=== PATIENT | female | born 1950 | race African-American/Black ===

== ENCOUNTER 2017-10-23 19:30 | Inpatient (IN) | payer OTHER ==
[~2017-10-23 19:30] MED LIST: Lidocaine 1% PF 5 ML VIAL ONE; PHENYLEPHRINE-NS 100 MCG/ML 10 ML SYRINGE ONE; PROPOFOL 200 MG/20 ML VIAL ONE; Succinylcholine Chloride 20 MG/ML 10 ml SYRINGE FS ONE; ePHEDrine/0.9% NaCl/PF SYRINGE 50 mg/10 ml ONE
[2017-10-23 19:59] LABS: Hemoglobin 12.1 g/dL (12.0-16.0); Mean Corpuscular HGB CONC 34.2 g/dL (32.0-36.0); Mean Corpuscular Hemoglobin 32.1 pg (27.0-31.0); Mean Platelet Volume 6.4 fL (7.4-10.4); Platelet Count 318 thou/uL (130-400); RBC Distribution Width 11.1 % (11.5-14.5); Red Blood Cell (RBC) Count 3.75 mill/uL (4.20-5.40); White Blood Cell (WBC) Count 15.7 thou/uL (4.8-10.8)
[2017-10-23 20:06] LABS: INR-International Normal Ratio 1.2; PTT 27.6 SEC (22.9-36.1); Prothrombin Time 14.9 SEC (12.0-14.7)
[2017-10-23 20:10] LABS: ALT (SGPT) 73 U/L (8-55); AST (SGOT) 219 U/L (5-34); Albumin 3.2 g/dL (3.4-4.8); Alkaline Phosphatase 113 U/L (40-150); Anion Gap 17 mmol/L (10-20); BUN (Urea Nitrogen) 21 mg/dL (9.8-20.1); Bilirubin, Total 0.4 mg/dL (0.2-1.2); Calc. Creatinine Clearance 0 mL/min (70-130); Calcium 7.9 mg/dL (7.8-10.44); Carbon Dioxide 14 mmol/L (23-31); Chloride 106 mmol/L (98-107); Estimated GFR-MDRD 25; Globulin 3.4 g/dL (2.4-3.5); Glucose 225 mg/dL (80-115); Potassium 3.8 mmol/L (3.5-5.1); Protein, Total 6.6 g/dL (6.0-8.3); Sodium 133 mmol/L (136-145)
--- NOTE | 2017-10-23 20:10 | RAD ---
AP PELVIS: 10/23/17 HISTORY: Injury, pain in the pelvis. FINDINGS/IMPRESSION: No definite acute fracture or dislocation is seen. POS: [facility]
--- NOTE | 2017-10-23 20:12 | RAD ---
PORTABLE CHEST ONE VIEW: 10/23/17 at 7:44 p.m. HISTORY: Injury, chest pain. FINDINGS/IMPRESSION: The heart size is borderline. The lungs are expanded without focal areas of consolidation, pneumothor ax, or pleural effusions. There are fractures involving the left proximal humerus. POS: [facility]
--- NOTE | 2017-10-23 20:13 | RAD ---
RIGHT FEMUR TWO VIEWS: 10/23/17 HISTORY: Injury. FINDINGS/IMPRESSION: There is a comminuted fracture involving the distal shaft of the right femur. POS: [facility]
[2017-10-23 20:15] LABS: Band 4 % (5-11); Eosinophils 1 % (0-10); Lymphocytes 7 % (21-51); MDiff Complete? YES; Monocytes 5 % (0-10); Neutrophil 83 % (42-75); PLT Morphology Comment Appears Adequate
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
--- NOTE | 2017-10-23 20:25 | CT ---
CT CERVICAL SPINE 10/23/17 PROVIDED CLINICAL HISTORY: Level I trauma. FINDINGS: There is no evidence for fracture or traumatic subluxation. Surgical spine degenerative changes are s een. No prevertebral soft tissue swelling evident. The visualized lung apices appear clear. IMPRESSION: No evidence for fracture or traumatic subluxation. POS: [facility]
[2017-10-23] MEDS ORDERED: Adacel (T-DAP) 0.5 ML VIAL ONE (20:29)
[2017-10-23] MEDS ORDERED: CEFAZOLIN/Water 2 GM/20 ML SYRINGE ONE (20:29)
[2017-10-23] MEDS ORDERED: Dextrose 50% Abboject 50 ML SYRINGE SLOW IVP PRN ×2 (20:43→21:03)
[2017-10-23] MEDS ORDERED: Dextrose 5% in Water 1,000 ML IV PRN ×2 (20:43→21:03)
--- NOTE | 2017-10-23 20:44 | RAD ---
LEFT HUMERUS RADIOGRAPHS 10/23/17 PROVIDED CLINICAL HISTORY: Left arm pain status post injury. FINDINGS: There is a comminuted displaced fracture of the left proximal humerus involving the proximal humeral metadiaphyseal region and likely also the greater tuberosity. The glenohumeral relationship is not we ll assessed on the basis of this study. Foci of increased density projects in the soft tissues anteri or to the distal humerus along with soft tissue gas, presumably reflecting foreign bodies. IMPRESSION: Proximal humeral fracture and distal humeral soft tissue foreign bodies. POS: [facility]
--- NOTE | 2017-10-23 20:47 | RAD ---
TWO VIEWS OF THE LEFT ELBOW: 10/23/17 PROVIDED CLINICAL HISTORY: Left elbow pain status post injury. FINDINGS: Evaluation is limited as the patient is unable to tolerate routine positioning. If there is evidence for a fracture fragment projecting at the ulnar aspect of the distal humerus on the frontal view, the donor site for which is not definitely evident on the basis of this study. There are radiopaque fore ign bodies seen within the soft tissues at the anterior aspect of the elbow. Soft tissue gas is also seen. IMPRESSION: 1. Fracture fragment adjacent to the distal humerus, the donor site for which is not definitely certain. 2. Soft tissue gas and soft tissue foreign bodies. POS: [facility]
--- NOTE | 2017-10-23 21:00 | CT ---
CT CHEST WITH IV CONTRAST CT ABDOMEN WITH IV CONTRAST CT PELVIS WITH IV CONTRAST CORONAL AND SAGITTAL REFORMATIONS OF THE THORACOLUMBAR SPINE: 10/23/17 HISTORY: Level I trauma. FINDINGS: No mediastinal hematoma or intimal flap in the aorta is seen to suggest aortic transection. No perica rdial or left pleural effusion seen. A tiny right pleural effusion is present. A small right pneumoth orax is present. A 15 mm nodule is seen in the right breast. The liver, spleen, pancreas, adrenal glands and kidneys are intact. Gallbladder and urinary bladder a lso appear intact. The uterus is present. There is emphysema in the soft tissue and subcutaneous fat in the right lower lateral chest extending posteriorly in the abdomen and pelvis. The air dissects into the right lower anterolateral wall musc ulature and in the right lower retroperitoneum. There are multiple right sided rib fractures from the fourth through the twelfth ribs. A comminuted f racture of the left proximal humerus is present. There is a buckle fracture of the anterior aspect of the left sacral ala. There are fractures involving the left superior and inferior pubic rami and the medial aspect of the right superior pubic ramus. Adjacent soft tissue swelling is seen in the anteri or aspect of the right lower abdomen/pelvis. Soft tissue swelling is also noted in the left posterola teral pelvis. Absence of oral contrast reduces the sensitivity of the exam particularly for evaluation of bowel. Emerson wel injury cannot be excluded on this study. IMPRESSION: 1. No definite evidence of solid organ injury. 2. Small right pneumothorax with multiple right sided rib fractures (4-12). 3. Comminuted left proximal humerus fracture. 4. Fractures of the pelvis as discussed above. 5. Soft tissue emphysema and retroperitoneal air as above. Discussed over the telephone with ER physician, Dr. Dagoberto Palencia at 8:36 p.m. POS: [facility]
[2017-10-23] MEDS ORDERED: Morphine 4 MG/ML VIAL SLOW IVP PRN (21:01)
[2017-10-23] MEDS ORDERED: Ondansetron ODT 4 MG TAB PO PRN (21:03)
[2017-10-23] MEDS ORDERED: Ondansetron HCl/PF 4 MG/2 ML Vial IVP PRN (21:03)
[2017-10-23 21:13] LABS: Bilirubin Negative (Negative); Blood, Urine Moderate (Negative); Clarity TURBID (Clear); Glucose, Urine (Dipstick) Negative (Negative); Leukocyte Large (Negative); Nitrite Positive (Negative); Protein, Urine (Dipstick) 100 mg/dL (Neg-Trace); Specific Gravity, Urine 1.024 (1.002-1.036); Urobilinogen 0.2 mg/dL (0.2-1.0); pH, Urine 5.5 (5.0-9.0)
[2017-10-23 21:15] LABS: Bacteria/HPF 4+ HPF (None Seen); Yeast-AUWi Flag 9.7 (0-25.0)
[2017-10-23] MEDS ORDERED: traMADol HCl 50 MG TAB PO SCH (21:15)
[2017-10-23 21:18] LABS: Pathc Cast-AUWi Flag 12.63 (0-2.49)
[2017-10-23 21:19] LABS: Hyaline Casts/LPF 4-6 HYALINE CAST LPF (0-3 Hyaline)
[2017-10-23] MEDS ORDERED: Sodium Bicarbonate 100 MEQ in Dextrose 5% in Water 1,000 ML IV SCH (21:30)
--- NOTE | 2017-10-23 22:22 | RAD ---
RIGHT KNEE TWO VIEWS: 10/23/17 HISTORY: Injury, right knee pain. FINDINGS/IMPRESSION: There are comminuted fractures involving the distal shaft of the right femur. POS: [facility]
[2017-10-23] MEDS ORDERED: Fentanyl 250 MCG/5 ML VIAL ONE (22:23)
[2017-10-23] MEDS ORDERED: Midazolam HCl 2 mg/2 ml Vial ONE (22:23)
[2017-10-23] MEDS ORDERED: metroNIDAZOLE 500 MG/100 ML BAG ONE (22:41)
[2017-10-23] MEDS ORDERED: cefTRIAXone\\ROCEPHIN 1 GM VIAL ONE (22:48)
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
[2017-10-24] MEDS ORDERED: Promethazine HCl 25 MG/ML VIAL SLOW IVP PRN (02:46)
[2017-10-24] MEDS ORDERED: Ondansetron HCl/PF 4 MG/2 ML Vial IVP PRN (02:46)
[2017-10-24] MEDS ORDERED: Promethazine HCl 25 MG/ML VIAL IM PRN (02:46)
[2017-10-24] MEDS: Senokot S 8.6-50 MG TAB PO SCH ×3 (04:05→20:45)
[2017-10-24] MEDS: Acetaminophen 1,000 MG in Premix Bag 1 BAG IVPB SCH ×3 (04:05→09:41)
[2017-10-24 05:13] LABS: #Monocytes 0.2 thou/uL (0.11-0.59); #Neutrophils 8.2 thou/uL (1.40-6.50); %Eosinophils 0.2 % (0.0-10.0); %Lymphocytes 10.2 % (21.0-51.0); %Monocytes 2.5 % (0.0-10.0); %Neutrophils 87.1 % (42.0-75.0); Hemoglobin 10.4 g/dL (12.0-16.0); Mean Corpuscular HGB CONC 33.2 g/dL (32.0-36.0); Mean Corpuscular Hemoglobin 32.5 pg (27.0-31.0); Mean Platelet Volume 6.9 fL (7.4-10.4); Platelet Count 315 thou/uL (130-400); RBC Distribution Width 11.3 % (11.5-14.5); White Blood Cell (WBC) Count 9.5 thou/uL (4.8-10.8)
[2017-10-24 05:24] LABS: Anion Gap 20 mmol/L (10-20); BUN (Urea Nitrogen) 25 mg/dL (9.8-20.1); Calc. Creatinine Clearance 25 mL/min (70-130); Calcium 7.6 mg/dL (7.8-10.44); Carbon Dioxide 13 mmol/L (23-31); Chloride 107 mmol/L (98-107); Estimated GFR-MDRD 16; Glucose 203 mg/dL (80-115); Magnesium 1.7 mg/dL (1.6-2.6); Phosphorus 7.9 mg/dL (2.3-4.7); Potassium 5.5 mmol/L (3.5-5.1); Sodium 134 mmol/L (136-145)
[2017-10-24 05:33] LABS: Lactic Acid 7.6 mmol/L (0.5-2.2)
[2017-10-24] MEDS: metroNIDAZOLE 500 MG in Premix Bag 1 BAG IVPB SCH ×2 (06:04→13:51)
--- NOTE | 2017-10-24 08:07 | RAD ---
PORTABLE CHEST: DATE: 10/24/17. PROVIDED CLINICAL HISTORY: Pneumothorax. FINDINGS: Cardiac and mediastinal silhouette is within normal limits. Lungs appear clear. No radiographically apparent pneumothorax. Right-sided rib fractures are seen. IMPRESSION: No radiographically apparent pneumothorax. POS: [facility]
--- NOTE | 2017-10-24 08:44 | RAD ---
TWO VIEWS OF THE LEFT ELBOW: DATE: 10/24/17. Provided CLINICAL HISTORY: Fracture. FINDINGS: Two spot fluoroscopic intraoperative images demonstrate screw fixation of medial humeral epicondylar fracture fragment with subsequent improved alignment. POS: [facility]
--- NOTE | 2017-10-24 08:57 | RAD ---
TWO VIEWS OF THE RIGHT FEMUR: DATE: 10/24/17. PROVIDED CLINICAL HISTORY: ORIF. FINDINGS: Spot fluoroscopic frontal and lateral views of the right femur demonstrate lateral side plate and scr ew fixation of previously described right distal femoral fracture. There is resultant improved align ment. POS: [facility]
[2017-10-24] MEDS ORDERED: Sulfameth/Trimethoprim DS 800-160mg TAB PO SCH (09:00)
[2017-10-24] MEDS ORDERED: Heparin 1,000 UNITS/ML VIAL ONE (09:00)
[2017-10-24] MEDS ORDERED: Prevnar 13-Val Conj/PF 0.5 ML SYRINGE IM ONE (09:00)
--- NOTE | 2017-10-24 09:13 | RAD ---
LEFT ELBOW RADIOGRAPHS 2 VIEWS: DATE: 10/23/17. PROVIDED CLINICAL HISTORY: Injury. FINDINGS: Comparison is made with the examination performed earlier same date. There is a fracture involving t he medial humeral epicondyle which appears displaced distally and anteriorly. No additional fracture is evident. Soft tissue gas is seen. Intraarticular gas is likely present. Increased radiodensity within the soft tissues of the anterior distal humeral region may reflect foreign body. IMPRESSION: Displaced medial humeral epicondylar fracture with associated intraarticular gas. POS: [facility]
[2017-10-24] MEDS: Famotidine 20 MG TAB PO SCH (09:31)
[2017-10-24] MEDS: traMADol HCl 50 MG TAB PO SCH ×2 (09:32→20:46)
[2017-10-24] MEDS: HumaLOG 300 UNITS/3 ML VIAL SC PRN ×2 (11:04→15:41)
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
[2017-10-24] MEDS: Acetaminophen 500 MG TAB PO SCH ×2 (11:43→17:29)
--- NOTE | 2017-10-24 13:22 | CT ---
CT OF THE LEFT SHOULDER: DATE: 10/24/17. PROVIDED CLINICAL HISTORY: Left proximal humerus fracture. FINDINGS: There is a markedly comminuted and displaced fracture of the left proximal humerus. There is a segme ntal fracture of the proximal humeral metadiaphyseal region with medial displacement of the distal h umeral diaphyseal component with respect to the segmental fragment. There is a displaced fracture of the greater tuberosity of the humerus with displacement of the greater tuberosity cephalad and poste riorly. Lesser tuberosity and humeral head remain as a separate fragment. The glenohumeral relation ship is maintained, though the fragment is prominently internally rotated. Joint effusion and adjace nt soft tissue edema are seen. There is poor definition to the short head biceps/coracobrachialis mu sculature which may reflect edema, hematoma, or muscular and tendinous disruption. The glenoid and r emainder of the scapula appear normal. The visualized left lung field appears clear. IMPRESSION: 1. Markedly comminuted and displaced left proximal humeral fracture as described above. 2. Abnormal appearance to the short head biceps and coracobrachialis musculature suggesting injury. POS: [facility]
[2017-10-24] MEDS: Sodium Bicarbonate 150 MEQ in Dextrose 5% in Water 1,000 ML IV SCH (14:25)
[2017-10-24] MEDS: Heparin 5,000 UNITS/ML VIAL SC SCH ×2 (14:25→20:46)
[2017-10-24 15:59] LABS: Lactic Acid 5.9 mmol/L (0.5-2.2)
[2017-10-24 16:04] LABS: Anion Gap 19 mmol/L (10-20); BUN (Urea Nitrogen) 27 mg/dL (9.8-20.1); Calc. Creatinine Clearance 22 mL/min (70-130); Calcium 6.5 mg/dL (7.8-10.44); Carbon Dioxide 13 mmol/L (23-31); Chloride 98 mmol/L (98-107); Estimated GFR-MDRD 14; Glucose 139 mg/dL (80-115); Potassium 4.3 mmol/L (3.5-5.1); Sodium 126 mmol/L (136-145)
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
[2017-10-24] MEDS: Cipro 250 MG TAB PO SCH (20:45)
[2017-10-24] MEDS ORDERED: cefTRIAXone\\ROCEPHIN 2 GM in Sodium Chloride 0.9% 100 ML IVPB SCH (22:00)
[2017-10-25] MEDS: metroNIDAZOLE 500 MG in Premix Bag 1 BAG IVPB SCH ×2 (00:24→06:09)
[2017-10-25] MEDS: Acetaminophen 500 MG TAB PO SCH ×4 (00:30→17:55)
[2017-10-25] MEDS: Sodium Bicarbonate 150 MEQ in Dextrose 5% in Water 1,000 ML IV SCH (03:17)
[2017-10-25 04:31] LABS: #Eosinphils 0.1 thou/uL (0.0-0.7); #Lymphocytes 1.4 thou/uL (1.20-3.40); #Monocytes 0.3 thou/uL (0.11-0.59); #Neutrophils 6.5 thou/uL (1.40-6.50); %Basophils 0.3 % (0.0-1.0); %Eosinophils 0.8 % (0.0-10.0); %Lymphocytes 16.5 % (21.0-51.0); %Monocytes 4.1 % (0.0-10.0); %Neutrophils 78.3 % (42.0-75.0); Hemoglobin 8.3 g/dL (12.0-16.0); Mean Corpuscular HGB CONC 34.6 g/dL (32.0-36.0); Mean Corpuscular Hemoglobin 32.6 pg (27.0-31.0); Mean Corpuscular Volume 94.3 fl (81.0-99.0); Mean Platelet Volume 7.2 fL (7.4-10.4); Platelet Count 210 thou/uL (130-400); RBC Distribution Width 11.1 % (11.5-14.5); Red Blood Cell (RBC) Count 2.55 mill/uL (4.20-5.40); White Blood Cell (WBC) Count 8.3 thou/uL (4.8-10.8)
[2017-10-25 04:50] LABS: Anion Gap 21 mmol/L (10-20); BUN (Urea Nitrogen) 31 mg/dL (9.8-20.1); CK (CPK) 3175 U/L (29-168); Calc. Creatinine Clearance 17 mL/min (70-130); Calcium 6.2 mg/dL (7.8-10.44); Carbon Dioxide 16 mmol/L (23-31); Chloride 93 mmol/L (98-107); Estimated GFR-MDRD 11; Glucose 146 mg/dL (80-115); Magnesium 1.2 mg/dL (1.6-2.6); Phosphorus 7.3 mg/dL (2.3-4.7); Potassium 4.4 mmol/L (3.5-5.1); Sodium 126 mmol/L (136-145)
[2017-10-25] MEDS ORDERED: Sodium Chloride 0.9% 500 ML IV SCH (05:15)
[2017-10-25] MEDS: Cipro 250 MG TAB PO SCH ×2 (06:09→21:07)
[2017-10-25] MEDS ORDERED: Magnesium Sulfate 2 GM in Sodium Chloride 0.9% 250 ML 250 ML IVPB SCH (07:30)
[2017-10-25] MEDS ORDERED: CEFAZOLIN/Water 2 GM/20 ML SYRINGE SLOW IVP SCH (07:30)
[2017-10-25] MEDS ORDERED: Magnesium 2 GM/NS 0.9% 100 ML 2 GM in Premix Bag 1 BAG IVPB SCH (07:45)
[2017-10-25] MEDS: traMADol HCl 50 MG TAB PO SCH ×2 (09:33→21:06)
[2017-10-25] MEDS: Famotidine 20 MG TAB PO SCH (09:43)
[2017-10-25] MEDS: Senokot S 8.6-50 MG TAB PO SCH ×2 (09:43→21:06)
[2017-10-25] MEDS ORDERED: CEFAZOLIN/Water 2 GM/20 ML SYRINGE ONE (11:55)
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
[2017-10-25] MEDS ORDERED: Morphine 10 MG/ML VIAL ONE (13:35)
[2017-10-25] MEDS ORDERED: Glycopyrrolate 0.2 MG/ML 5 ML SYRINGE ONE (15:48)
[2017-10-25] MEDS ORDERED: PROPOFOL 200 MG/20 ML VIAL ONE (15:48)
[2017-10-25] MEDS ORDERED: Lidocaine 1% PF 5 ML VIAL ONE (15:48)
[2017-10-25] MEDS ORDERED: ePHEDrine/0.9% NaCl/PF SYRINGE 50 mg/10 ml ONE (15:48)
[2017-10-25] MEDS ORDERED: PHENYLEPHRINE-NS 100 MCG/ML 10 ML SYRINGE ONE (15:48)
[2017-10-25] MEDS ORDERED: Furosemide 20 MG/2 ML VIAL ONE (15:49)
[2017-10-25] MEDS ORDERED: Ondansetron HCl/PF 4 MG/2 ML Vial IVP PRN (15:55)
[2017-10-25] MEDS ORDERED: Promethazine HCl 25 MG/ML VIAL SLOW IVP PRN (15:55)
[2017-10-25] MEDS ORDERED: Promethazine HCl 25 MG/ML VIAL IM PRN (15:55)
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
[2017-10-25] MEDS: Heparin 5,000 UNITS/ML VIAL SC SCH (21:08)
[2017-10-26] MEDS: Acetaminophen 500 MG TAB PO SCH ×4 (00:12→18:10)
[2017-10-26] MEDS: Sodium Bicarbonate 150 MEQ in Dextrose 5% in Water 1,000 ML IV SCH (00:12)
[2017-10-26] MEDS ORDERED: Magnesium 2 GM/NS 0.9% 100 ML 2 GM in Premix Bag 1 BAG IVPB SCH (04:15)
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
[2017-10-26] MEDS: Cipro 250 MG TAB PO SCH (05:31)
[2017-10-26 06:01] LABS: Albumin 2.2 g/dL (3.4-4.8); Anion Gap 20 mmol/L (10-20); BUN (Urea Nitrogen) 44 mg/dL (9.8-20.1); BUN/Creatinine Ratio 6.53; Calc. Creatinine Clearance 14 mL/min (70-130); Carbon Dioxide 19 mmol/L (23-31); Chloride 91 mmol/L (98-107); Estimated GFR-MDRD 7; Glucose 104 mg/dL (80-115); Phosphorus 7.7 mg/dL (2.3-4.7); Potassium 4.3 mmol/L (3.5-5.1); Sodium 126 mmol/L (136-145)
[2017-10-26 06:11] LABS: Calcium 5.9 mg/dL (7.8-10.44)
[2017-10-26] MEDS ORDERED: cefTRIAXone\\ROCEPHIN 1 GM in Sodium Chloride 0.9% 100 ML IVPB SCH (09:15)
[2017-10-26] MEDS: traMADol HCl 50 MG TAB PO SCH ×2 (09:53→21:03)
[2017-10-26] MEDS: Senokot S 8.6-50 MG TAB PO SCH ×2 (09:53→21:03)
[2017-10-26] MEDS: Famotidine 20 MG TAB PO SCH (09:53)
[2017-10-26] MEDS: cefTRIAXone\\ROCEPHIN 1 GM, Syringe 0.4 ML in Sterile Water 9.6 ML SLOW IVP SCH (09:56)
[2017-10-26] MEDS: Heparin 5,000 UNITS/ML VIAL SC SCH ×2 (09:57→20:57)
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
--- NOTE | 2017-10-26 11:01 | ULT ---
BILATERAL RENAL ULTRASOND: Date: 10/26/17 INDICATION: Acute renal injury and chronic kidney disease. FINDINGS: Right kidney measures 7.5 x 3.5 x 4.3 cm. Right renal cortical thickness measured 1.1 cm. No hydronep hrosis or focal renal lesion is evident. Left kidney measures 9.8 x 5.3 x 5.3 cm. Left renal cortical thickness measured 2.0 cm. No focal yuniel l lesion or hydronephrosis is evident. Head catheter is seen within the bladder. IMPRESSION: 1. No focal renal lesion or hydronephrosis. 2. Mild right renal cortical thinning. POS: [facility]
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
--- NOTE | 2017-10-26 14:06 | OP ---
DATE OF PROCEDURE: 10/26/2017 SURGEON: Dr. Sharon Wise PROCEDURE: Left femoral dialysis catheter placement. MEDICATION: 2% lidocaine. COMPLICATIONS: None. DETAILS OF PROCEDURE: After informed consent was obtained, the patient was prepped and draped in a s terile fashion. The left femoral vein was approached in layers under real time ultrasound guidance. After serial dilatation, a Trialysis catheter was secured over wire. The patient tolerated the proc edure very well. No immediate postop complications. The plan is line is good for dialysis initiatio n.
[2017-10-26 14:31] LABS: Ionized Calcium 3.2 mg/dL (4.5-5.6)
[2017-10-26 15:14] LABS: HBSAB Concentration 0.64 mIU/mL; HBSAg Index 0.23 S/CO (0-0.99); Hep B Core Total Ab Non-Reactive (NonReactive); Hep B Core Total Index 0.12 S/CO (0-0.79); Hep B Surf AB Non-Reactive (NonReactive); Hep B Surf Ag Non-Reactive S/CO (NonReactive); Hep C IgG Ab Non-Reactive (NonReactive); Hep C Index 0.14 S/CO (0-0.79)
[2017-10-27] MEDS: Acetaminophen 500 MG TAB PO SCH ×4 (01:40→16:55)
[2017-10-27] MEDS: Sodium Bicarbonate 150 MEQ in Dextrose 5% in Water 1,000 ML IV SCH (01:59)
[2017-10-27 06:11] LABS: Band 16 % (5-11); Eosinophils 2 % (0-10); Hemoglobin 6.3 g/dL (12.0-16.0); Lymphocytes 6 % (21-51); MDiff Complete? YES; Mean Corpuscular Hemoglobin 31.7 pg (27.0-31.0); Mean Corpuscular Volume 93.2 fl (81.0-99.0); Mean Platelet Volume 6.5 fL (7.4-10.4); Monocytes 4 % (0-10); Neutrophil 71 % (42-75); Platelet Count 205 thou/uL (130-400); RBC Distribution Width 11.7 % (11.5-14.5); Red Blood Cell (RBC) Count 1.97 mill/uL (4.20-5.40); White Blood Cell (WBC) Count 8.9 thou/uL (4.8-10.8)
[2017-10-27 06:18] LABS: Albumin 2.1 g/dL (3.4-4.8); Anion Gap 16 mmol/L (10-20); BUN (Urea Nitrogen) 35 mg/dL (9.8-20.1); BUN/Creatinine Ratio 5.58; Calc. Creatinine Clearance 15 mL/min (70-130); Calcium 6.3 mg/dL (7.8-10.44); Carbon Dioxide 28 mmol/L (23-31); Chloride 89 mmol/L (98-107); Estimated GFR-MDRD 8; Glucose 99 mg/dL (80-115); Magnesium 1.5 mg/dL (1.6-2.6); Phosphorus 6.7 mg/dL (2.3-4.7); Potassium 4.3 mmol/L (3.5-5.1); Sodium 129 mmol/L (136-145)
[2017-10-27] MEDS: Heparin 5,000 UNITS/ML VIAL SC SCH ×2 (08:06→21:25)
[2017-10-27] MEDS: Famotidine 20 MG TAB PO SCH (08:06)
[2017-10-27] MEDS: Senokot S 8.6-50 MG TAB PO SCH ×2 (08:06→21:26)
[2017-10-27] MEDS: traMADol HCl 50 MG TAB PO SCH ×2 (08:07→21:26)
[2017-10-27] MEDS: cefTRIAXone\\ROCEPHIN 1 GM, Syringe 0.4 ML in Sterile Water 9.6 ML SLOW IVP SCH (12:14)
[2017-10-27] MEDS: hydrALAZINE 20 MG/ML VIAL SLOW IVP PRN (13:38)
--- NOTE | 2017-10-27 14:09 | RAD ---
SUPINE ABDOMEN: Indications: Assess NG feeding tube placement. FINDINGS: Dobbhoff type tube has been placed. The tip is positioned just beyond the EG junction in the epigastr ic fundus. There are gas filled mildly distended loops of small bowel in the mid abdomen. No mass effect or abno rmal calcification. IMPRESSION: Tip of feeding tube is just beyond the EG junction. Recommend advancement into the region of the corinne tom antrum. POS: [facility]
--- NOTE | 2017-10-27 15:40 | RAD ---
ABDOMEN 1 VIEW: HISTORY: Dobbhoff placement. FINDINGS/IMPRESSION: Comparison is made to earlier exam of 12:43 p.m. from the same date. The Dobbhoff tube has been advanced with tip directed to the left and located in the gastric fundus. POS: [facility]
[2017-10-27] MEDS ORDERED: Amlodipine 5 MG TAB PO SCH (16:30)
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
[2017-10-28] MEDS: Acetaminophen 500 MG TAB PO SCH ×4 (00:15→18:15)
[2017-10-28 05:17] LABS: Albumin 2.3 g/dL (3.4-4.8); Anion Gap 15 mmol/L (10-20); BUN (Urea Nitrogen) 31 mg/dL (9.8-20.1); BUN/Creatinine Ratio 5.47; Calc. Creatinine Clearance 16 mL/min (70-130); Calcium 7.8 mg/dL (7.8-10.44); Carbon Dioxide 26 mmol/L (23-31); Chloride 97 mmol/L (98-107); Estimated GFR-MDRD 9; Glucose 107 mg/dL (80-115); Magnesium 1.8 mg/dL (1.6-2.6); Phosphorus 6.2 mg/dL (2.3-4.7); Potassium 4.4 mmol/L (3.5-5.1); Sodium 134 mmol/L (136-145)
[2017-10-28 05:18] LABS: Band 13 % (5-11); Lymphocytes 9 % (21-51); MDiff Complete? YES; Mean Corpuscular Hemoglobin 31.3 pg (27.0-31.0); Mean Corpuscular Volume 91.9 fl (81.0-99.0); Mean Platelet Volume 6.6 fL (7.4-10.4); Metamyelocyte 1 % (0-0); Monocytes 11 % (0-10); Neutrophil 66 % (42-75); Nucleated RBC 1 % (0); PLT Morphology Comment Appears Adequate; Platelet Count 213 thou/uL (130-400); RBC Distribution Width 12.9 % (11.5-14.5); Red Blood Cell (RBC) Count 2.86 mill/uL (4.20-5.40); White Blood Cell (WBC) Count 10.3 thou/uL (4.8-10.8)
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
--- NOTE | 2017-10-28 08:48 | RAD ---
ABDOMEN 1 VIEW: HISTORY: A 66-year-old female for Dobbhoff tube placement verification. COMPARISON: 10/27/17. FINDINGS: The single view of the upper abdomen does not completely include the right side of the abdomen but do es include the central and left side of the abdomen. A Dobbhoff tube is noted in place with the tip probably in the region of the antrum of the stomach. IMPRESSION: Dobbhoff tube in place with the tip probably in the region of the antrum of the stomach. POS: [facility]
[2017-10-28] MEDS ORDERED: Amlodipine 5 MG TAB PO SCH (09:00)
[2017-10-28] MEDS: hydrALAZINE 20 MG/ML VIAL SLOW IVP PRN ×2 (09:29→18:16)
[2017-10-28] MEDS ORDERED: Activase 2 MG VIAL CATH SCH (10:15)
[2017-10-28] MEDS: traMADol HCl 50 MG TAB PO SCH ×2 (10:27→20:24)
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
[2017-10-28] MEDS: Heparin 5,000 UNITS/ML VIAL SC SCH ×2 (14:45→20:26)
[2017-10-28] MEDS: Amlodipine 5 MG TAB PO SCH (14:46)
[2017-10-28] MEDS: Famotidine 20 MG TAB PO SCH (14:46)
[2017-10-28] MEDS: Senokot S 8.6-50 MG TAB PO SCH ×2 (14:46→20:24)
[2017-10-28] MEDS: Polyethylene Glycol 3350 17 GM Packet PO SCH (14:47)
--- NOTE | 2017-10-28 16:11 | RAD ---
RADIOGRAPH ABDOMEN 1 VIEW: DATE: 10/28/17 TIME: 3:45 p.m. HISTORY: Manipulation of Dobhoff feeding tube in 66-year-old female. COMPARISON: 10/28/17, 2:05 a.m. FINDINGS: Whereas the Dobhoff feeding tube was previously curled along the path of the greater curvature of the stomach, with distal tip in the region of the gastric antrum, to the right of midline, it has now be en retracted and has a straight oblique orientation, with distal tip overlying the L3 vertebral body near midline, perhaps in the distal body of the stomach. There is a vertically ascending double lumen catheter from the left side of the pelvis, with distal tip just to the left of the L4 vertebral bod y. The exact location is uncertain. IMPRESSION: 1. Dobhoff feeding tube tip is at the distal body of the stomach, apparently. 2. A vertically ascending double lumen catheter from the pelvis, with distal tip to the left of the L4 vertebral body. The exact location is unknown. POS: [facility]
[2017-10-28] MEDS ORDERED: Polyethylene Glycol 3350 17 GM Packet PER TUBE SCH (16:29)
[2017-10-28] MEDS: cefTRIAXone\\ROCEPHIN 1 GM, Syringe 0.4 ML in Sterile Water 9.6 ML SLOW IVP SCH (16:33)
--- NOTE | 2017-10-28 18:53 | RAD ---
FRONTAL RADIOGRAPH CHEST SUPINE 10/28/17 COMPARISON: 09/27/17 HISTORY: Central line placement. There is a right sided subclavian vascular catheter, distal tip overlying the region of the cavoatria l junction. Dobhoff feeding tube extends into upper abdomen. Patchy opacity noted in right base media lly suggesting volume loss or infiltrate. Heart and mediastinal contours are unremarkable. Supine damon ging limits assessment for pneumothorax and pleural fluid. IMPRESSION: Lines and tubes as above. POS: [facility]
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
[2017-10-29] MEDS: Acetaminophen 500 MG TAB PO SCH ×4 (00:22→19:11)
[2017-10-29] MEDS: Labetalol HCl 100 MG/20 ML VIAL SLOW IVP PRN ×4 (00:23→20:53)
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
[2017-10-29] MEDS: hydrALAZINE 20 MG/ML VIAL SLOW IVP PRN (08:12)
[2017-10-29] MEDS: Heparin 5,000 UNITS/ML VIAL SC SCH ×2 (08:13→20:52)
[2017-10-29] MEDS: Polyethylene Glycol 3350 17 GM Packet PO SCH (08:13)
[2017-10-29] MEDS: traMADol HCl 50 MG TAB PO SCH ×2 (08:14→20:52)
[2017-10-29] MEDS: Famotidine 20 MG TAB PO SCH (08:14)
[2017-10-29] MEDS: Amlodipine 5 MG TAB PO SCH (08:15)
[2017-10-29] MEDS: cefTRIAXone\\ROCEPHIN 1 GM, Syringe 0.4 ML in Sterile Water 9.6 ML SLOW IVP SCH (08:16)
[2017-10-29] MEDS: Senokot S 8.6-50 MG TAB PO SCH ×2 (08:16→20:52)
[2017-10-29 08:59] LABS: Anion Gap 14 mmol/L (10-20); BUN (Urea Nitrogen) 49 mg/dL (9.8-20.1); Calc. Creatinine Clearance 13 mL/min (70-130); Calcium 8.1 mg/dL (7.8-10.44); Carbon Dioxide 29 mmol/L (23-31); Chloride 97 mmol/L (98-107); Estimated GFR-MDRD 7; Glucose 128 mg/dL (80-115); Magnesium 1.9 mg/dL (1.6-2.6); Phosphorus 5.9 mg/dL (2.3-4.7); Sodium 136 mmol/L (136-145)
[2017-10-29] MEDS ORDERED: CEFAZOLIN/Water 2 GM/20 ML SYRINGE SLOW IVP SCH (09:30)
--- NOTE | 2017-10-29 10:33 | OP ---
PROCEDURE PERFORMED: Replacement of the left femoral dialysis catheter. INDICATION: Need for continued dialysis. DETAILS OF PROCEDURE: The patient's left femoral catheter was replaced over the wire as the patient has already pulled the original catheter. The patient tolerated the procedure very well and catheter will be good for use, so go for continued hemodialysis.
[2017-10-29] MEDS ORDERED: Heparin 1,000 UNITS/ML VIAL ONE (11:11)
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
[2017-10-29] MEDS ORDERED: Fentanyl 100 MCG/2 ML VIAL ONE (16:33)
[2017-10-29] MEDS ORDERED: Midazolam HCl 2 mg/2 ml Vial ONE (16:33)
[2017-10-29] MEDS ORDERED: Propofol 500 MG/50 ML VIAL ONE (16:34)
[2017-10-29] MEDS ORDERED: Bupivacaine HCl 0.5%/Epinephrine 1:200,000/PF 30 ml Vial ONE (16:46)
[2017-10-29] MEDS ORDERED: Sodium Chloride 0.9% 20 ML ONE (16:46)
[2017-10-29] MEDS ORDERED: Heparin 10,000 UNITS/1 ML VIAL ONE (16:46)
[2017-10-29] MEDS ORDERED: CEFAZOLIN/Water 2 GM/20 ML SYRINGE ONE (17:11)
[2017-10-29] MEDS ORDERED: Ondansetron HCl/PF 4 MG/2 ML Vial IVP PRN (18:00)
[2017-10-29] MEDS ORDERED: Promethazine HCl 25 MG/ML VIAL IM PRN (18:00)
[2017-10-29] MEDS ORDERED: Promethazine HCl 25 MG/ML VIAL SLOW IVP PRN (18:00)
--- NOTE | 2017-10-29 19:09 | RAD ---
ABDOMEN ONE VIEW: 10/29/17 HISTORY: 66-year-old female with history of Dobhoff tube for placement evaluation. COMPARISON: 10/28/17. There is a Dobhoff tube in place which appears to be in the region of the distal antrum of the stomac h or possibly within the duodenum bulb region. There is some scattered gas in large and small bowel. IMPRESSION: Dobhoff tube in place. POS: [facility]
--- NOTE | 2017-10-29 19:16 | RAD ---
PORTABLE SUPINE CHEST ONE VIEW: 10/29/17 HISTORY: 66-year-old female with history of ESRD. Followup line placement. COMPARISON: 10/28/17. Dual lumen venous access catheter on the right. Dobhoff tube catheter overlying the chest. There is s ome bilateral vascular congestion and some linear and interstitial parenchymal changes in the perihil ar region a lower lung zones probably representing some bilateral edema which appear more marked than on the prior study. Heart size is within normal limits. No pneumothorax. Comminuted fracture left pr oximal humerus with malalignment. IMPRESSION: Patchy linear and interstitial parenchymal changes in the perihilar regions and lower lung zones, nisha ewhat worse on the right side, evidence for some asymmetric pulmonary edema, versus some bilateral at ypical pneumonitis. These parenchymal changes are somewhat more prominent than on the 10/28/17 study. C ontinued short term followup. POS: [facility]
[2017-10-29] MEDS ORDERED: PROPOFOL 200 MG/20 ML VIAL ONE (20:03)
[2017-10-29] MEDS: Metoclopramide HCl 10 MG/2 ML VIAL IVP SCH (20:53)
[2017-10-29] MEDS ORDERED: Fentanyl 100 MCG/2 ML VIAL SLOW IVP SCH (23:00)
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
[2017-10-30] MEDS ORDERED: Fentanyl 100 MCG/2 ML VIAL SLOW IVP SCH ×2 (00:15→08:00)
[2017-10-30] MEDS: Acetaminophen 500 MG TAB PO SCH ×4 (01:31→18:09)
[2017-10-30] MEDS: Labetalol HCl 100 MG/20 ML VIAL SLOW IVP PRN ×2 (02:04→12:02)
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
[2017-10-30] MEDS: Metoclopramide HCl 10 MG/2 ML VIAL IVP SCH ×3 (06:28→22:15)
[2017-10-30] MEDS: hydrALAZINE 20 MG/ML VIAL SLOW IVP PRN ×2 (06:38→15:38)
[2017-10-30 07:47] LABS: #Basophils 0.1 thou/uL (0.0-0.2); #Eosinphils 0.2 thou/uL (0.0-0.7); #Lymphocytes 1.5 thou/uL (1.20-3.40); #Monocytes 1.2 thou/uL (0.11-0.59); #Neutrophils 6.8 thou/uL (1.40-6.50); %Basophils 0.6 % (0.0-1.0); %Eosinophils 2.5 % (0.0-10.0); %Monocytes 12.7 % (0.0-10.0); %Neutrophils 69.2 % (42.0-75.0); Hemoglobin 9.3 g/dL (12.0-16.0); Mean Corpuscular HGB CONC 33.3 g/dL (32.0-36.0); Mean Corpuscular Hemoglobin 31.7 pg (27.0-31.0); Mean Corpuscular Volume 95.1 fl (81.0-99.0); Mean Platelet Volume 6.8 fL (7.4-10.4); Platelet Count 283 thou/uL (130-400); RBC Distribution Width 13.3 % (11.5-14.5); Red Blood Cell (RBC) Count 2.93 mill/uL (4.20-5.40); White Blood Cell (WBC) Count 9.8 thou/uL (4.8-10.8)
[2017-10-30 09:01] LABS: Anion Gap 16 mmol/L (10-20); BUN (Urea Nitrogen) 44 mg/dL (9.8-20.1); Calc. Creatinine Clearance 15 mL/min (70-130); Calcium 8.3 mg/dL (7.8-10.44); Carbon Dioxide 28 mmol/L (23-31); Chloride 98 mmol/L (98-107); Estimated GFR-MDRD 8; Glucose 127 mg/dL (80-115); Magnesium 1.9 mg/dL (1.6-2.6); Phosphorus 3.8 mg/dL (2.3-4.7); Potassium 4.2 mmol/L (3.5-5.1); Sodium 138 mmol/L (136-145)
[2017-10-30] MEDS: Amlodipine 5 MG TAB PO SCH (09:39)
[2017-10-30] MEDS: Heparin 5,000 UNITS/ML VIAL SC SCH ×2 (09:41→20:36)
[2017-10-30] MEDS: traMADol HCl 50 MG TAB PO SCH ×2 (09:43→20:33)
[2017-10-30] MEDS: Famotidine 20 MG TAB PO SCH (09:46)
[2017-10-30] MEDS: Polyethylene Glycol 3350 17 GM Packet PO SCH (09:47)
[2017-10-30] MEDS: Senokot S 8.6-50 MG TAB PO SCH ×2 (09:48→20:37)
[2017-10-30] MEDS: cefTRIAXone\\ROCEPHIN 1 GM, Syringe 0.4 ML in Sterile Water 9.6 ML SLOW IVP SCH (09:49)
[2017-10-30] MEDS ORDERED: Heparin 1,000 UNITS/ML VIAL ONE (11:11)
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
[2017-10-30] MEDS ORDERED: Magnesium Citrate 300 ML BOT PO SCH (19:00)
[2017-10-30] MEDS ORDERED: Labetalol 100 MG TAB PO SCH (22:15)
[2017-10-31] MEDS: Acetaminophen 500 MG TAB PO SCH ×4 (01:40→18:21)
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
[2017-10-31] MEDS: Labetalol HCl 100 MG/20 ML VIAL SLOW IVP PRN (04:34)
[2017-10-31] MEDS: Metoclopramide HCl 10 MG/2 ML VIAL IVP SCH (06:15)
--- NOTE | 2017-10-31 07:37 | ULT ---
ULTRASOUND VASCULAR MAPPING FOR DIALYSIS ACCESS: Date: 10/30/17 HISTORY: ESRD. FINDINGS: Exam is limited to the right upper extremity. The left arm is fractured and in a cast. RIGHT CEPHALIC VEIN Proximal Arm: 2.1 mm Mid Arm: 2.5 mm Distal Arm: 3.4 mm Level Of Elbow: Clotted RIGHT BASILIC VEIN Proximal Arm: 5.7 mm Mid Arm: 4.7 mm Distal Arm: 3.5 mm Antecubital Fossa: 2.3 mm Proximal Forearm: 1.8 mm Mid Forearm: 1.8 mm Distal Forearm: 1.2 mm RIGHT BRACHIAL ARTERY: 4.7 mm RIGHT RADIAL ARTERY: 2.0 mm RIGHT ULNAR ARTERY: 2.3 mm IMPRESSION: Clotted right cephalic vein at just above the level of the elbow. Basilic vein sizes as above. The le ft arm was not evaluated on this study. POS: [facility]
[2017-10-31 07:49] LABS: Anion Gap 13 mmol/L (10-20); BUN (Urea Nitrogen) 35 mg/dL (9.8-20.1); Calc. Creatinine Clearance 19 mL/min (70-130); Carbon Dioxide 27 mmol/L (23-31); Chloride 95 mmol/L (98-107); Estimated GFR-MDRD 11; Glucose 96 mg/dL (80-115); Magnesium 1.7 mg/dL (1.6-2.6); Sodium 131 mmol/L (136-145)
[2017-10-31] MEDS: traMADol HCl 50 MG TAB PO SCH (08:58)
[2017-10-31] MEDS: Amlodipine 10 MG TAB PO SCH (08:59)
[2017-10-31] MEDS: Senokot S 8.6-50 MG TAB PO SCH ×2 (08:59→21:38)
[2017-10-31] MEDS: Famotidine 20 MG TAB PO SCH (08:59)
[2017-10-31] MEDS: Labetalol 100 MG TAB PO SCH ×2 (08:59→21:37)
[2017-10-31] MEDS: Polyethylene Glycol 3350 17 GM Packet PO SCH (08:59)
[2017-10-31] MEDS: Heparin 5,000 UNITS/ML VIAL SC SCH ×2 (09:00→21:37)
[2017-10-31] MEDS: cefTRIAXone\\ROCEPHIN 1 GM, Syringe 0.4 ML in Sterile Water 9.6 ML SLOW IVP SCH (10:24)
--- NOTE | 2017-10-31 13:45 | CT ---
CT HEAD NONCONTRAST DATE: 10/31/17 HISTORY: Altered mental status. COMPARISON: 10/23/17. FINDINGS: Since the previous exam, small foci of decreased density, ill-defined, have developed at the anterior aspect of the periventricular white matter at each cerebral hemisphere. These are 0.9 cm greatest di ameter each. No acute intracranial hemorrhage is evident. Dystrophic calcification left basal ganglia . IMPRESSION: Interval development of lacunar infarcts bifrontal white matter. No acute intracranial abnormalities are otherwise demonstrated. POS: [facility]
--- NOTE | 2017-10-31 19:55 | PRG ---
DATE OF SERVICE: 10/31/2017 SUBJECTIVE: The patient was seen and examined, seems to be doing much better, hemodynamically stable . Blood pressure much improved, status post initiation of antihypertensive medications. OBJECTIVE: HEENT: Unremarkable. CARDIOVASCULAR SYSTEM: First and second heart sounds were heard. RESPIRATORY SYSTEM: Clear to auscultation. DIGESTIVE SYSTEM: Revealed a benign abdomen with positive bowel sounds. EXTREMITIES: No peripheral edema. NEUROLOGIC: Alert, oriented. No lateralizing signs. LYMPHATICS: No peripheral lymphadenopathy. IMPRESSION: 1. Acute on chronic kidney disease, on hemodialysis. 2. Hypertension, much improved status post initiation of antihypertensive medications. 3. Further management to be dependent on the clinical course.
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
[2017-11-01] MEDS: Acetaminophen 500 MG TAB PO SCH ×4 (01:00→21:06)
[2017-11-01 07:23] LABS: Albumin 2.4 g/dL (3.4-4.8); Anion Gap 14 mmol/L (10-20); BUN (Urea Nitrogen) 50 mg/dL (9.8-20.1); BUN/Creatinine Ratio 8.13; Calc. Creatinine Clearance 15 mL/min (70-130); Calcium 7.9 mg/dL (7.8-10.44); Carbon Dioxide 27 mmol/L (23-31); Chloride 96 mmol/L (98-107); Estimated GFR-MDRD 8; Glucose 100 mg/dL (80-115); Phosphorus 5.2 mg/dL (2.3-4.7); Potassium 4.2 mmol/L (3.5-5.1); Sodium 133 mmol/L (136-145)
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
[2017-11-01] MEDS: Labetalol 100 MG TAB PO SCH ×2 (10:32→21:07)
[2017-11-01] MEDS: Amlodipine 10 MG TAB PO SCH (10:32)
[2017-11-01] MEDS: Famotidine 20 MG TAB PO SCH (10:32)
[2017-11-01] MEDS: Heparin 5,000 UNITS/ML VIAL SC SCH ×2 (10:32→21:06)
[2017-11-01] MEDS: Senokot S 8.6-50 MG TAB PO SCH ×3 (10:33→21:07)
[2017-11-01] MEDS: Polyethylene Glycol 3350 17 GM Packet PO SCH (10:33)
[2017-11-01] MEDS: cefTRIAXone\\ROCEPHIN 1 GM, Syringe 0.4 ML in Sterile Water 9.6 ML SLOW IVP SCH (10:34)
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
--- NOTE | 2017-11-02 00:26 | PRG ---
DATE OF SERVICE: 11/01/2017 SUBJECTIVE: The patient was seen and examined with no new complaint. OBJECTIVE: HEENT: Unremarkable. VITAL SIGNS: Temperature 98.4, pulse 82, respiratory rate of 20, O2 sat of 100%, blood pressure 138/ 61. HEENT: Unremarkable with moist oral mucosa. NECK: Supple. No conjunctival injection or icterus. CARDIOVASCULAR: First and second heart sounds were heard. RESPIRATORY: Clear to auscultation. DIGESTIVE: Revealed a benign abdomen with positive bowel sounds. EXTREMITIES: No peripheral edema. SKIN: No new gross rash. LYMPHATICS: No peripheral lymphadenopathy. LABORATORY DATA: Lab showed hemoglobin 9.3. Chemistry showed a creatinine of 6.15, BUN of 50, phosp horus 5.2. IMPRESSION: 1. Advanced chronic kidney disease. 2. Acute tubular necrosis, culminating into end-stage renal disease for now, though not completely c onfirmed. The patient is still dependent on hemodialysis. PLAN: 1. The patient to be dialyzed today as the patient is going to be undergoing several surgeries tomor row. Therefore, we will make this patient scheduled to be Wednesday, Wednesday, Wednesday from now onwards . 2. Erythropoiesis-stimulating agent. 3. Further management to be dependent on the clinical course.
[2017-11-02] MEDS: Acetaminophen 500 MG TAB PO SCH ×4 (01:27→16:44)
[2017-11-02 05:18] LABS: Albumin 2.5 g/dL (3.4-4.8); Anion Gap 11 mmol/L (10-20); BUN (Urea Nitrogen) 30 mg/dL (9.8-20.1); BUN/Creatinine Ratio 6.55; Calc. Creatinine Clearance 20 mL/min (70-130); Calcium 8.1 mg/dL (7.8-10.44); Carbon Dioxide 30 mmol/L (23-31); Chloride 98 mmol/L (98-107); Estimated GFR-MDRD 12; Glucose 97 mg/dL (80-115); Phosphorus 4.7 mg/dL (2.3-4.7); Potassium 4.2 mmol/L (3.5-5.1); Sodium 135 mmol/L (136-145)
[2017-11-02] MEDS ORDERED: Vancomycin HCl 1 GM in Premix Bag 1 BAG IVPB SCH (07:00)
[2017-11-02] MEDS ORDERED: CEFAZOLIN/Water 2 GM/20 ML SYRINGE SLOW IVP SCH (07:30)
[2017-11-02] MEDS: Heparin 5,000 UNITS/ML VIAL SC SCH ×2 (07:33→20:16)
[2017-11-02] MEDS: Famotidine 20 MG TAB PO SCH (08:05)
[2017-11-02] MEDS: Labetalol 100 MG TAB PO SCH ×2 (08:05→20:15)
[2017-11-02] MEDS: Amlodipine 10 MG TAB PO SCH (08:05)
[2017-11-02] MEDS: Senokot S 8.6-50 MG TAB PO SCH ×2 (08:06→20:15)
[2017-11-02] MEDS: Polyethylene Glycol 3350 17 GM Packet PO SCH (08:06)
[2017-11-02] MEDS ORDERED: Fentanyl 100 MCG/2 ML VIAL ONE (08:32)
[2017-11-02] MEDS ORDERED: CEFAZOLIN/Water 2 GM/20 ML SYRINGE ONE (08:58)
[2017-11-02] MEDS ORDERED: CEFAZOLIN 2 GM in Sodium Chloride 0.9% 100 ML IVPB SCH (09:00)
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
--- NOTE | 2017-11-02 12:35 | RAD ---
CHEST 1 VIEW: COMPARISON: 10/29/17. HISTORY: Evaluate subclavian central venous catheter. FINDINGS: Portable semiupright chest radiograph demonstrates interval removal of a presumed Dobbhoff feeding tu be. Stable right-sided HemoSplit dialysis catheter. Redemonstration of a right-sided subclavian julián tral venous catheter with the distal tip projecting over the HemoSplit dialysis catheter. No pneumot horax. Parenchymal changes in the lung bases. Small right-sided pleural effusion is noted. Indeter minate, possibly acute lateral right 6th/7th rib fractures. IMPRESSION: 1. Right-sided central venous catheter with the distal tip obscured by the right-sided HemoSplit bhargav lysis catheter. Both catheters are presumed to be in the superior vena cava. There is no evidence o f pneumothorax. 2. Pleural and parenchymal changes in the right lung base. Parenchymal changes of the left lung bas e. 3. Right rib fractures are noted. 4. If there is concern for possible arterial location of the subclavian catheter, consider obtaining arterial blood gas. POS: RUPERT
[2017-11-02] MEDS ORDERED: Lorazepam 0.5 MG TAB PO PRN (14:23)
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
[2017-11-03] MEDS: Acetaminophen 500 MG TAB PO SCH ×4 (01:10→18:02)
[2017-11-03 06:01] LABS: Albumin 2.6 g/dL (3.4-4.8); Anion Gap 15 mmol/L (10-20); BUN (Urea Nitrogen) 49 mg/dL (9.8-20.1); BUN/Creatinine Ratio 7.85; Calc. Creatinine Clearance 14 mL/min (70-130); Calcium 7.9 mg/dL (7.8-10.44); Carbon Dioxide 28 mmol/L (23-31); Chloride 97 mmol/L (98-107); Estimated GFR-MDRD 8; Glucose 103 mg/dL (80-115); Phosphorus 7.4 mg/dL (2.3-4.7); Potassium 4.6 mmol/L (3.5-5.1); Sodium 135 mmol/L (136-145)
[2017-11-03] MEDS: Labetalol 100 MG TAB PO SCH ×2 (12:50→20:36)
[2017-11-03] MEDS: Amlodipine 10 MG TAB PO SCH (12:50)
[2017-11-03] MEDS: Senokot S 8.6-50 MG TAB PO SCH ×2 (12:51→20:36)
[2017-11-03] MEDS: Polyethylene Glycol 3350 17 GM Packet PO SCH (12:51)
[2017-11-03] MEDS: Famotidine 20 MG TAB PO SCH (12:51)
[2017-11-03] MEDS: Heparin 5,000 UNITS/ML VIAL SC SCH ×2 (12:52→20:36)
[2017-11-03] MEDS ORDERED: Lorazepam 2 MG/ML VIAL SLOW IVP SCH (15:15)
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
[2017-11-04] MEDS: Acetaminophen 500 MG TAB PO SCH ×4 (00:35→19:09)
[2017-11-04 06:12] LABS: Albumin 2.8 g/dL (3.4-4.8); Anion Gap 14 mmol/L (10-20); BUN (Urea Nitrogen) 43 mg/dL (9.8-20.1); BUN/Creatinine Ratio 7.73; Calc. Creatinine Clearance 14 mL/min (70-130); Calcium 8.4 mg/dL (7.8-10.44); Carbon Dioxide 26 mmol/L (23-31); Chloride 98 mmol/L (98-107); Estimated GFR-MDRD 9; Glucose 99 mg/dL (80-115); Magnesium 1.9 mg/dL (1.6-2.6); Phosphorus 7.3 mg/dL (2.3-4.7); Potassium 4.7 mmol/L (3.5-5.1); Sodium 133 mmol/L (136-145)
[2017-11-04 06:51] LABS: #Basophils 0.1 thou/uL (0.0-0.2); #Eosinphils 0.2 thou/uL (0.0-0.7); #Lymphocytes 1.7 thou/uL (1.20-3.40); #Monocytes 1.2 thou/uL (0.11-0.59); #Neutrophils 9.3 thou/uL (1.40-6.50); %Basophils 0.6 % (0.0-1.0); %Eosinophils 1.4 % (0.0-10.0); %Lymphocytes 13.5 % (21.0-51.0); %Monocytes 9.6 % (0.0-10.0); Hemoglobin 7.9 g/dL (12.0-16.0); Mean Corpuscular HGB CONC 33.7 g/dL (32.0-36.0); Mean Corpuscular Hemoglobin 32.4 pg (27.0-31.0); Mean Corpuscular Volume 96.2 fl (81.0-99.0); Mean Platelet Volume 7.1 fL (7.4-10.4); Platelet Count 403 thou/uL (130-400); RBC Distribution Width 13.7 % (11.5-14.5); Red Blood Cell (RBC) Count 2.45 mill/uL (4.20-5.40); White Blood Cell (WBC) Count 12.3 thou/uL (4.8-10.8)
[2017-11-04] MEDS: Famotidine 20 MG TAB PO SCH (09:26)
[2017-11-04] MEDS: Senokot S 8.6-50 MG TAB PO SCH ×2 (09:26→21:08)
[2017-11-04] MEDS: Amlodipine 10 MG TAB PO SCH (09:26)
[2017-11-04] MEDS: Polyethylene Glycol 3350 17 GM Packet PO SCH (09:26)
[2017-11-04] MEDS: Labetalol 100 MG TAB PO SCH ×2 (09:26→19:07)
[2017-11-04] MEDS: Heparin 5,000 UNITS/ML VIAL SC SCH ×2 (09:27→19:07)
[2017-11-04] MEDS ORDERED: CEFAZOLIN/Water 2 GM/20 ML SYRINGE SLOW IVP SCH (09:30)
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
--- NOTE | 2017-11-04 19:55 | PRG ---
DATE OF SERVICE: 11/04/2017 Shelby Dias is planning to have her left shoulder repaired next week. Her renal function is not im proving. I have discussed with Dr. Herrera. Plan is to place a right arm fistula. I have discus sed with the patient and the family, they agree. We will plan this tomorrow under regional anesthesi a sedation.
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
[2017-11-05] MEDS: Acetaminophen 500 MG TAB PO SCH ×5 (00:20→23:11)
[2017-11-05] MEDS: Labetalol 100 MG TAB PO SCH ×2 (06:26→23:02)
[2017-11-05] MEDS: Calcium Acetate 667 MG CAP PO SCH ×3 (08:00→19:00)
[2017-11-05] MEDS ORDERED: Heparin 10,000 UNITS/ 10 ML VIAL ONE ×3 (08:01→10:55)
[2017-11-05] MEDS ORDERED: CEFAZOLIN/Water 2 GM/20 ML SYRINGE ONE (08:55)
[2017-11-05] MEDS: Heparin 5,000 UNITS/ML VIAL SC SCH ×3 (09:00→23:03)
[2017-11-05] MEDS: Senokot S 8.6-50 MG TAB PO SCH ×2 (09:00→23:14)
[2017-11-05] MEDS: Polyethylene Glycol 3350 17 GM Packet PO SCH (09:00)
[2017-11-05] MEDS ORDERED: Fentanyl 100 MCG/2 ML VIAL ONE ×2 (09:01→09:14)
[2017-11-05] MEDS ORDERED: Midazolam HCl 2 mg/2 ml Vial ONE ×2 (09:01→09:14)
[2017-11-05] MEDS ORDERED: Heparin 5,000 UNITS/ML VIAL ONE (09:07)
[2017-11-05] MEDS ORDERED: Protamine Sulfate 50 MG/5 ML VIAL ONE (09:07)
[2017-11-05] MEDS ORDERED: Lidocaine 2% 10 ML INJ ONE (09:12)
[2017-11-05] MEDS ORDERED: Bupivacaine HCl 0.5%/Epinephrine 1:200,000/PF 30 ml Vial ONE ×2 (09:12→10:58)
[2017-11-05] MEDS ORDERED: Propofol 500 MG/50 ML VIAL ONE (09:14)
--- NOTE | 2017-11-05 10:46 | OP ---
DATE OF PROCEDURE: 11/05/2017 PREOPERATIVE DIAGNOSES: End-stage renal disease, left humeral fracture. POSTOPERATIVE DIAGNOSES: End-stage renal disease, left humeral fracture. PROCEDURE: Right arm primary fistula, perforating branch antecubital vein to proximal radial artery outflow primarily for anatomic considerations. Cephalic vein upper arm, 4 mm coronary dilator calibr ated. Secondary outflow basilic vein, retrograde antecubital vein preserved. SURGEON: Dr. Bhavik Cormier ANESTHESIA: Regional, TIVA. PROCEDURE IN DETAIL: The patient was taken to the operating room where under regional anesthesia and intravenous sedation, right upper extremity was prepped with ChloraPrep, draped in routine fashion. Incision made longitudinally in the proximal volar forearm just beneath the antecubital fossa and ca rried down the subcutaneous tissue, antecubital vein perforating branch antecubital vein dissected fr ee. There was an excellent sized cephalic vein upper arm. The perforating branch antecubital vein w as in direct communication of the cephalic vein upper arm with the communicating branch basilic vein originating more distally. Perforating branch dissected free and deep branches divided between clips , spatulated and interrogated with coronary dilators, passing coronary dilators from a 2 mm to a 4 mm coronary dilator out the cephalic vein outflow upper arm without restriction. Brachial, ulnar and r adial arteries dissected free. There was excellent quality. The patient was given 6000 units hepari n intravenously. After adequate circulation time, the brachial, ulnar, and radial arteries clamped w ith atraumatic vascular clamps. Longitudinal arteriotomy made sharply and elongated with Galicia sciss ors. Proximal radial artery which was of good caliber and condition without significant arterioscler otic disease. Perforating branch antecubital vein appropriately spatulated along its length for an e nd vein to side proximal radial anastomosis, using continuous suture of 6-0 Prolene once completion a nastomosis was performed, vascular clamps released. There was excellent flow in the fistula interrog ated by the cephalic vein outflow upper arm. Good hemostasis noted. The patient given 25 mg protami ne anesthesia by Anesthesia. Subcutaneous tissues approximated with 3-0 Monocryl, skin with subderma l 4-0 Monocryl and DermaGlue applied.
[2017-11-05] MEDS ORDERED: PROPOFOL 200 MG/20 ML VIAL ONE (10:55)
[2017-11-05] MEDS ORDERED: Heparin 1,000 UNITS/ML VIAL ONE (11:11)
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
[2017-11-05] MEDS ORDERED: NIFEdipine XL 60 MG TAB PO SCH (12:45)
[2017-11-05] MEDS: Famotidine 20 MG TAB PO SCH (13:11)
[2017-11-05] MEDS: Labetalol HCl 100 MG/20 ML VIAL SLOW IVP PRN (13:16)
[2017-11-05] MEDS: Amlodipine 10 MG TAB PO SCH (13:42)
[2017-11-05] MEDS: Epoetin (ESRD) 20,000 UNITS/ML IVP SCH (16:08)
[2017-11-05] MEDS ORDERED: hydrALAZINE 20 MG/ML VIAL SLOW IVP PRN (16:16)
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
--- NOTE | 2017-11-05 21:24 | CT ---
CT OF THE BRAIN WITHOUT CONTRAST: 11/05/17 INDICATION: Unable to move right arm. COMPARISON: Prior CT of the brain dated 10/31/17. FINDINGS: The lacunar infarction involving the bifrontal white matter are slightly less prominent than seen on the most recent comparison. No new acute infarct, hemorrhage, or hydrocephalus is grossly present. Se ptum pellucidum and third ventricle are midline. Mastoid air cells are clear. Skull is intact. IMPRESSION: Bifrontal subcortical white matter infarcts are less evident than on the comparison examination of 10/31/17. Followup MR of the brain may be helpful for improved characterization. No interval acute change is evident. POS: [facility]
[2017-11-06 06:25] LABS: Anion Gap 17 mmol/L (10-20); BUN (Urea Nitrogen) 40 mg/dL (9.8-20.1); Calc. Creatinine Clearance 0 mL/min (70-130); Calcium 8.4 mg/dL (7.8-10.44); Carbon Dioxide 23 mmol/L (23-31); Chloride 96 mmol/L (98-107); Estimated GFR-MDRD 10; Glucose 183 mg/dL (80-115); Magnesium 1.8 mg/dL (1.6-2.6); Phosphorus 6.1 mg/dL (2.3-4.7); Potassium 4.7 mmol/L (3.5-5.1); Sodium 131 mmol/L (136-145)
[2017-11-06 08:18] LABS: #Basophils 0.1 thou/uL (0.0-0.2); #Eosinphils 0.2 thou/uL (0.0-0.7); #Lymphocytes 1.1 thou/uL (1.20-3.40); #Monocytes 1.1 thou/uL (0.11-0.59); #Neutrophils 10.5 thou/uL (1.40-6.50); %Basophils 0.5 % (0.0-1.0); %Eosinophils 1.5 % (0.0-10.0); %Lymphocytes 8.2 % (21.0-51.0); %Monocytes 8.8 % (0.0-10.0); Hemoglobin 7.6 g/dL (12.0-16.0); Mean Corpuscular Hemoglobin 31.4 pg (27.0-31.0); Mean Corpuscular Volume 95.3 fl (81.0-99.0); Mean Platelet Volume 7.8 fL (7.4-10.4); Platelet Count 345 thou/uL (130-400); RBC Distribution Width 13.5 % (11.5-14.5); Red Blood Cell (RBC) Count 2.41 mill/uL (4.20-5.40); White Blood Cell (WBC) Count 12.9 thou/uL (4.8-10.8)
[2017-11-06] MEDS ORDERED: NIFEdipine XL 60 MG TAB PO SCH (09:00)
[2017-11-06] MEDS: Calcium Acetate 667 MG CAP PO SCH ×3 (09:02→17:30)
[2017-11-06] MEDS: Famotidine 20 MG TAB PO SCH (09:03)
[2017-11-06] MEDS: Labetalol 100 MG TAB PO SCH ×2 (09:03→20:30)
[2017-11-06] MEDS: Acetaminophen 500 MG TAB PO SCH ×4 (09:04→23:02)
[2017-11-06] MEDS: Heparin 5,000 UNITS/ML VIAL SC SCH ×3 (09:04→20:30)
[2017-11-06] MEDS: Polyethylene Glycol 3350 17 GM Packet PO SCH (10:52)
[2017-11-06] MEDS: Senokot S 8.6-50 MG TAB PO SCH ×2 (10:52→20:30)
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
[2017-11-06] MEDS: cloNIDine 0.2mg/24 Hour PATCH TD SCH (17:30)
[2017-11-06] MEDS: NIFEdipine 10 MG CAP PO SCH (20:31)
[2017-11-07] MEDS: Acetaminophen 500 MG TAB PO SCH ×4 (00:13→17:52)
[2017-11-07] MEDS: Labetalol 100 MG TAB PO SCH ×2 (08:34→21:04)
[2017-11-07] MEDS: Polyethylene Glycol 3350 17 GM Packet PO SCH (08:34)
[2017-11-07] MEDS: Calcium Acetate 667 MG CAP PO SCH ×3 (08:34→16:01)
[2017-11-07] MEDS: Heparin 5,000 UNITS/ML VIAL SC SCH ×3 (08:35→21:04)
[2017-11-07] MEDS: Senokot S 8.6-50 MG TAB PO SCH ×2 (08:35→21:04)
[2017-11-07] MEDS: Famotidine 20 MG TAB PO SCH (08:35)
[2017-11-07] MEDS: NIFEdipine 10 MG CAP PO SCH ×2 (09:58→21:05)
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
[2017-11-08] MEDS: Acetaminophen 500 MG TAB PO SCH ×6 (00:23→23:56)
[2017-11-08 06:46] LABS: #Eosinphils 0.2 thou/uL (0.0-0.7); #Lymphocytes 1.8 thou/uL (1.20-3.40); #Neutrophils 4.8 thou/uL (1.40-6.50); %Basophils 0.5 % (0.0-1.0); %Eosinophils 2.9 % (0.0-10.0); %Lymphocytes 22.7 % (21.0-51.0); %Monocytes 12.8 % (0.0-10.0); %Neutrophils 61.1 % (42.0-75.0); Hemoglobin 7.2 g/dL (12.0-16.0); Mean Corpuscular HGB CONC 33.5 g/dL (32.0-36.0); Mean Corpuscular Hemoglobin 32.2 pg (27.0-31.0); Mean Corpuscular Volume 96.1 fl (81.0-99.0); Mean Platelet Volume 7.1 fL (7.4-10.4); Platelet Count 511 thou/uL (130-400); RBC Distribution Width 13.2 % (11.5-14.5); Red Blood Cell (RBC) Count 2.25 mill/uL (4.20-5.40); White Blood Cell (WBC) Count 7.9 thou/uL (4.8-10.8)
[2017-11-08 07:08] LABS: Albumin 2.9 g/dL (3.4-4.8); Anion Gap 19 mmol/L (10-20); BUN (Urea Nitrogen) 66 mg/dL (9.8-20.1); BUN/Creatinine Ratio 8.45; Calc. Creatinine Clearance 11 mL/min (70-130); Calcium 8.5 mg/dL (7.8-10.44); Carbon Dioxide 18 mmol/L (23-31); Chloride 94 mmol/L (98-107); Estimated GFR-MDRD 6; Glucose 83 mg/dL (80-115); Potassium 5.3 mmol/L (3.5-5.1); Sodium 126 mmol/L (136-145)
[2017-11-08 07:13] LABS: Phosphorus 9.2 mg/dL (2.3-4.7)
[2017-11-08] MEDS ORDERED: Furosemide 100 MG/10 ML VIAL SLOW IVP SCH (08:15)
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
[2017-11-08] MEDS: Epoetin (ESRD) 20,000 UNITS/ML IVP SCH (11:32)
[2017-11-08] MEDS: Calcium Acetate 667 MG CAP PO SCH ×3 (11:32→17:36)
[2017-11-08] MEDS: Calcitriol 0.25 MCG CAP PO SCH (11:32)
[2017-11-08] MEDS: Heparin 5,000 UNITS/ML VIAL SC SCH ×2 (11:33→23:43)
[2017-11-08] MEDS: Famotidine 20 MG TAB PO SCH (11:33)
[2017-11-08] MEDS: Senokot S 8.6-50 MG TAB PO SCH ×2 (11:34→23:42)
[2017-11-08] MEDS: Polyethylene Glycol 3350 17 GM Packet PO SCH (11:34)
[2017-11-08] MEDS: NIFEdipine 10 MG CAP PO SCH ×2 (11:34→23:55)
[2017-11-08] MEDS: Labetalol 100 MG TAB PO SCH ×2 (11:37→23:54)
[2017-11-08 13:14] LABS: Anion Gap 22 mmol/L (10-20); BUN (Urea Nitrogen) 69 mg/dL (9.8-20.1); Calc. Creatinine Clearance 10 mL/min (70-130); Calcium 8.6 mg/dL (7.8-10.44); Carbon Dioxide 18 mmol/L (23-31); Chloride 94 mmol/L (98-107); Estimated GFR-MDRD 6; Glucose 82 mg/dL (80-115); Potassium 5.7 mmol/L (3.5-5.1); Sodium 128 mmol/L (136-145)
[2017-11-08] MEDS: Sevelamer Carbonate 800 MG TAB PO SCH ×2 (14:15→17:34)
[2017-11-08] MEDS ORDERED: Heparin 10,000 UNITS/ 10 ML VIAL ONE (16:01)
[2017-11-08] MEDS ORDERED: Lidocaine 1% (PF) 30 ML VIAL ONE (16:54)
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
[2017-11-08] MEDS ORDERED: Lidocaine 1% w/Epinephrine 1:100K 20 ML VIAL ONE (21:16)
--- NOTE | 2017-11-09 01:00 | PRG ---
DATE OF SERVICE: 11/08/2017 SUBJECTIVE: The patient pulled out her dialysis catheter in the need of hemodialysis, in need of ree stablishment of access. The patient was noted with following vital signs. PHYSICAL EXAMINATION: VITAL SIGNS: Afebrile with temperature 98.4, pulse 85, blood pressure 153/66, respiratory rate of 20 , O2 sat 100%. HEENT: Unremarkable with moist oral mucosa. NECK: Supple. No conjunctival injection or icterus. CARDIOVASCULAR: First and second heart sounds were heard. RESPIRATORY: Clear to auscultation. DIGESTIVE: Revealed benign abdomen with positive bowel sounds. EXTREMITIES: No peripheral edema. SKIN: No new gross rash. LYMPHATICS: No peripheral lymphadenopathy. LABORATORY INVESTIGATION: Showed hemoglobin of 7.2, platelet 511,000 and chemistry showed a potassiu m of 5.7, BUN of 69, creatinine 8.26 with sodium 128. PTH 450. Phosphorus 9.2. IMPRESSION: 1. Acute on chronic kidney disease, more or less hemodialysis dependent. 2. Severe hyperphosphatemia. 3. Hyperkalemia. 4. Metabolic acidosis. 5. Hyponatremia. PLAN: 1. The patient will need reestablishment of a dialysis access in order to be able to dialyze this pa tient. 2. Patient will need to be restrained. 3. This patient likely to require blood transfusion, but for now, we will continue with erythropoies is-stimulating agent. 4. Further management to be dependent on the clinical course. Hopefully, in the next couple of days , patient will have a tunneled-dialysis catheter replaced, so dispo planning will continue. 5. change management manager consults for outpatient dialysis placement.
--- NOTE | 2017-11-09 05:05 | OP ---
PROCEDURE: Dialysis catheter placement. INDICATION: Renal failure. MEDICATION: 1% lidocaine. COMPLICATIONS: None. DETAILS OF PROCEDURE: After informed consent was obtained, the patient was prepped and draped in a s terile fashion. The left femoral vein was approached in layers under real time ultrasound guidance. After serial dilatation, a serial Trialysis catheter was placed and the patient tolerated the proced ure very well with no immediate postop complications.
[2017-11-09 06:05] LABS: #Eosinphils 0.2 thou/uL (0.0-0.7); #Lymphocytes 1.1 thou/uL (1.20-3.40); #Monocytes 0.9 thou/uL (0.11-0.59); #Neutrophils 4.2 thou/uL (1.40-6.50); %Basophils 0.4 % (0.0-1.0); %Eosinophils 2.5 % (0.0-10.0); %Lymphocytes 17.2 % (21.0-51.0); Albumin 2.8 g/dL (3.4-4.8); Anion Gap 20 mmol/L (10-20); BUN (Urea Nitrogen) 76 mg/dL (9.8-20.1); BUN/Creatinine Ratio 8.88; Calc. Creatinine Clearance 9 mL/min (70-130); Calcium 8.4 mg/dL (7.8-10.44); Carbon Dioxide 18 mmol/L (23-31); Chloride 96 mmol/L (98-107); Estimated GFR-MDRD 6; Glucose 88 mg/dL (80-115); Hemoglobin 6.6 g/dL (12.0-16.0); Mean Corpuscular HGB CONC 33.2 g/dL (32.0-36.0); Mean Corpuscular Hemoglobin 31.3 pg (27.0-31.0); Mean Corpuscular Volume 94.3 fl (81.0-99.0); Mean Platelet Volume 6.8 fL (7.4-10.4); Platelet Count 517 thou/uL (130-400); Potassium 5.8 mmol/L (3.5-5.1); RBC Distribution Width 13.5 % (11.5-14.5); Sodium 128 mmol/L (136-145); White Blood Cell (WBC) Count 6.4 thou/uL (4.8-10.8)
[2017-11-09 06:20] LABS: Phosphorus 10.1 mg/dL (2.3-4.7)
[2017-11-09] MEDS: Acetaminophen 500 MG TAB PO SCH ×3 (07:54→18:26)
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
[2017-11-09] MEDS: Calcium Acetate 667 MG CAP PO SCH ×3 (14:23→18:26)
[2017-11-09] MEDS: Senokot S 8.6-50 MG TAB PO SCH ×2 (14:24→20:06)
[2017-11-09] MEDS: Sevelamer Carbonate 800 MG TAB PO SCH ×5 (14:24→18:26)
[2017-11-09] MEDS: Labetalol 100 MG TAB PO SCH ×2 (18:13→20:07)
[2017-11-09] MEDS: Famotidine 20 MG TAB PO SCH (18:13)
[2017-11-09] MEDS: Heparin 5,000 UNITS/ML VIAL SC SCH ×2 (18:13→20:16)
[2017-11-09] MEDS: Polyethylene Glycol 3350 17 GM Packet PO SCH (18:14)
[2017-11-09] MEDS: NIFEdipine 10 MG CAP PO SCH ×2 (18:14→20:09)
[2017-11-09] MEDS: Calcitriol 0.25 MCG CAP PO SCH (18:26)
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
[2017-11-10] MEDS: Acetaminophen 500 MG TAB PO SCH ×3 (01:01→11:10)
[2017-11-10 06:07] LABS: Albumin 2.8 g/dL (3.4-4.8); Anion Gap 18 mmol/L (10-20); BUN (Urea Nitrogen) 55 mg/dL (9.8-20.1); BUN/Creatinine Ratio 8.16; Calc. Creatinine Clearance 12 mL/min (70-130); Calcium 8.2 mg/dL (7.8-10.44); Carbon Dioxide 19 mmol/L (23-31); Chloride 96 mmol/L (98-107); Estimated GFR-MDRD 7; Glucose 101 mg/dL (80-115); Phosphorus 6.8 mg/dL (2.3-4.7); Potassium 5.2 mmol/L (3.5-5.1); Sodium 128 mmol/L (136-145)
[2017-11-10 08:15] LABS: Band 4 % (5-11); Eosinophils 2 % (0-10); Hemoglobin 7.8 g/dL (12.0-16.0); Lymphocytes 11 % (21-51); MDiff Complete? YES; Mean Corpuscular HGB CONC 32.1 g/dL (32.0-36.0); Mean Corpuscular Hemoglobin 30.4 pg (27.0-31.0); Mean Corpuscular Volume 94.5 fl (81.0-99.0); Mean Platelet Volume 7.5 fL (7.4-10.4); Monocytes 15 % (0-10); Neutrophil 68 % (42-75); PLT Morphology Comment Appears Adequate; Platelet Count 330 thou/uL (130-400); Polychromasia SLIGHT = 2-3 cells (100X) (0-2/hpf); RBC Distribution Width 13.4 % (11.5-14.5); Red Blood Cell (RBC) Count 2.56 mill/uL (4.20-5.40); White Blood Cell (WBC) Count 7.9 thou/uL (4.8-10.8)
--- NOTE | 2017-11-10 08:28 | PRG ---
DATE OF SERVICE: 11/09/2017 SUBJECTIVE: The patient was seen and examined with no new complaints, seems to be much improved. OBJECTIVE: HEENT: Unremarkable. Moist oral mucosa. No conjunctival injection or icterus. CARDIOVASCULAR SYSTEM: First and second heart sounds were heard. RESPIRATORY SYSTEM: Clear to auscultation
[2017-11-10] MEDS: Calcium Acetate 667 MG CAP PO SCH ×3 (08:29→18:33)
[2017-11-10] MEDS: Famotidine 20 MG TAB PO SCH (08:30)
[2017-11-10] MEDS: Sevelamer Carbonate 800 MG TAB PO SCH ×3 (08:30→18:33)
[2017-11-10] MEDS: Calcitriol 0.25 MCG CAP PO SCH (08:30)
[2017-11-10] MEDS: Labetalol 100 MG TAB PO SCH ×2 (08:30→21:26)
[2017-11-10] MEDS: Heparin 5,000 UNITS/ML VIAL SC SCH ×2 (08:31→21:26)
[2017-11-10] MEDS: Polyethylene Glycol 3350 17 GM Packet PO SCH (08:32)
[2017-11-10] MEDS: Senokot S 8.6-50 MG TAB PO SCH ×2 (08:32→21:26)
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
[2017-11-10] MEDS ORDERED: CEFAZOLIN/Water 2 GM/20 ML SYRINGE SLOW IVP SCH (10:45)
[2017-11-10] MEDS: NIFEdipine 10 MG CAP PO SCH ×2 (11:05→21:25)
[2017-11-10] MEDS: Epoetin (ESRD) 10,000 UNITS/ML VIAL SC SCH (11:11)
[2017-11-10] MEDS ORDERED: Fentanyl 100 MCG/2 ML VIAL ONE (13:46)
[2017-11-10] MEDS ORDERED: Propofol 500 MG/50 ML VIAL ONE (13:46)
[2017-11-10] MEDS ORDERED: Bupivacaine HCl 0.5%/Epinephrine 1:200,000/PF 30 ml Vial ONE (13:50)
[2017-11-10] MEDS ORDERED: Sodium Chloride 0.9% 0 ML ONE (13:50)
[2017-11-10] MEDS ORDERED: Lidocaine 2% 10 ML INJ ONE (13:50)
[2017-11-10] MEDS ORDERED: Heparin 10,000 UNITS/1 ML VIAL ONE (13:50)
[2017-11-10] MEDS ORDERED: CEFAZOLIN/Water 2 GM/20 ML SYRINGE ONE (14:19)
[2017-11-10] MEDS ORDERED: Promethazine HCl 25 MG/ML VIAL SLOW IVP PRN (14:54)
[2017-11-10] MEDS ORDERED: Ondansetron HCl/PF 4 MG/2 ML Vial IVP PRN (14:54)
[2017-11-10] MEDS ORDERED: Promethazine HCl 25 MG/ML VIAL IM PRN (14:54)
[2017-11-10] MEDS ORDERED: PHENYLEPHRINE-NS 100 MCG/ML 10 ML SYRINGE ONE (15:24)
[2017-11-10] MEDS ORDERED: PROPOFOL 200 MG/20 ML VIAL ONE (15:24)
--- NOTE | 2017-11-10 16:15 | RAD ---
AP VIEW OF THE CHEST: INDICATION: Central line placement. COMPARISON: Prior exam dated 11/02/17. FINDINGS: Right IJ dialysis catheter is unchanged. There is a new left IJ central venous catheter projecting i n the region of the right atrium. Lungs are clear. No pleural effusion or pneumothorax is evident. There is fragmentation involving the proximal left humerus that is stable to a comparison dated . IMPRESSION: 1. New left internal jugular central venous catheter projecting over the region of the right atrium. Stable right internal jugular dialysis catheter projecting over the region of the superior vena cav a. 2. Stable fragmentation of the left proximal humerus. POS: [facility]
--- NOTE | 2017-11-10 18:03 | OP ---
PREOPERATIVE DIAGNOSES: End-stage renal disease, confusion, poor intravenous access to large right i nternal jugular dialysis catheter. POSTOPERATIVE DIAGNOSES: End-stage renal disease, confusion, poor intravenous access to large right internal jugular dialysis catheter. PROCEDURES PERFORMED: Ultrasound fluoroscopy used to place a left IJ triple lumen catheter and a rig ht IJ hemodialysis catheter. SURGEON: Dr. Bhavik Cormier ANESTHESIA: TIVA. Local 0.5% Marcaine with epinephrine, 30 mL, mixed with 2% Xylocaine, 10 mL. PROCEDURE IN DETAIL: The patient was taken to the operating room under intravenous sedation supine p osition, neck and chest prepared with ChloraPrep, draped in routine fashion. Local anesthetic mixtur e infiltrated in the skin and subcutaneous tissue about the operative site. Using ultrasound guidanc e, the right and left internal jugular veins were cannulated with trocar catheter. J-wire threaded. Trocar catheter removed. Skin incised and enlarged sharply. On the left side, a triple lumen anabella ter placed using Seldinger technique removing the wire, securing the catheter with 3-0 nylon suture. Biopatch sterile dressing applied. Each port aspirated blood and flushed with saline solution. On the right side, stab incision made over the right chest. Using the tunneling device, precurved an giodynamics cuffed tunnel hemodialysis catheter tunneled between the two incisions, placing the fabri c cuff and the skin exit site. Catheter secured with 2 interrupted sutures of 3-0 nylon. Biopatch D ermabond applied. Smaller medium size dilators placed over the J-wire into the internal jugular vein removed. Dilator and pull-away sheath placed over the J-wire into the superior vena cava, removing the dilator and J-wire passing the catheter through a pull-away sheath, removing the pull-away sheath and fluoroscopically, both catheter noted to be in good position. Each port of the hemodialysis cat heter aspirated blood, flushed with saline solution, heparinized saline solution 1000 units heparin p er mL indicated volume of the port. Platysma approximated with 4-0 Monocryl, skin with subdermal 4-0 Monocryl. Dermal glue and sterile dressings applied.
[2017-11-10] MEDS: traMADol HCl 50 MG TAB PO PRN (18:32)
[2017-11-10] MEDS: Acetaminophen 1,000 MG in Premix Bag 1 BAG IVPB SCH (21:24)
--- NOTE | 2017-11-11 01:31 | PRG ---
DATE OF SERVICE: 11/10/2017 SUBJECTIVE: The patient was seen and examined with no new complaint. The patient has pulled out of dialysis access and was able to be dialyzed with temporary femoral dialysis catheter to address the h yperkalemia this patient was developing. OBJECTIVE: VITAL SIGNS: The patient was noted with the following vital signs: Afebrile with temperature 97.8, pulse 83, respiratory rate of 16, O2 saturation of 100% with blood pressure 119/54. HEENT: Unremarkable. Moist oral mucosa. No conjunctival icterus. NECK: Supple. CARDIOVASCULAR: First and second heart sounds were heard. RESPIRATORY: Clear to auscultation. DIGESTIVE: Revealed a benign abdomen with positive bowel sounds. EXTREMITIES: No peripheral edema. SKIN: No new gross rash. LYMPHATICS: No peripheral lymphadenopathy. IMPRESSION: 1. End-stage renal disease. Due for dialysis today; however, there is no access to initiate dialysi s in this patient. 2. We will continue to monitor with the welfare case worker, as he relates to outpatient dialysis facility. 3. Further management will be dependent on the clinical course.
[2017-11-11] MEDS: Acetaminophen 1,000 MG in Premix Bag 1 BAG IVPB SCH ×3 (02:09→14:54)
[2017-11-11 05:56] LABS: #Eosinphils 0.2 thou/uL (0.0-0.7); #Lymphocytes 1.6 thou/uL (1.20-3.40); #Monocytes 0.6 thou/uL (0.11-0.59); #Neutrophils 3.6 thou/uL (1.40-6.50); %Basophils 0.2 % (0.0-1.0); %Eosinophils 4.1 % (0.0-10.0); %Lymphocytes 26.5 % (21.0-51.0); %Monocytes 9.8 % (0.0-10.0); %Neutrophils 59.4 % (42.0-75.0); Mean Corpuscular HGB CONC 33.5 g/dL (32.0-36.0); Mean Corpuscular Hemoglobin 31.6 pg (27.0-31.0); Mean Corpuscular Volume 94.5 fl (81.0-99.0); Mean Platelet Volume 6.1 fL (7.4-10.4); Platelet Count 402 thou/uL (130-400); RBC Distribution Width 12.9 % (11.5-14.5)
[2017-11-11 06:10] LABS: Albumin 2.7 g/dL (3.4-4.8); Anion Gap 20 mmol/L (10-20); BUN (Urea Nitrogen) 62 mg/dL (9.8-20.1); BUN/Creatinine Ratio 8.28; Calc. Creatinine Clearance 0 mL/min (70-130); Calcium 8.5 mg/dL (7.8-10.44); Carbon Dioxide 19 mmol/L (23-31); Chloride 97 mmol/L (98-107); Estimated GFR-MDRD 7; Glucose 85 mg/dL (80-115); Phosphorus 7.8 mg/dL (2.3-4.7); Potassium 5.5 mmol/L (3.5-5.1); Sodium 130 mmol/L (136-145)
[2017-11-11] MEDS ORDERED: NIFEdipine 10 MG CAP PO SCH (08:00)
[2017-11-11] MEDS ORDERED: Heparin 1,000 UNITS/ML VIAL ONE (11:11)
[2017-11-11] MEDS: Labetalol 100 MG TAB PO SCH ×3 (11:40→20:28)
[2017-11-11] MEDS: Calcium Acetate 667 MG CAP PO SCH ×3 (11:50→17:38)
[2017-11-11] MEDS: Sevelamer Carbonate 800 MG TAB PO SCH ×3 (11:50→17:39)
[2017-11-11] MEDS: Senokot S 8.6-50 MG TAB PO SCH ×2 (11:51→20:31)
[2017-11-11] MEDS: Polyethylene Glycol 3350 17 GM Packet PO SCH (11:51)
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
[2017-11-11] MEDS: Heparin 5,000 UNITS/ML VIAL SC SCH ×2 (13:43→20:31)
[2017-11-11] MEDS: Famotidine 20 MG TAB PO SCH (13:43)
[2017-11-11] MEDS: Calcitriol 0.25 MCG CAP PO SCH (13:44)
[2017-11-11] MEDS: NIFEdipine 10 MG CAP PO SCH ×2 (14:40→21:44)
[2017-11-11] MEDS: Ferrous Sulfate 325 MG TAB PO SCH (17:39)
[2017-11-11] MEDS: traMADol HCl 50 MG TAB PO PRN (20:29)
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
[2017-11-12 06:37] LABS: Anion Gap 14 mmol/L (10-20); BUN (Urea Nitrogen) 33 mg/dL (9.8-20.1); Calc. Creatinine Clearance 16 mL/min (70-130); Calcium 8.8 mg/dL (7.8-10.44); Carbon Dioxide 25 mmol/L (23-31); Chloride 98 mmol/L (98-107); Estimated GFR-MDRD 11; Glucose 85 mg/dL (80-115); Potassium 4.4 mmol/L (3.5-5.1); Sodium 133 mmol/L (136-145)
[2017-11-12] MEDS: Sevelamer Carbonate 800 MG TAB PO SCH ×3 (07:43→17:49)
[2017-11-12] MEDS: Famotidine 20 MG TAB PO SCH (07:43)
[2017-11-12] MEDS: Heparin 5,000 UNITS/ML VIAL SC SCH ×2 (07:43→21:33)
[2017-11-12] MEDS: Calcitriol 0.25 MCG CAP PO SCH (07:43)
[2017-11-12] MEDS: NIFEdipine 10 MG CAP PO SCH (07:44)
[2017-11-12] MEDS: Ferrous Sulfate 325 MG TAB PO SCH ×2 (07:44→17:49)
[2017-11-12] MEDS: Labetalol 100 MG TAB PO SCH ×2 (07:44→21:34)
[2017-11-12] MEDS: Calcium Acetate 667 MG CAP PO SCH ×3 (07:45→17:49)
[2017-11-12] MEDS: Senokot S 8.6-50 MG TAB PO SCH ×2 (10:06→21:34)
[2017-11-12] MEDS: Polyethylene Glycol 3350 17 GM Packet PO SCH (10:07)
--- NOTE | 2017-11-12 10:43 | PDOC.PN ---
- Subjective Encounter Start Date: 11/12/17 Encounter Start Time: 10:42 Patient seen and examined, no new issues or complaints. No family at bedside. - Objective Vital Signs & Weight: Vital Signs (12 hours) Temp Pulse Resp BP BP Pulse Ox 11/12/17 08:00 98.1 F 82 18 159/66 H 97 11/12/17 07:45 98.1 F 82 18 97 11/12/17 07:44 81 159/66 H 11/12/17 03:52 100.0 F H 81 16 144/62 H 98 11/11/17 23:42 98.5 F 82 16 150/70 H 100 Weight Admit Weight 213 lb 8 oz Weight 192 lb 10.944 oz Most Recent Monitor Data Heart Rate from ECG 87 NIBP 164/65 Respiration from ECG 16 I&O: 11/11/17 11/12/17 11/13/17 06:59 06:59 06:59 Intake Total 440 1500 Output Total 250 Balance 190 1500 Result Diagrams: 11/11/17 05:45 11/12/17 06:08 Additional Labs: Accuchecks 11/12/17 11/11/17 11/11/17 06:10 23:43 20:47 POC Glucose 86 91 61 L 11/11/17 11/11/17 19:19 17:14 POC Glucose 83 69 L Phys Exam - Physical Examination Constitutional: NAD HEENT: PERRLA, moist MMs, sclera anicteric Neck: no nodes, no JVD, supple, full ROM Respiratory: no wheezing, no rales, no rhonchi Cardiovascular: RRR, no significant murmur, no rub Gastrointestinal: soft, non-tender, no distention, positive bowel sounds Musculoskeletal: no edema, pulses present RLE in brace Neurological: non-focal, normal sensation Skin: no rash, normal turgor Dx/Plan (1) Hypertension Code(s): I10 - ESSENTIAL (PRIMARY) HYPERTENSION Status: Acute (2) Renal failure Status: Acute (3) Trauma Code(s): T14.90XA - INJURY, UNSPECIFIED, INITIAL ENCOUNTER Status: Acute (4) Leukocytosis Code(s): D72.829 - ELEVATED WHITE BLOOD CELL COUNT, UNSPECIFIED Status: Acute (5) Hyperphosphatemia Code(s): E83.39 - OTHER DISORDERS OF PHOSPHORUS METABOLISM Status: Acute (6) Secondary hyperparathyroidism (of renal origin) Code(s): N25.81 - SECONDARY HYPERPARATHYROIDISM OF RENAL ORIGIN Status: Acute - Plan * BP in acceptable range for now, target SBP 130-150mmHg, pain will also be a contributing factor as well as general agitation * UF via HD will also allow to help with reduction in BP, will adjust medications to target pre-HD SBP 140-160mmHg for now * no other changes in plan * will follow and make adjustments as appropriat for BP from a medical perspective.
[2017-11-12] MEDS: traMADol HCl 50 MG TAB PO PRN (15:50)
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
[2017-11-13] MEDS: NIFEdipine 10 MG CAP PO SCH ×3 (03:37→21:23)
[2017-11-13] MEDS: traMADol HCl 50 MG TAB PO PRN (03:58)
[2017-11-13 05:23] LABS: #Eosinphils 0.2 thou/uL (0.0-0.7); #Lymphocytes 1.8 thou/uL (1.20-3.40); #Monocytes 0.7 thou/uL (0.11-0.59); #Neutrophils 3.5 thou/uL (1.40-6.50); %Basophils 0.3 % (0.0-1.0); %Eosinophils 3.6 % (0.0-10.0); %Lymphocytes 28.1 % (21.0-51.0); %Monocytes 11.8 % (0.0-10.0); %Neutrophils 56.3 % (42.0-75.0); Hemoglobin 8.7 g/dL (12.0-16.0); Mean Corpuscular HGB CONC 33.4 g/dL (32.0-36.0); Mean Corpuscular Hemoglobin 30.9 pg (27.0-31.0); Mean Corpuscular Volume 92.4 fl (81.0-99.0); Mean Platelet Volume 6.1 fL (7.4-10.4); Platelet Count 362 thou/uL (130-400); RBC Distribution Width 13.4 % (11.5-14.5); Red Blood Cell (RBC) Count 2.82 mill/uL (4.20-5.40); White Blood Cell (WBC) Count 6.2 thou/uL (4.8-10.8)
[2017-11-13 05:44] LABS: Anion Gap 13 mmol/L (10-20); BUN (Urea Nitrogen) 40 mg/dL (9.8-20.1); Calc. Creatinine Clearance 13 mL/min (70-130); Calcium 9.1 mg/dL (7.8-10.44); Carbon Dioxide 25 mmol/L (23-31); Chloride 97 mmol/L (98-107); Estimated GFR-MDRD 8; Glucose 87 mg/dL (80-115); Magnesium 1.8 mg/dL (1.6-2.6); Potassium 4.4 mmol/L (3.5-5.1); Sodium 131 mmol/L (136-145)
[2017-11-13] MEDS ORDERED: Heparin 10,000 UNITS/ 10 ML VIAL ONE (09:00)
[2017-11-13] MEDS: Calcium Acetate 667 MG CAP PO SCH ×3 (12:32→17:24)
[2017-11-13] MEDS: Famotidine 20 MG TAB PO SCH (12:32)
[2017-11-13] MEDS: Sevelamer Carbonate 800 MG TAB PO SCH ×3 (12:32→17:24)
[2017-11-13] MEDS: Ferrous Sulfate 325 MG TAB PO SCH ×2 (12:33→17:24)
[2017-11-13] MEDS: Calcitriol 0.25 MCG CAP PO SCH (12:33)
[2017-11-13] MEDS: Heparin 5,000 UNITS/ML VIAL SC SCH ×2 (12:33→21:23)
[2017-11-13] MEDS: Labetalol 100 MG TAB PO SCH ×2 (12:34→21:21)
[2017-11-13] MEDS: Senokot S 8.6-50 MG TAB PO SCH ×2 (12:37→21:22)
[2017-11-13] MEDS: Polyethylene Glycol 3350 17 GM Packet PO SCH (12:37)
--- NOTE | 2017-11-13 13:57 | PDOC.PN ---
- Subjective Encounter Start Date: 11/13/17 Encounter Start Time: 13:56 Patinet seen and examined, no new issues, all questions answered. - Objective Vital Signs & Weight: Vital Signs (12 hours) Temp Pulse Resp BP BP BP Pulse Ox 11/13/17 12:44 98.3 F 77 14 127/42 L 100 11/13/17 12:34 98.2 F 67 18 127/44 L 100 11/13/17 02:58 98.2 F 67 18 146/60 H 100 Weight Admit Weight 213 lb 8 oz Weight 193 lb 14.4 oz Most Recent Monitor Data Heart Rate from ECG 87 NIBP 164/65 Respiration from ECG 16 I&O: 11/12/17 11/13/17 11/14/17 06:59 06:59 06:59 Intake Total 1500 300 Balance 1500 300 Result Diagrams: 11/13/17 05:08 11/13/17 05:08 Additional Labs: Accuchecks 11/13/17 11/13/17 11/12/17 12:42 05:09 21:08 POC Glucose 83 91 94 11/12/17 16:36 POC Glucose 105 Phys Exam - Physical Examination Constitutional: NAD HEENT: PERRLA, moist MMs, sclera anicteric Neck: no nodes, no JVD, supple, full ROM Respiratory: no wheezing, no rales, no rhonchi Cardiovascular: RRR, no significant murmur, no rub Gastrointestinal: soft, non-tender, no distention, positive bowel sounds Musculoskeletal: no edema, pulses present Neurological: non-focal, normal sensation Psychiatric: normal affect, A&O x 3 Skin: no rash, normal turgor Dx/Plan (1) Hypertension Code(s): I10 - ESSENTIAL (PRIMARY) HYPERTENSION Status: Acute (2) Renal failure Status: Acute (3) Trauma Code(s): T14.90XA - INJURY, UNSPECIFIED, INITIAL ENCOUNTER Status: Acute (4) Leukocytosis Code(s): D72.829 - ELEVATED WHITE BLOOD CELL COUNT, UNSPECIFIED Status: Acute (5) Hyperphosphatemia Code(s): E83.39 - OTHER DISORDERS OF PHOSPHORUS METABOLISM Status: Acute (6) Secondary hyperparathyroidism (of renal origin) Code(s): N25.81 - SECONDARY HYPERPARATHYROIDISM OF RENAL ORIGIN Status: Acute - Plan * BP stable * HD per renal * cont current medical regimen * d/w patient, she understands and agrees with above plan
[2017-11-13] MEDS ORDERED: Nicotine 7 MG PATCH TD SCH (15:30)
[2017-11-13] MEDS: cloNIDine 0.2mg/24 Hour PATCH TD SCH (17:23)
[2017-11-13] MEDS ORDERED: NIFEdipine XL 60 MG TAB PO SCH (22:00)
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
[2017-11-14] MEDS: traMADol HCl 50 MG TAB PO PRN ×2 (01:38→12:29)
--- NOTE | 2017-11-14 08:10 | PDOC.PN ---
- Subjective Encounter Start Date: 11/14/17 Encounter Start Time: 08:09 - Objective Vital Signs & Weight: Vital Signs (12 hours) Temp Pulse Resp BP Pulse Ox 11/14/17 04:00 98.1 F 76 16 130/61 97 11/14/17 00:00 97.6 F 82 16 141/64 H 97 11/13/17 21:21 84 Weight Admit Weight 213 lb 8 oz Weight 188 lb 11.2 oz Most Recent Monitor Data Heart Rate from ECG 87 NIBP 164/65 Respiration from ECG 16 I&O: 11/13/17 11/14/17 11/15/17 06:59 06:59 06:59 Intake Total 300 490 Balance 300 490 Result Diagrams: 11/13/17 05:08 11/13/17 05:08 Additional Labs: Accuchecks 11/14/17 11/13/17 11/13/17 05:20 20:52 16:04 POC Glucose 95 102 141 H 11/13/17 12:42 POC Glucose 83 Phys Exam - Physical Examination Constitutional: NAD HEENT: PERRLA, moist MMs, sclera anicteric Neck: no nodes, no JVD, supple, full ROM Respiratory: no wheezing, no rales, no rhonchi Cardiovascular: RRR, no significant murmur, no rub Gastrointestinal: soft, non-tender, no distention, positive bowel sounds Musculoskeletal: no edema, pulses present RLE in brace Neurological: non-focal, normal sensation Psychiatric: normal affect, A&O x 3 Skin: no rash, normal turgor Dx/Plan (1) Hypertension Code(s): I10 - ESSENTIAL (PRIMARY) HYPERTENSION Status: Acute (2) Renal failure Status: Acute (3) Trauma Code(s): T14.90XA - INJURY, UNSPECIFIED, INITIAL ENCOUNTER Status: Acute (4) Leukocytosis Code(s): D72.829 - ELEVATED WHITE BLOOD CELL COUNT, UNSPECIFIED Status: Acute (5) Hyperphosphatemia Code(s): E83.39 - OTHER DISORDERS OF PHOSPHORUS METABOLISM Status: Acute (6) Secondary hyperparathyroidism (of renal origin) Code(s): N25.81 - SECONDARY HYPERPARATHYROIDISM OF RENAL ORIGIN Status: Acute - Plan * BP stable * continue current regimen for BP * will adjust and lower dosages as HD continues and more volume is removed * Case and plan d/w patient, family also present yesterday evening and they were updated with plan, patient and family understand and agree with this plan * will follow along for BP management from a medical perspective.
[2017-11-14] MEDS: Senokot S 8.6-50 MG TAB PO SCH ×2 (08:46→22:16)
[2017-11-14] MEDS: Ferrous Sulfate 325 MG TAB PO SCH ×2 (08:46→16:01)
[2017-11-14] MEDS: Calcium Acetate 667 MG CAP PO SCH ×3 (08:46→16:01)
[2017-11-14] MEDS: Sevelamer Carbonate 800 MG TAB PO SCH ×3 (08:47→16:01)
[2017-11-14] MEDS: Calcitriol 0.25 MCG CAP PO SCH (08:47)
[2017-11-14] MEDS: Heparin 5,000 UNITS/ML VIAL SC SCH ×2 (08:47→22:16)
[2017-11-14] MEDS: Labetalol 100 MG TAB PO SCH ×2 (08:47→22:17)
[2017-11-14] MEDS: NIFEdipine XL 60 MG TAB PO SCH ×2 (08:48→22:16)
[2017-11-14] MEDS: Polyethylene Glycol 3350 17 GM Packet PO SCH (08:48)
[2017-11-14] MEDS: Famotidine 20 MG TAB PO SCH (08:49)
[2017-11-14] MEDS: Nicotine 14 MG PATCH TOP SCH (15:59)
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
[2017-11-15] MEDS: traMADol HCl 50 MG TAB PO PRN (01:21)
[2017-11-15] MEDS ORDERED: Heparin 10,000 UNITS/ 10 ML VIAL ONE (09:00)
[2017-11-15 09:17] LABS: Albumin 2.9 g/dL (3.4-4.8); Anion Gap 14 mmol/L (10-20); BUN (Urea Nitrogen) 44 mg/dL (9.8-20.1); BUN/Creatinine Ratio 6.52; Calc. Creatinine Clearance 12 mL/min (70-130); Calcium 8.8 mg/dL (7.8-10.44); Carbon Dioxide 24 mmol/L (23-31); Chloride 93 mmol/L (98-107); Estimated GFR-MDRD 7; Glucose 102 mg/dL (80-115); Phosphorus 5.2 mg/dL (2.3-4.7); Potassium 4.4 mmol/L (3.5-5.1); Sodium 127 mmol/L (136-145)
--- NOTE | 2017-11-15 09:35 | PDOC.PN ---
- Subjective Encounter Start Date: 11/15/17 Encounter Start Time: 11:00 Subjective: No complaints. No chest pain or SOB. Seen in dialysis. - Objective MAR Reviewed: Yes Vital Signs & Weight: Vital Signs (12 hours) Temp Pulse Resp BP Pulse Ox 11/15/17 07:49 98.8 F 76 16 137/64 100 11/15/17 03:51 98.6 F 72 16 130/58 L 98 11/14/17 23:46 99.5 F 72 16 143/60 H 99 11/14/17 22:17 70 11/14/17 22:16 70 Weight Admit Weight 213 lb 8 oz Weight 195 lb 3.2 oz Most Recent Monitor Data Heart Rate from ECG 87 NIBP 164/65 Respiration from ECG 16 I&O: 11/14/17 11/15/17 11/16/17 06:59 06:59 06:59 Intake Total 490 1230 Balance 490 1230 Result Diagrams: 11/15/17 08:53 11/15/17 08:53 Additional Labs: Accuchecks 11/15/17 11/14/17 11/14/17 06:05 21:17 16:40 POC Glucose 89 92 110 11/14/17 11:35 POC Glucose 126 H Phys Exam - Physical Examination Constitutional: NAD HEENT: moist MMs Respiratory: no wheezing, no rales, no rhonchi Cardiovascular: RRR, no significant murmur Gastrointestinal: soft, positive bowel sounds Psychiatric: normal affect, A&O x 3 Dx/Plan (1) Hypertension Code(s): I10 - ESSENTIAL (PRIMARY) HYPERTENSION Status: Chronic Qualifiers: Hypertension type: essential hypertension Qualified Code(s): I10 - Essential (primary) hypertension (2) Renal failure Status: Acute Qualifiers: Chronic kidney disease stage: on chronic dialysis (3) Trauma Code(s): T14.90XA - INJURY, UNSPECIFIED, INITIAL ENCOUNTER Status: Acute Comment: Right femoral fracture, left epicondylar and left humeral fractures, pelvic ring fracture (4) Hyperphosphatemia Code(s): E83.39 - OTHER DISORDERS OF PHOSPHORUS METABOLISM Status: Acute (5) Secondary hyperparathyroidism (of renal origin) Code(s): N25.81 - SECONDARY HYPERPARATHYROIDISM OF RENAL ORIGIN Status: Acute - Plan cont current plan of care, PT/OT Arrange placement and dialysis, case management working with family, home -: vs. rehab/SNF * . - Discharge Day Encounter end time: 11:15
[2017-11-15 09:36] LABS: Hemoglobin 7.4 g/dL (12.0-16.0); Mean Corpuscular HGB CONC 33.4 g/dL (32.0-36.0); Mean Corpuscular Hemoglobin 31.2 pg (27.0-31.0); Mean Corpuscular Volume 93.6 fl (81.0-99.0); Platelet Count 374 thou/uL (130-400); RBC Distribution Width 13.1 % (11.5-14.5); Red Blood Cell (RBC) Count 2.37 mill/uL (4.20-5.40)
[2017-11-15 10:06] LABS: Lymphocytes 6 % (21-51); MDiff Complete? YES; Monocytes 4 % (0-10); Neutrophil 90 % (42-75); PLT Morphology Comment Appears Adequate
[2017-11-15] MEDS: Calcitriol 0.25 MCG CAP PO SCH (12:19)
[2017-11-15] MEDS: NIFEdipine XL 60 MG TAB PO SCH ×2 (12:19→22:11)
[2017-11-15] MEDS: Heparin 5,000 UNITS/ML VIAL SC SCH ×2 (12:19→22:12)
[2017-11-15] MEDS: Famotidine 20 MG TAB PO SCH (12:19)
[2017-11-15] MEDS: Sevelamer Carbonate 800 MG TAB PO SCH ×3 (12:19→18:37)
[2017-11-15] MEDS: Calcium Acetate 667 MG CAP PO SCH ×3 (12:19→18:37)
[2017-11-15] MEDS: Labetalol 100 MG TAB PO SCH ×2 (12:19→22:11)
[2017-11-15] MEDS: Ferrous Sulfate 325 MG TAB PO SCH ×2 (12:19→18:37)
[2017-11-15] MEDS: Senokot S 8.6-50 MG TAB PO SCH ×2 (12:20→22:11)
[2017-11-15] MEDS: Polyethylene Glycol 3350 17 GM Packet PO SCH (12:20)
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
[2017-11-15] MEDS: Nicotine 14 MG PATCH TOP SCH (15:21)
--- NOTE | 2017-11-15 18:33 | EKG ---
Test Reason : Blood Pressure : / mmHG Vent. Rate : 083 BPM Atrial Rate : 083 BPM P-R Int : 186 ms QRS Dur : 096 ms QT Int : 368 ms P-R-T Axes : 065 082 103 degrees QTc Int : 432 ms Normal sinus rhythm Normal ECG When compared with ECG of 23-OCT-2017 20:42, (Unconfirmed) ST elevation now present in Inferior leads T wave inversion now evident in Lateral leads Confirmed by OLIVIA MENDOZA (2) on 11/15/2017 6:33:25 PM Referred By: CRYSTAL Confirmed By:OLIVIA MENDOZA
--- NOTE | 2017-11-15 22:21 | PRG ---
DATE OF SERVICE: 11/15/2017 SUBJECTIVE: The patient was seen and examined with no new complaint, noted with the following vital signs. PHYSICAL EXAMINATION: VITAL SIGNS: Afebrile with temperature 99.4, pulse 97, respiratory rate of 16, O2 sat of 98% with bl ood pressure 139/60. HEENT: Unremarkable with moist oral mucosa. NECK: Supple. No conjunctival injection or icterus. CARDIOVASCULAR: First and second heart sounds were heard. RESPIRATORY: Clear to auscultation. DIGESTIVE: Revealed a benign abdomen with positive bowel sounds. EXTREMITIES: No peripheral edema. SKIN: No new gross rash. LYMPHATICS: No peripheral lymphadenopathy. IMPRESSION: End-stage renal disease, hemodialysis dependent. PLAN: We will continue with current regimen of hemodialysis. Outpatient dialysis placement is in pr ogress.
[2017-11-16] MEDS: traMADol HCl 50 MG TAB PO PRN (00:24)
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
[2017-11-16] MEDS: Sevelamer Carbonate 800 MG TAB PO SCH ×3 (09:08→16:47)
[2017-11-16] MEDS: Calcium Acetate 667 MG CAP PO SCH ×3 (09:08→16:47)
[2017-11-16] MEDS: Famotidine 20 MG TAB PO SCH (09:09)
[2017-11-16] MEDS: Ferrous Sulfate 325 MG TAB PO SCH ×2 (09:09→16:47)
[2017-11-16] MEDS: Senokot S 8.6-50 MG TAB PO SCH ×2 (09:09→20:46)
[2017-11-16] MEDS: Labetalol 100 MG TAB PO SCH ×2 (09:09→20:46)
[2017-11-16] MEDS: NIFEdipine XL 60 MG TAB PO SCH ×2 (09:09→20:46)
[2017-11-16] MEDS: Polyethylene Glycol 3350 17 GM Packet PO SCH (09:10)
[2017-11-16] MEDS: Heparin 5,000 UNITS/ML VIAL SC SCH ×2 (09:10→20:46)
[2017-11-16] MEDS: Calcitriol 0.25 MCG CAP PO SCH (09:10)
[2017-11-16] MEDS: Nicotine 14 MG PATCH TOP SCH ×3 (15:46→21:33)
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
[2017-11-17] MEDS: Nicotine 14 MG PATCH TOP SCH ×2 (02:05→20:23)
[2017-11-17 05:25] LABS: #Eosinphils 0.3 thou/uL (0.0-0.7); #Lymphocytes 1.3 thou/uL (1.20-3.40); #Monocytes 0.8 thou/uL (0.11-0.59); #Neutrophils 3.7 thou/uL (1.40-6.50); %Basophils 0.7 % (0.0-1.0); %Eosinophils 4.5 % (0.0-10.0); %Lymphocytes 21.2 % (21.0-51.0); %Monocytes 12.9 % (0.0-10.0); %Neutrophils 60.7 % (42.0-75.0); Hemoglobin 8.4 g/dL (12.0-16.0); Mean Corpuscular HGB CONC 33.9 g/dL (32.0-36.0); Mean Corpuscular Hemoglobin 31.4 pg (27.0-31.0); Mean Corpuscular Volume 92.7 fl (81.0-99.0); Mean Platelet Volume 6.2 fL (7.4-10.4); Platelet Count 370 thou/uL (130-400); RBC Distribution Width 12.6 % (11.5-14.5); Red Blood Cell (RBC) Count 2.68 mill/uL (4.20-5.40); White Blood Cell (WBC) Count 6.1 thou/uL (4.8-10.8)
[2017-11-17 06:19] LABS: Anion Gap 12 mmol/L (10-20); BUN (Urea Nitrogen) 30 mg/dL (9.8-20.1); Calc. Creatinine Clearance 13 mL/min (70-130); Calcium 9.2 mg/dL (7.8-10.44); Carbon Dioxide 27 mmol/L (23-31); Chloride 93 mmol/L (98-107); Estimated GFR-MDRD 8; Glucose 93 mg/dL (80-115); Potassium 4.1 mmol/L (3.5-5.1); Sodium 128 mmol/L (136-145)
[2017-11-17] MEDS ORDERED: Heparin 10,000 UNITS/ 10 ML VIAL ONE (09:00)
[2017-11-17] MEDS: Calcium Acetate 667 MG CAP PO SCH ×3 (11:16→18:00)
[2017-11-17] MEDS: Sevelamer Carbonate 800 MG TAB PO SCH ×3 (11:16→18:00)
[2017-11-17] MEDS: Famotidine 20 MG TAB PO SCH (11:16)
[2017-11-17] MEDS: Calcitriol 0.25 MCG CAP PO SCH (11:16)
[2017-11-17] MEDS: Labetalol 100 MG TAB PO SCH ×2 (11:17→20:23)
[2017-11-17] MEDS: Heparin 5,000 UNITS/ML VIAL SC SCH ×2 (11:19→20:23)
[2017-11-17] MEDS: NIFEdipine XL 60 MG TAB PO SCH ×2 (11:19→20:23)
[2017-11-17] MEDS: Senokot S 8.6-50 MG TAB PO SCH ×2 (11:19→20:23)
[2017-11-17] MEDS: Polyethylene Glycol 3350 17 GM Packet PO SCH (11:20)
[2017-11-17] MEDS: Ferrous Sulfate 325 MG TAB PO SCH ×2 (11:27→18:00)
[2017-11-17] MEDS: Epoetin (ESRD) 10,000 UNITS/ML VIAL SC SCH (14:29)
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
[2017-11-17] MEDS: hydrALAZINE 25 MG TAB PO SCH (20:23)
--- NOTE | 2017-11-17 20:31 | EKG ---
Test Reason : Blood Pressure : / mmHG Vent. Rate : 093 BPM Atrial Rate : 093 BPM P-R Int : 178 ms QRS Dur : 092 ms QT Int : 318 ms P-R-T Axes : 072 077 165 degrees QTc Int : 395 ms Normal sinus rhythm Abnormal ECG When compared with ECG of 11-NOV-2017 07:32, Non-specific change in ST segment in Anterior leads T wave inversion now evident in Inferior leads T wave inversion more evident in Anterolateral leads Confirmed by PAYTON MATHEW, SPatience ([id number]) on 11/17/2017 8:31:17 PM Referred By: CLARKE Confirmed By:DR. Cris CAIN MD
[2017-11-18] MEDS: traMADol HCl 50 MG TAB PO PRN (03:24)
[2017-11-18] MEDS: Heparin 5,000 UNITS/ML VIAL SC SCH (08:01)
[2017-11-18] MEDS: Calcium Acetate 667 MG CAP PO SCH ×2 (08:02→12:13)
[2017-11-18] MEDS: NIFEdipine XL 60 MG TAB PO SCH (08:02)
[2017-11-18] MEDS: Calcitriol 0.25 MCG CAP PO SCH (08:02)
[2017-11-18] MEDS: Polyethylene Glycol 3350 17 GM Packet PO SCH (08:02)
[2017-11-18] MEDS: Famotidine 20 MG TAB PO SCH (08:03)
[2017-11-18] MEDS: Ferrous Sulfate 325 MG TAB PO SCH (08:03)
[2017-11-18] MEDS: hydrALAZINE 25 MG TAB PO SCH ×2 (08:03→15:24)
[2017-11-18] MEDS: Labetalol 100 MG TAB PO SCH (08:03)
[2017-11-18] MEDS: Sevelamer Carbonate 800 MG TAB PO SCH ×2 (08:03→12:13)
[2017-11-18] MEDS: Senokot S 8.6-50 MG TAB PO SCH (08:03)
[2017-11-18] MEDS ORDERED: Vancomycin HCl 1.25 GM in Sodium Chloride 0.9% 250 ML 250 ML IVPB SCH (09:00)
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
[2017-11-18 13:24] VITALS: BMI 29.3
[2017-11-18 15:52] VITALS: BP 164/71; TEMP 97.7
[2017-11-18] MEDS ORDERED: Atorvastatin Calcium 40 MG TAB PO SCH (21:00)
== END 2017-11-18 16:23 | disposition home health service (06) | DRG 956 ==
LOC: ERS 19:30 → IMCU/EMU 22:41 → SDC 22:47 → IMCU/EMU 10-24 02:45 → 2SE 11-04 17:24
PROVIDERS: ADMIT Surgery; ATTEND Surgery
PROC: 0QS804Z Reposition Right Femoral Shaft with Internal Fixation Device, Open Approach (ICD-10-PCS; principal; 2017-10-23)
PROC: 0PSG04Z Reposition Left Humeral Shaft with Internal Fixation Device, Open Approach (ICD-10-PCS; 2017-10-23)
PROC: 3E0234Z Introduction of Serum, Toxoid and Vaccine into Muscle, Percutaneous Approach (ICD-10-PCS; 2017-10-23)
PROC: 30233N1 Transfusion of Nonautologous Red Blood Cells into Peripheral Vein, Percutaneous Approach (ICD-10-PCS; 2017-10-24)
PROC: 0PSG04Z Reposition Left Humeral Shaft with Internal Fixation Device, Open Approach (ICD-10-PCS; 2017-10-25)
PROC: 0PPG04Z Removal of Internal Fixation Device from Left Humeral Shaft, Open Approach (ICD-10-PCS; 2017-10-25)
PROC: 0PSD04Z Reposition Left Humeral Head with Internal Fixation Device, Open Approach (ICD-10-PCS; 2017-10-25)
PROC: 0PPD04Z Removal of Internal Fixation Device from Left Humeral Head, Open Approach (ICD-10-PCS; 2017-10-25)
PROC: 06HN33Z Insertion of Infusion Device into Left Femoral Vein, Percutaneous Approach (ICD-10-PCS; 2017-10-26)
PROC: 5A1D70Z Performance of Urinary Filtration, Intermittent, Less than 6 Hours Per Day (ICD-10-PCS; 2017-10-26)
PROC: 5A1D70Z Performance of Urinary Filtration, Intermittent, Less than 6 Hours Per Day (ICD-10-PCS; 2017-10-27)
PROC: 02HV33Z Insertion of Infusion Device into Superior Vena Cava, Percutaneous Approach (ICD-10-PCS; 2017-10-28)
PROC: 5A1D70Z Performance of Urinary Filtration, Intermittent, Less than 6 Hours Per Day (ICD-10-PCS; 2017-10-28)
PROC: 06HN33Z Insertion of Infusion Device into Left Femoral Vein, Percutaneous Approach (ICD-10-PCS; 2017-10-29)
PROC: 0JH63XZ Insertion of Tunneled Vascular Access Device into Chest Subcutaneous Tissue and Fascia, Percutaneous Approach (ICD-10-PCS; 2017-10-29)
PROC: 02HV33Z Insertion of Infusion Device into Superior Vena Cava, Percutaneous Approach (ICD-10-PCS; 2017-10-29)
PROC: 0DH67UZ Insertion of Feeding Device into Stomach, Via Natural or Artificial Opening (ICD-10-PCS; 2017-10-29)
PROC: 5A1D70Z Performance of Urinary Filtration, Intermittent, Less than 6 Hours Per Day (ICD-10-PCS; 2017-10-29)
PROC: 5A1D70Z Performance of Urinary Filtration, Intermittent, Less than 6 Hours Per Day (ICD-10-PCS; 2017-10-30)
PROC: 5A1D70Z Performance of Urinary Filtration, Intermittent, Less than 6 Hours Per Day (ICD-10-PCS; 2017-11-01)
PROC: 5A1D70Z Performance of Urinary Filtration, Intermittent, Less than 6 Hours Per Day (ICD-10-PCS; 2017-11-03)
PROC: 031B0ZF Bypass Right Radial Artery to Lower Arm Vein, Open Approach (ICD-10-PCS; 2017-11-05)
PROC: 5A1D70Z Performance of Urinary Filtration, Intermittent, Less than 6 Hours Per Day (ICD-10-PCS; 2017-11-05)
PROC: 02H633Z Insertion of Infusion Device into Right Atrium, Percutaneous Approach (ICD-10-PCS; 2017-11-08)
PROC: 5A1D70Z Performance of Urinary Filtration, Intermittent, Less than 6 Hours Per Day (ICD-10-PCS; 2017-11-08)
PROC: 5A1D70Z Performance of Urinary Filtration, Intermittent, Less than 6 Hours Per Day (ICD-10-PCS; 2017-11-09)
PROC: 0JH63XZ Insertion of Tunneled Vascular Access Device into Chest Subcutaneous Tissue and Fascia, Percutaneous Approach (ICD-10-PCS; 2017-11-10)
PROC: 02HV33Z Insertion of Infusion Device into Superior Vena Cava, Percutaneous Approach (ICD-10-PCS; 2017-11-10)
PROC: 5A1D70Z Performance of Urinary Filtration, Intermittent, Less than 6 Hours Per Day (ICD-10-PCS; 2017-11-11)
PROC: 5A1D70Z Performance of Urinary Filtration, Intermittent, Less than 6 Hours Per Day (ICD-10-PCS; 2017-11-12)
PROC: 5A1D70Z Performance of Urinary Filtration, Intermittent, Less than 6 Hours Per Day (ICD-10-PCS; 2017-11-13)
PROC: 5A1D70Z Performance of Urinary Filtration, Intermittent, Less than 6 Hours Per Day (ICD-10-PCS; 2017-11-15)
PROC: 5A1D70Z Performance of Urinary Filtration, Intermittent, Less than 6 Hours Per Day (ICD-10-PCS; 2017-11-17)
DX: S72.351C Displaced comminuted fracture of shaft of right femur, initial encounter for open fracture type IIIA, IIIB, or IIIC (principal); S42.442B Displaced fracture (avulsion) of medial epicondyle of left humerus, initial encounter for open fracture; G93.41 Metabolic encephalopathy; N17.0 Acute kidney failure with tubular necrosis; I63.8 Other cerebral infarction; N18.6 End stage renal disease; S42.292A Other displaced fracture of upper end of left humerus, initial encounter for closed fracture; S32.592A Other specified fracture of left pubis, initial encounter for closed fracture; S32.10XA Unspecified fracture of sacrum, initial encounter for closed fracture; S42.262A Displaced fracture of lesser tuberosity of left humerus, initial encounter for closed fracture; S32.119A Unspecified Zone I fracture of sacrum, initial encounter for closed fracture; S22.41XA Multiple fractures of ribs, right side, initial encounter for closed fracture; S42.252A Displaced fracture of greater tuberosity of left humerus, initial encounter for closed fracture; S27.0XXA Traumatic pneumothorax, initial encounter; T79.7XXA Traumatic subcutaneous emphysema, initial encounter; E87.2 Acidosis; N17.9 Acute kidney failure, unspecified; N39.0 Urinary tract infection, site not specified; D62 Acute posthemorrhagic anemia; E87.1 Hypo-osmolality and hyponatremia; N18.4 Chronic kidney disease, stage 4 (severe); T82.42XA Displacement of vascular dialysis catheter, initial encounter; N25.81 Secondary hyperparathyroidism of renal origin; I12.9 Hypertensive chronic kidney disease with stage 1 through stage 4 chronic kidney disease, or unspecified chronic kidney disease; S30.811A Abrasion of abdominal wall, initial encounter; S20.312A Abrasion of left front wall of thorax, initial encounter; S20.311A Abrasion of right front wall of thorax, initial encounter; S41.142A Puncture wound with foreign body of left upper arm, initial encounter; I95.9 Hypotension, unspecified; Y92.411 Interstate highway as the place of occurrence of the external cause; V87.2XXA Person injured in collision between car and pick-up truck or van (traffic), initial encounter; E83.39 Other disorders of phosphorus metabolism; S72.452 Displaced supracondylar fracture without intracondylar extension of lower end of left femur; E83.42 Hypomagnesemia; E87.5 Hyperkalemia; E66.9 Obesity, unspecified; F17.290 Nicotine dependence, other tobacco product, uncomplicated; T79.6XXA Traumatic ischemia of muscle, initial encounter; E83.51 Hypocalcemia; N63.0 Unspecified lump in unspecified breast; S40.212A Abrasion of left shoulder, initial encounter; S00.81XA Abrasion of other part of head, initial encounter; S40.211A Abrasion of right shoulder, initial encounter; S30.810A Abrasion of lower back and pelvis, initial encounter; N14.1 Nephropathy induced by other drugs, medicaments and biological substances; T50.8X5A Adverse effect of diagnostic agents, initial encounter; Y92.239 Unspecified place in hospital as the place of occurrence of the external cause; Y83.1 Surgical operation with implant of artificial internal device as the cause of abnormal reaction of the patient, or of later complication, without mention of misadventure at the time of the procedure; F81.9 Developmental disorder of scholastic skills, unspecified; K59.03 Drug induced constipation; T40.2X5A Adverse effect of other opioids, initial encounter; I16.0 Hypertensive urgency; D64.89 Other specified anemias; R19.7 Diarrhea, unspecified; I07.1 Rheumatic tricuspid insufficiency; R73.9 Hyperglycemia, unspecified; Z79.899 Other long term (current) drug therapy; Z78.1 Physical restraint status; Z23 Encounter for immunization
CPT/HCPCS: 36415; 36416; 36430; 51702; 70450; 71045; 71260; 72125; 72170; 74018; 74177; 76001; 76770; 80048; 80053; 80069; 81003; 81015; 82150; 82330; 82550; 83605; 83735; 83970; 84100; 85025; 85610; 85730; 86704; 86706; 86803; 86850; 86900; 86901; 87040; 87086; 87340; 90471; 90670; 90715; 90935; 93005; 93010; 93306; 93970; 99292; A4216; C1713; C1752; C1769; G0009; G0257; G0365; G0390; G8978-GP-CM; G8979-GP-CJ; G8979-GP-CK; G8979-GP-CL; G8987-GO-CM; G8988-GO-CK; G8996-GN-CJ; G8996-GN-CK; G8996-GN-CM; G8997-GN-CI; G8997-GN-CJ; J0131; J0670; J0696; J1644; J1940; J2001; J2250; J2270; J2704; J2720; J2765; J2997; J3010; J3370; J7050; J7070; P9016; Q4081

== ENCOUNTER 2017-11-23 17:21 | Emergency (ER) | payer OTHER ==
[2017-11-23] MEDS ORDERED: Morphine 4 MG/ML VIAL ONE (18:01)
[2017-11-23] MEDS ORDERED: Ondansetron ODT 8 MG TAB ONE (18:01)
[2017-11-23 18:49] LABS: #Eosinphils 0.1 thou/uL (0.0-0.7); #Lymphocytes 1.6 thou/uL (1.20-3.40); #Monocytes 0.6 thou/uL (0.11-0.59); #Neutrophils 5.6 thou/uL (1.40-6.50); %Basophils 0.4 % (0.0-1.0); %Eosinophils 1.6 % (0.0-10.0); %Lymphocytes 19.6 % (21.0-51.0); %Monocytes 7.9 % (0.0-10.0); %Neutrophils 70.5 % (42.0-75.0); Hemoglobin 7.2 g/dL (12.0-16.0); Mean Corpuscular Hemoglobin 30.4 pg (27.0-31.0); Mean Corpuscular Volume 92.1 fl (81.0-99.0); Mean Platelet Volume 5.6 fL (7.4-10.4); Platelet Count 401 thou/uL (130-400); RBC Distribution Width 12.7 % (11.5-14.5); Red Blood Cell (RBC) Count 2.37 mill/uL (4.20-5.40)
[2017-11-23 19:09] LABS: ALT (SGPT) 8 U/L (8-55); AST (SGOT) 17 U/L (5-34); Alkaline Phosphatase 345 U/L (40-150); Anion Gap 12 mmol/L (10-20); BUN (Urea Nitrogen) 31 mg/dL (9.8-20.1); Bilirubin, Total 0.5 mg/dL (0.2-1.2); Calc. Creatinine Clearance 0 mL/min (70-130); Calcium 9.1 mg/dL (7.8-10.44); Carbon Dioxide 29 mmol/L (23-31); Chloride 95 mmol/L (98-107); Estimated GFR-MDRD 9; Globulin 3.5 g/dL (2.4-3.5); Glucose 114 mg/dL (80-115); Protein, Total 6.5 g/dL (6.0-8.3); Sodium 132 mmol/L (136-145)
== END 2017-11-23 19:44 | disposition home or self-care (01) ==
LOC: ERS 17:21
DX: G89.18 Other acute postprocedural pain (principal); M25.512 Pain in left shoulder; D64.9 Anemia, unspecified; I12.0 Hypertensive chronic kidney disease with stage 5 chronic kidney disease or end stage renal disease; N18.6 End stage renal disease; F17.220 Nicotine dependence, chewing tobacco, uncomplicated; Z99.2 Dependence on renal dialysis; Z79.899 Other long term (current) drug therapy
CPT/HCPCS: 36416; 80053; 83605; 85025; 87040; 96374; J2270

== ENCOUNTER 2017-11-27 10:18 | Inpatient (IN) | payer OTHER ==
[2017-11-27 11:57] LABS: Hemoglobin 6.8 g/dL (12.0-16.0); Mean Corpuscular HGB CONC 32.6 g/dL (32.0-36.0); Mean Corpuscular Hemoglobin 30.4 pg (27.0-31.0); Mean Corpuscular Volume 93.4 fl (81.0-99.0); Mean Platelet Volume 11.5 fL (7.4-10.4); RBC Distribution Width 12.7 % (11.5-14.5); Red Blood Cell (RBC) Count 2.24 mill/uL (4.20-5.40); White Blood Cell (WBC) Count 7.1 thou/uL (4.8-10.8)
--- NOTE | 2017-11-27 11:58 | RAD ---
PORTABLE CHEST 1 VIEW: Date: 11/27/17 Time: 1126 hours HISTORY: Cognitive disability. Patient pulled out dialysis port. Bleeding controlled. FINDINGS/IMPRESSION: Comparison made with exam of 11/10/17, There has been interval removal of the right-sided dialysis catheter. The heart size is normal. The l ungs are well expanded without confluent areas of consolidation, pneumothoraces, or pleural effusions . There is stable fragmentation of the left proximal humerus. POS: [facility]
[2017-11-27 12:09] LABS: ALT (SGPT) 7 U/L (8-55); AST (SGOT) 18 U/L (5-34); Alkaline Phosphatase 402 U/L (40-150); Anion Gap 15 mmol/L (10-20); BUN (Urea Nitrogen) 15 mg/dL (9.8-20.1); Bilirubin, Total 0.5 mg/dL (0.2-1.2); Calc. Creatinine Clearance 0 mL/min (70-130); Calcium 8.5 mg/dL (7.8-10.44); Carbon Dioxide 28 mmol/L (23-31); Chloride 96 mmol/L (98-107); Estimated GFR-MDRD 13; Globulin 3.3 g/dL (2.4-3.5); Glucose 117 mg/dL (80-115); Potassium 3.9 mmol/L (3.5-5.1); Protein, Total 6.3 g/dL (6.0-8.3)
[2017-11-27 12:11] LABS: Sodium 135 mmol/L (136-145)
[2017-11-27 12:25] LABS: #Eosinphils 0.2 thou/uL (0.0-0.7); #Lymphocytes 1.5 thou/uL (1.20-3.40); #Neutrophils 7.2 thou/uL (1.40-6.50); %Basophils 0.3 % (0.0-1.0); %Eosinophils 1.6 % (0.0-10.0); %Lymphocytes 15.4 % (21.0-51.0); %Monocytes 9.8 % (0.0-10.0); %Neutrophils 72.9 % (42.0-75.0); Platelet Count 422 thou/uL (130-400)
--- NOTE | 2017-11-27 12:31 | CT ---
CT BRAIN WITHOUT CONTRAST: Date: 11/27/17 HISTORY: Altered mental status. FINDINGS: Comparison made with exam of 11/05/17. Old infarcts in the periventricular white matter and left basal ganglia are seen. No evidence of acut e infarct, hemorrhage, midline shift, or abnormal extra-axial fluid collections are noted. The ventri cular size is stable and the basilar cisterns are patent. The bony calvarium is intact. The visualize d paranasal sinuses and mastoid air cells are well aerated. IMPRESSION: No CT evidence of acute intracranial process. If there is high clinical suspicion for an acute fracture, further evaluation with MRI using diffusio n-weighted sequences should be performed. POS: [facility]
[2017-11-27] MEDS: Gemfibrozil 600 MG TAB PO SCH (16:58)
[2017-11-27] MEDS: Atorvastatin Calcium 40 MG TAB PO SCH (20:01)
[2017-11-27] MEDS: Famotidine 20 MG TAB PO SCH (20:01)
[2017-11-27] MEDS: Labetalol 100 MG TAB PO SCH (20:02)
[2017-11-27] MEDS: hydrALAZINE 25 MG TAB PO SCH (20:03)
[2017-11-27] MEDS: NIFEdipine XL 60 MG TAB PO SCH (20:03)
[2017-11-27] MEDS: traMADol HCl 50 MG TAB PO PRN (20:04)
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
[2017-11-28 04:42] LABS: #Eosinphils 0.4 thou/uL (0.0-0.7); #Monocytes 0.8 thou/uL (0.11-0.59); #Neutrophils 4.9 thou/uL (1.40-6.50); %Basophils 0.2 % (0.0-1.0); %Eosinophils 4.8 % (0.0-10.0); %Lymphocytes 24.5 % (21.0-51.0); %Monocytes 9.8 % (0.0-10.0); %Neutrophils 60.7 % (42.0-75.0); Hemoglobin 7.3 g/dL (12.0-16.0); Mean Corpuscular HGB CONC 33.2 g/dL (32.0-36.0); Mean Corpuscular Volume 93.3 fl (81.0-99.0); Mean Platelet Volume 6.2 fL (7.4-10.4); Platelet Count 402 thou/uL (130-400); RBC Distribution Width 12.8 % (11.5-14.5); Red Blood Cell (RBC) Count 2.35 mill/uL (4.20-5.40); White Blood Cell (WBC) Count 8.1 thou/uL (4.8-10.8)
[2017-11-28 04:51] LABS: Anion Gap 12 mmol/L (10-20); BUN (Urea Nitrogen) 18 mg/dL (9.8-20.1); Calc. Creatinine Clearance 17 mL/min (70-130); Calcium 8.6 mg/dL (7.8-10.44); Carbon Dioxide 29 mmol/L (23-31); Chloride 98 mmol/L (98-107); Estimated GFR-MDRD 11; Glucose 84 mg/dL (80-115); Potassium 3.8 mmol/L (3.5-5.1); Sodium 135 mmol/L (136-145)
[2017-11-28] MEDS: Levothyroxine 150 MCG TAB PO SCH (05:53)
[2017-11-28] MEDS: Gemfibrozil 600 MG TAB PO SCH ×2 (05:53→16:54)
[2017-11-28] MEDS: hydrALAZINE 25 MG TAB PO SCH ×3 (08:28→20:19)
[2017-11-28] MEDS: Labetalol 100 MG TAB PO SCH ×2 (08:28→20:18)
[2017-11-28] MEDS: Aspirin 81 mg Enteric Coated Tablet PO SCH (08:28)
[2017-11-28] MEDS: NIFEdipine XL 60 MG TAB PO SCH (08:28)
[2017-11-28] MEDS ORDERED: Lisinopril 20 MG TAB PO SCH (09:00)
[2017-11-28] MEDS: traMADol HCl 50 MG TAB PO PRN ×2 (13:27→20:19)
[2017-11-28] MEDS: Atorvastatin Calcium 40 MG TAB PO SCH (20:19)
[2017-11-28] MEDS: Famotidine 20 MG TAB PO SCH (20:19)
[2017-11-28] MEDS: Docusate 100 MG CAP PO SCH (20:20)
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
[2017-11-29] MEDS: Levothyroxine 150 MCG TAB PO SCH (05:16)
[2017-11-29] MEDS: Gemfibrozil 600 MG TAB PO SCH ×2 (05:19→17:12)
[2017-11-29 05:58] LABS: #Eosinphils 0.4 thou/uL (0.0-0.7); #Lymphocytes 1.7 thou/uL (1.20-3.40); #Monocytes 0.7 thou/uL (0.11-0.59); %Basophils 0.3 % (0.0-1.0); %Eosinophils 6.5 % (0.0-10.0); %Lymphocytes 25.2 % (21.0-51.0); %Monocytes 10.5 % (0.0-10.0); %Neutrophils 57.5 % (42.0-75.0); Hemoglobin 6.9 g/dL (12.0-16.0); Mean Corpuscular HGB CONC 32.6 g/dL (32.0-36.0); Mean Corpuscular Hemoglobin 30.4 pg (27.0-31.0); Mean Corpuscular Volume 93.2 fl (81.0-99.0); Platelet Count 364 thou/uL (130-400); Red Blood Cell (RBC) Count 2.27 mill/uL (4.20-5.40); White Blood Cell (WBC) Count 6.9 thou/uL (4.8-10.8)
[2017-11-29 06:10] LABS: Anion Gap 14 mmol/L (10-20); BUN (Urea Nitrogen) 26 mg/dL (9.8-20.1); Calc. Creatinine Clearance 14 mL/min (70-130); Calcium 8.5 mg/dL (7.8-10.44); Carbon Dioxide 28 mmol/L (23-31); Chloride 96 mmol/L (98-107); Estimated GFR-MDRD 9; Glucose 78 mg/dL (80-115); Potassium 3.8 mmol/L (3.5-5.1); Sodium 134 mmol/L (136-145)
[2017-11-29 08:37] VITALS: BMI 29.1
[2017-11-29] MEDS: Docusate 100 MG CAP PO SCH (08:57)
[2017-11-29] MEDS: Aspirin 81 mg Enteric Coated Tablet PO SCH (08:58)
[2017-11-29] MEDS: traMADol HCl 50 MG TAB PO PRN (08:58)
[2017-11-29] MEDS: Labetalol 100 MG TAB PO SCH (08:59)
[2017-11-29] MEDS: hydrALAZINE 25 MG TAB PO SCH ×2 (08:59→14:42)
[2017-11-29] MEDS ORDERED: Heparin 1,000 UNITS/ML VIAL ONE (11:11)
[2017-11-29] MEDS ORDERED: PROPOFOL 200 MG/20 ML VIAL ONE (13:58)
[2017-11-29] MEDS ORDERED: CEFAZOLIN/Water 2 GM/20 ML SYRINGE SLOW IVP SCH (14:15)
--- NOTE | 2017-11-29 14:21 | CON ---
DATE OF CONSULTATION: 11/29/2017 Shelby Dias is a 66-year-old white female who lives at home. She is confused and pulled out her he modialysis catheter. On 10/29/2017 I placed a right IJ cuffed tunnel dialysis catheter and replaced a Dobbhoff tube and on 11/05/2017, I performed a right arm fistula cephalic vein upper arm, 4 mm june nary dilator, secondary outflow basilic vein, retrograde antecubital vein preserved and on 11/10/2017 I placed a right IJ hemodialysis catheter. The patient at home removed the catheter and I am asked to replace it again, she is anemic and will need transfusion. Her electrolytes are normal. She is i n IMCU because of overflow of medical bed. She is a medical bed status. ALLERGIES: None. Please see recent consultation. TOBACCO: None. Please see recent consultation/history and physical. PHYSICAL EXAMINATION. VITAL SIGNS: Height 5 foot 9, 197 pounds, 29 BMI, 98.4, 76, 116/49. HEENT: Unremarkable. LUNGS: Clear to auscultation. CARDIAC: Regular rate and rhythm without murmur or gallop. ABDOMEN: Soft, nontender. EXTREMITIES: Good right arm fistula, good thrill and bruit. ASSESSMENT AND PLAN: End-stage renal disease. We will plan placement of hemodialysis catheter. She has been n.p.o. since 7:00 a.m. We will plan this afternoon and then will dialyze her and transfuse her.
[2017-11-29] MEDS ORDERED: Albumin 5% 0 ML ONE (16:39)
[2017-11-29] MEDS ORDERED: Labetalol HCl 100 MG/20 ML VIAL ONE (17:52)
[2017-11-29] MEDS ORDERED: Sodium Chloride 0.9% 10 ML ONE (17:55)
[2017-11-29] MEDS ORDERED: Heparin 0 ML ONE (17:55)
[2017-11-29] MEDS ORDERED: Lidocaine 2% 10 ML INJ ONE (17:55)
[2017-11-29] MEDS ORDERED: Bupivacaine HCl 0.5%/Epinephrine 1:200,000/PF 30 ml Vial ONE (17:55)
[2017-11-29] MEDS ORDERED: Heparin 10,000 UNITS/1 ML VIAL ONE (17:57)
[2017-11-29] MEDS ORDERED: CEFAZOLIN/Water 2 GM/20 ML SYRINGE ONE (18:16)
[2017-11-29] MEDS ORDERED: Fentanyl 100 MCG/2 ML VIAL ONE (18:35)
[2017-11-29] MEDS ORDERED: Midazolam HCl 2 mg/2 ml Vial ONE (18:35)
--- NOTE | 2017-11-29 20:15 | PRG ---
DATE OF SERVICE: 11/29/2014 SUBJECTIVE: The patient was seen and examined with no new complaint, noted with the following. PHYSICAL EXAMINATION: VITAL SIGNS: Afebrile with temperature 98.3, pulse 75, respiratory 18, O2 sat 95%, blood pressure __ ___(00:26). HEENT: Unremarkable with moist oral mucosa. Neck: Supple, no conjunctival injection, no icterus. CARDIOVASCULAR SYSTEM: First and second heart sounds were heard. RESPIRATORY SYSTEM: Clear to auscultation. DIGESTIVE SYSTEM: Revealed a benign abdomen with positive bowel sounds. EXTREMITIES: No peripheral edema. SKIN: No new gross rash. LABORATORY INVESTIGATION: Significant for hemoglobin of 6.9. Chemistry showed a creatinine of 5.65, and BUN of 26. IMPRESSION: 1. End-stage renal disease, on hemodialysis. 2. Dislodged catheter. The patient pulled out the dialysis catheter out of confusion. 3. Anemia, likely anemia of chronic kidney disease plus or minus blood loss. 4. Transient mental status change, likely in the context of hypotension. PLAN: 1. Patient likely to undergo placement of a dialysis catheter per access surgeon. 2. Patient to require blood transfusions, status post access catheter placement and dialysis treatme nt. 3. Further management to be dependent on the clinical course.
--- NOTE | 2017-11-29 21:46 | RAD ---
CHEST ONE VIEW: HISTORY: Line placement. COMPARISON: 11/27/2017 FINDINGS: The heart size and mediastinum are within normal limits for the portable technique. A right-sided He moSplit catheter has been placed. The catheter tip overlies the superior vena cava. There are no si gns of pneumothorax. IMPRESSION: 1. Placement of HemoSplit catheter. 2. No signs of pneumothorax. 3. Deformity to the left humeral head and proximal humerus and associated fracture again noted. POS: [facility]
[2017-11-30] MEDS: Atorvastatin Calcium 40 MG TAB PO SCH ×2 (00:26→21:48)
[2017-11-30] MEDS: hydrALAZINE 25 MG TAB PO SCH ×4 (00:27→21:49)
[2017-11-30] MEDS: traMADol HCl 50 MG TAB PO PRN ×2 (00:27→06:42)
[2017-11-30] MEDS: Famotidine 20 MG TAB PO SCH ×2 (00:28→21:48)
[2017-11-30] MEDS: Docusate 100 MG CAP PO SCH ×3 (00:28→21:49)
--- NOTE | 2017-11-30 01:28 | OP ---
DATE OF OPERATION: 11/30/2017 PREOPERATIVE DIAGNOSES: End-stage renal disease and encephalopathic. Patient dislodged hemodialysis catheter. POSTOPERATIVE DIAGNOSES: End-stage renal disease and encephalopathic. Patient dislodged hemodialysi s catheter. PROCEDURE: Placement of right IJ cuffed tunnel hemodialysis catheter, fluoroscopy used, ultrasound u sed. SURGEON: Dr. Bhavik Cormier. ANESTHESIA: 0.5% Marcaine with epinephrine, 30 mL, mixed with 2% Xylocaine, 10 mL, 20 mL mixture use d. PROCEDURE IN DETAIL: Patient was taken to the operating room where under intravenous sedation, neck and chest were prepped with ChloraPrep, draped in routine fashion. Patient was very uncooperative. Using ultrasound guidance, right internal jugular veins was cannulated. I could not thread the curve d end of the wire, but the straight end of the wire threaded into the superior vena cava visualized f luoroscopically. Stab incision made over the right chest at exit site using the tunneling device, pr ecurved angiodynamics, cuffed tunnel hemodialysis catheter tunneled placing the fabric cuff beneath t he skin exit site and catheters secured with 2 interrupted sutures of 2-0 nylon. Smaller and medium size dilators placed and removed. Enlarged dilator and pull-away sheath placed over the J-wire in narvaez perior vena cava and dilator and J-wire removed. Catheter placed with pull-away sheath and pull-away sheath removed. Fluoroscopic catheter noted to be in good position. Platysma approximated with 4-0 Monocryl, skin with subdermal 4-0 Monocryl. Dermabond and sterile dressing applied. Each port aspi rated, blood flushed with saline solution. Heparinized saline solution 1000 units of heparin per mL indicated volume of the port.
[2017-11-30] MEDS: Levothyroxine 150 MCG TAB PO SCH (05:12)
[2017-11-30] MEDS: Gemfibrozil 600 MG TAB PO SCH ×2 (08:19→15:55)
[2017-11-30] MEDS: Aspirin 81 mg Enteric Coated Tablet PO SCH (08:20)
[2017-11-30] MEDS: Labetalol 100 MG TAB PO SCH ×2 (09:32→21:48)
[2017-11-30] MEDS ORDERED: Nicotine 21 MG PATCH TOP SCH (21:00)
[2017-12-01] MEDS: traMADol HCl 50 MG TAB PO PRN (00:03)
[2017-12-01 05:03] LABS: #Eosinphils 0.4 thou/uL (0.0-0.7); #Lymphocytes 1.7 thou/uL (1.20-3.40); #Monocytes 0.7 thou/uL (0.11-0.59); #Neutrophils 3.8 thou/uL (1.40-6.50); %Basophils 0.4 % (0.0-1.0); %Eosinophils 5.6 % (0.0-10.0); %Lymphocytes 25.7 % (21.0-51.0); %Monocytes 11.1 % (0.0-10.0); %Neutrophils 57.2 % (42.0-75.0); Hemoglobin 9.2 g/dL (12.0-16.0); Mean Corpuscular Hemoglobin 29.6 pg (27.0-31.0); Mean Corpuscular Volume 92.3 fl (81.0-99.0); Mean Platelet Volume 5.9 fL (7.4-10.4); Platelet Count 459 thou/uL (130-400); RBC Distribution Width 13.1 % (11.5-14.5); Red Blood Cell (RBC) Count 3.11 mill/uL (4.20-5.40); White Blood Cell (WBC) Count 6.6 thou/uL (4.8-10.8)
[2017-12-01] MEDS: Levothyroxine 150 MCG TAB PO SCH (05:11)
[2017-12-01 05:23] LABS: Anion Gap 14 mmol/L (10-20); BUN (Urea Nitrogen) 16 mg/dL (9.8-20.1); Calc. Creatinine Clearance 22 mL/min (70-130); Calcium 8.9 mg/dL (7.8-10.44); Carbon Dioxide 27 mmol/L (23-31); Chloride 99 mmol/L (98-107); Estimated GFR-MDRD 15; Glucose 113 mg/dL (80-115); Potassium 3.8 mmol/L (3.5-5.1); Sodium 136 mmol/L (136-145)
[2017-12-01 07:40] VITALS: TEMP 98.5
[2017-12-01] MEDS ORDERED: Heparin 10,000 UNITS/ 10 ML VIAL ONE (09:00)
--- NOTE | 2017-12-01 09:37 | PRG ---
DATE OF SERVICE: 11/30/2017 SUBJECTIVE: The patient was seen and examined with no new complaint. PHYSICAL EXAMINATION: VITAL SIGNS: Afebrile with temperature 98.1, pulse 89, respiratory rate 20, O2 sat of 99%, blood pre ssure 125/70. HEENT: Unremarkable with moist oral mucosa. NECK: Supple, no conjunctival injection or icterus. CARDIOVASCULAR: Positive bowel sounds were heard. RESPIRATORY: Clear to auscultation. DIGESTIVE: Revealed a benign abdomen with positive bowel sounds. EXTREMITIES: No peripheral edema. SKIN: No new gross rash. IMPRESSION: 1. End-stage renal disease, on hemodialysis. 2. Dislodged dialysis catheter, status post replacement. 3. Altered mental status. PLAN: 1. Patient seems to be back to her baseline and from the renal standpoint, the patient is good for d ischarge to continue with outpatient hemodialysis on Wednesday, Wednesday, Wednesday schedule. 2. The patient has been counseled extensively on the need to avoid pulling out dialysis catheter. 3. Further management to be dependent on the clinical course.
[2017-12-01] MEDS: Aspirin 81 mg Enteric Coated Tablet PO SCH (13:14)
[2017-12-01] MEDS: Gemfibrozil 600 MG TAB PO SCH ×2 (13:14→15:53)
[2017-12-01] MEDS: Labetalol 100 MG TAB PO SCH (13:14)
[2017-12-01] MEDS: hydrALAZINE 25 MG TAB PO SCH ×2 (13:14→15:53)
[2017-12-01] MEDS: Docusate 100 MG CAP PO SCH (13:15)
[2017-12-01 15:57] VITALS: BP 136/79
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
--- NOTE | 2017-12-03 12:07 | PQF ---
ZAID GARCIA VENKAT R MD [id number] [place] [id number] CLINICAL DOCUMENTATION CLARIFICATION FORM: POST DISCHARGE Addendum to original discharge summary date: ____ Late entry note date: __ Documentation in the Ed record and wound care notes indicate: sacral stage II ulcer upper back stage II ulcer Further clarification is needed for each of these sites to enuser the appropriate severity of illness is captured. Please specify the cause and type of wound associated with these sites. Please respond on this form or dicate an addendum to the d/c summary. Please exercise your independent, professional judgment in responding to the clarification form. Clinical indicators are provided on the bottom of this form for your review Please check appropriate box(s): ____y___ I (concur) with the Wound Care findings as stated below. [ ] Pressure Ulcer: (Stage I: Erythema; Stage II: Partial thickness; Stage III : Full thickness; Stage IV: Necrosis to muscle/bone) [ ] Location: SACRAL POA: [ ] Yes [ ] No [ ] Unable to determine Stage (I to IV): 2 (Left Right Bilateral_ ____ N/A__X___) [ ] Location: UPPER BACK POA: [ X ] Yes [ ] No [ ] Unable to determine Stage (I to IV): 2I (Left Right Bilateral N/A__X___) [ ] No pressure ulcer diagnosis [ ] Deep tissue injury [ ] Other diagnosis [ ] Unable to determine In addition, please specify: Present on Admission (POA): [ y] Yes [ ] No [ ] Unable to determine For continuity of documentation, please document condition throughout progress notes and discharge summary. Thank You. CLINICAL INDICATORS - SIGNS / SYMPTOMS / LABS Pre-ulcer skin changes limited to persistent focal edema (Stage 1) Abrasion, blister, partial thickness skin loss involving epidermis and/or dermis (Stage 2) Full thickness skin loss involving damage or necrosis of SQ tissue. (Stage 3) Necrosis of soft tissue through to underlying muscle, tendon, or bone. (Stage 4) Purple or maroon discolored skin or blood filled blister RISK FACTORS: Immobility/ bedridden/ debility TREATMENTS: Wound care consult Dressing changes (This form is maintained as a part of the permanent medical record) 2015 [email or web address]. All Rights Reserved Alina [email or web address] [phone] MTDD
== END 2017-12-01 16:20 | DRG 673 ==
LOC: ERS 10:18 → IMCU/EMU 16:01 → CCU 11-29 16:38 → IMCU/EMU 11-29 16:42 → T4-A 11-30 03:41
PROVIDERS: ADMIT Internal Medicine; ATTEND Internal Medicine
PROC: 30233N1 Transfusion of Nonautologous Red Blood Cells into Peripheral Vein, Percutaneous Approach (ICD-10-PCS; principal; 2017-11-29)
PROC: 5A1D70Z Performance of Urinary Filtration, Intermittent, Less than 6 Hours Per Day (ICD-10-PCS; 2017-11-29)
PROC: 0JH63XZ Insertion of Tunneled Vascular Access Device into Chest Subcutaneous Tissue and Fascia, Percutaneous Approach (ICD-10-PCS; 2017-11-30)
PROC: 02HV33Z Insertion of Infusion Device into Superior Vena Cava, Percutaneous Approach (ICD-10-PCS; 2017-11-30)
DX: I12.0 Hypertensive chronic kidney disease with stage 5 chronic kidney disease or end stage renal disease (principal); N18.6 End stage renal disease; G93.41 Metabolic encephalopathy; T82.42XA Displacement of vascular dialysis catheter, initial encounter; D63.1 Anemia in chronic kidney disease; X58.XXXA Exposure to other specified factors, initial encounter; L89.152 Pressure ulcer of sacral region, stage 2; L89.102 Pressure ulcer of unspecified part of back, stage 2; K21.9 Gastro-esophageal reflux disease without esophagitis; F17.220 Nicotine dependence, chewing tobacco, uncomplicated; E78.5 Hyperlipidemia, unspecified; S72.91XD Unspecified fracture of right femur, subsequent encounter for closed fracture with routine healing; S42.302D Unspecified fracture of shaft of humerus, left arm, subsequent encounter for fracture with routine healing; V99.XXXD Unspecified transport accident, subsequent encounter; Y92.9 Unspecified place or not applicable; Z95.828 Presence of other vascular implants and grafts; Z99.2 Dependence on renal dialysis; Z79.899 Other long term (current) drug therapy
CPT/HCPCS: 36415; 36430; 70450; 71045; 80048; 80053; 85025; 86850; 86900; 86901; 90935; 93005; 93010; A4216; C1752; C1769; G0257; J0670; J1644; J2250; J2704; J3010; P9016; P9045

== ENCOUNTER 2018-01-05 21:18 | Inpatient (IN) | payer OTHER ==
[2018-01-05 22:16] LABS: #Lymphocytes 1.4 thou/uL (1.20-3.40); #Monocytes 0.8 thou/uL (0.11-0.59); #Neutrophils 9.9 thou/uL (1.40-6.50); %Basophils 0.2 % (0.0-1.0); %Eosinophils 0.2 % (0.0-10.0); %Lymphocytes 11.6 % (21.0-51.0); %Monocytes 6.7 % (0.0-10.0); %Neutrophils 81.4 % (42.0-75.0); Hemoglobin 8.6 g/dL (12.0-16.0); Mean Corpuscular HGB CONC 32.3 g/dL (32.0-36.0); Mean Corpuscular Hemoglobin 29.4 pg (27.0-31.0); Mean Corpuscular Volume 91.1 fL (78.0-98.0); Mean Platelet Volume 6.2 fL (7.4-10.4); Platelet Count 419 thou/uL (130-400); RBC Distribution Width 14.7 % (11.5-14.5); Red Blood Cell (RBC) Count 2.93 mill/uL (4.20-5.40); White Blood Cell (WBC) Count 12.2 thou/uL (4.8-10.8)
--- NOTE | 2018-01-05 22:19 | RAD ---
PORTABLE SEMIUPRIGHT FRONTAL CHEST RADIOGRAPH 01/05/18 COMPARISON: 11/29/17 HISTORY: Cough and fever. FINDINGS: There is increased linear interstitial density in both lung bases, left greater than right, slightly worsened when compared to the 11/29/17 exam. There is a stable right sided dialysis catheter. Heart and mediastinal contours are stable. IMPRESSION: Hazy, nonspecific bibasilar pulmonary parenchymal opacity, left greater than right. Findings suggest multifocal infectious pneumonitis or aspiration. Recommend followup imaging following treatment to do cument resolution. POS: [facility]
[2018-01-05 22:29] LABS: ALT (SGPT) 12 U/L (8-55); AST (SGOT) 31 U/L (5-34); Albumin 2.7 g/dL (3.4-4.8); Alkaline Phosphatase 186 U/L (40-150); Anion Gap 13 mmol/L (10-20); BUN (Urea Nitrogen) 5 mg/dL (9.8-20.1); Bilirubin, Total 0.7 mg/dL (0.2-1.2); Calc. Creatinine Clearance 0 mL/min (70-130); Calcium 8.7 mg/dL (7.8-10.44); Carbon Dioxide 32 mmol/L (23-31); Chloride 97 mmol/L (98-107); Estimated GFR-MDRD 37; Globulin 3.9 g/dL (2.4-3.5); Glucose 94 mg/dL (80-115); Potassium 3.1 mmol/L (3.5-5.1); Protein, Total 6.6 g/dL (6.0-8.3); Sodium 139 mmol/L (136-145)
[2018-01-06 01:13] LABS: Bilirubin Small (Negative); Blood, Urine Small (Negative); Clarity TURBID (Clear); Glucose, Urine (Dipstick) Negative (Negative); Leukocyte Large (Negative); Nitrite Negative (Negative); Protein, Urine (Dipstick) 300 mg/dL (Neg-Trace); Specific Gravity, Urine 1.014 (1.002-1.036); Urobilinogen 0.2 mg/dL (0.2-1.0)
[2018-01-06 01:15] LABS: Bacteria/HPF Rare-Few HPF (None Seen); Hyaline Casts/LPF 7-10 HYALINE CAST LPF (0-3 Hyaline); Pathc Cast-AUWi Flag 1.45 (0-2.49); Squamous Epithelial 0-3 HPF (0-3)
[2018-01-06 01:16] LABS: Yeast-AUWi Flag 40.2 (0-25.0)
[2018-01-06] MEDS ORDERED: Ondansetron ODT 4 MG TAB SL PRN (01:21)
[2018-01-06] MEDS ORDERED: Ondansetron HCl/PF 4 MG/2 ML Vial IVP PRN (01:21)
[2018-01-06] MEDS ORDERED: Acetaminophen 325 MG TAB PO PRN (01:21)
[2018-01-06 01:30] LABS: Yeast-All Forms None Seen HPF (None Seen)
[2018-01-06 02:19] VITALS: BMI 27.0
[2018-01-06 02:57] LABS: Lactic Acid 1.3 mmol/L (0.5-2.2)
[2018-01-06] MEDS ORDERED: Heparin 1,000 UNITS/ML VIAL ONE (09:00)
[2018-01-06] MEDS ORDERED: Labetalol 100 MG TAB PO SCH (11:00)
[2018-01-06] MEDS: Piperacillin/Tazobactam 2.25 GM in Sodium Chloride 0.9% 100 ML IVPB SCH ×2 (11:37→18:42)
[2018-01-06] MEDS ORDERED: cloNIDine 0.1 MG TAB PO PRN (11:44)
[2018-01-06] MEDS: Nicotine 21 MG PATCH TOP SCH (13:36)
[2018-01-06] MEDS ORDERED: Vancomycin HCl 1 GM in Premix Bag 1 BAG IVPB SCH ×2 (16:30→18:45)
[2018-01-06] MEDS: Gemfibrozil 600 MG TAB PO SCH (16:39)
[2018-01-06] MEDS: hydrALAZINE 25 MG TAB PO SCH ×2 (16:39→21:18)
[2018-01-06] MEDS: Calcium Acetate 667 MG CAP PO SCH (17:39)
[2018-01-06] MEDS ORDERED: Vancomycin HCl 1.25 GM in Sodium Chloride 0.9% 250 ML 300 ML IVPB SCH (18:30)
[2018-01-06] MEDS ORDERED: Vancomycin HCl 750 MG in Sodium Chloride 0.9% 250 ML 250 ML IVPB SCH (18:45)
[2018-01-06] MEDS ORDERED: Vancomycin HCl 500 MG in Sodium Chloride 0.9% 100 ML IVPB SCH (18:45)
[2018-01-06] MEDS ORDERED: Vancomycin HCl 1.25 GM in Sodium Chloride 0.9% 250 ML 250 ML IVPB SCH (18:45)
[2018-01-06] MEDS ORDERED: HOLD VANCOMYCIN FOR LEVEL >20 FS SCH (18:45)
[2018-01-06] MEDS ORDERED: Lidocaine 1% w/Epinephrine 1:100K 20 ML VIAL ONE (19:50)
[2018-01-06] MEDS: Docusate 100 MG CAP PO SCH (21:18)
[2018-01-06] MEDS: NIFEdipine XL 60 MG TAB PO SCH (21:19)
[2018-01-06] MEDS: Atorvastatin Calcium 40 MG TAB PO SCH (21:19)
[2018-01-06] MEDS: Famotidine 20 MG TAB PO SCH (21:19)
[2018-01-06] MEDS: Labetalol 100 MG TAB PO SCH (21:19)
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
[2018-01-07] MEDS ORDERED: Potassium Chloride 20 MEQ TAB PO SCH (02:00)
--- NOTE | 2018-01-07 02:27 | OP ---
PREOPERATIVE DIAGNOSIS: Bacteremia Staphylococcus aureus with existing right internal jugular cuffed tunnel dialysis catheter. POSTOPERATIVE DIAGNOSIS: Bacteremia Staphylococcus aureus with existing right internal jugular cuffe d tunnel dialysis catheter. FINDINGS: Nonadherent cuff right IJ tunnel catheter. PROCEDURE: Removal of right IJ dialysis catheter cuffed tunneled. SURGEON: Bhavik Cormier M.D. ANESTHESIA: None. PROCEDURE: At the patient's bedside, had local anesthetic available and exit site prepared with alco hol. The catheter was not sutured in place. Gentle tugging suture, dislodged it without local anest hetic. There was no adherence to the cuff. Catheter and cuff removed intact and pressure held until hemostasis.
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
[2018-01-07] MEDS: Levothyroxine 150 MCG TAB PO SCH (05:06)
[2018-01-07 05:24] LABS: #Eosinphils 0.1 thou/uL (0.0-0.7); #Lymphocytes 1.5 thou/uL (1.20-3.40); #Monocytes 0.8 thou/uL (0.11-0.59); %Basophils 0.4 % (0.0-1.0); %Eosinophils 2.2 % (0.0-10.0); %Monocytes 12.8 % (0.0-10.0); %Neutrophils 61.6 % (42.0-75.0); Hemoglobin 7.4 g/dL (12.0-16.0); Mean Corpuscular Hemoglobin 29.4 pg (27.0-31.0); Mean Corpuscular Volume 91.9 fL (78.0-98.0); Mean Platelet Volume 6.7 fL (7.4-10.4); Platelet Count 313 thou/uL (130-400); RBC Distribution Width 14.6 % (11.5-14.5); Red Blood Cell (RBC) Count 2.51 mill/uL (4.20-5.40); White Blood Cell (WBC) Count 6.4 thou/uL (4.8-10.8)
[2018-01-07 05:35] LABS: Albumin 2.2 g/dL (3.4-4.8); Anion Gap 10 mmol/L (10-20); BUN (Urea Nitrogen) 13 mg/dL (9.8-20.1); Calc. Creatinine Clearance 26 mL/min (70-130); Calcium 8.1 mg/dL (7.8-10.44); Carbon Dioxide 30 mmol/L (23-31); Chloride 99 mmol/L (98-107); Estimated GFR-MDRD 22; Glucose 81 mg/dL (80-115); Sodium 136 mmol/L (136-145)
[2018-01-07 05:38] LABS: Phosphorus 1.6 mg/dL (2.3-4.7)
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
[2018-01-07] MEDS: Aspirin 81 mg Enteric Coated Tablet PO SCH (07:27)
[2018-01-07] MEDS: Zinc Sulfate 220 MG CAP PO SCH (08:36)
[2018-01-07] MEDS: hydrALAZINE 25 MG TAB PO SCH ×3 (08:37→21:23)
[2018-01-07] MEDS: NIFEdipine XL 60 MG TAB PO SCH ×2 (08:40→21:23)
[2018-01-07] MEDS: Calcitriol 0.25 MCG CAP PO SCH (08:40)
[2018-01-07] MEDS: Gemfibrozil 600 MG TAB PO SCH ×2 (08:43→15:10)
--- NOTE | 2018-01-07 08:47 | PRG ---
DATE OF SERVICE: 01/07/2018 Currently undergoing 24-hour urine creatinine clearance for reevaluation of renal function. PHYSICAL EXAMINATION: VITAL SIGNS: Afebrile with temperature 98.4, pulse 89, respiratory 16, O2 sat 99% with a blood press ure 167/62. HEENT: Unremarkable. CARDIOVASCULAR: First and second heart sounds were heard. RESPIRATORY: Clear to auscultation. DIGESTIVE: Revealed a benign abdomen with positive bowel sound. EXTREMITIES: No peripheral edema. SKIN: No new gross rash. LYMPHATICS: No peripheral lymphadenopathy. LABORATORY INVESTIGATION: Showed a creatinine of 2.6, phosphorus of 1.6. IMPRESSION: 1. End-stage renal disease on hemodialysis, currently undergoing 24-hour urine creatinine reevaluati on vis-a-vis the possibility of renal function to the point of not requiring dialysis. 2. Hypophosphatemia. 3. Anemia. PLAN: 1. Discontinue renal diet and start this patient on regular diet. 2. Discontinue phosphorus binders. 3. No fluid restriction. 4. Continue 24-hour urines to conclusion. 5. Dialysis catheter has been taken out. I will recommend not to replace the dialysis catheter unti l the decision is made on whether this patient is going to continue hemodialysis or not. 6. Further management will be dependent on the clinical course. We will defer the anemia management as it relates to possible blood transfusion to the primary team. However, we will prescribe erythropoiesis stimulating agent to this patient.
[2018-01-07] MEDS: Labetalol 100 MG TAB PO SCH ×2 (08:54→21:44)
[2018-01-07] MEDS ORDERED: Sodium Bicarbonate 2.5 MEQ/5 ML VIAL ONE (09:15)
[2018-01-07] MEDS ORDERED: Lidocaine 1% PF 5 ML VIAL ONE (09:15)
[2018-01-07] MEDS: Docusate 100 MG CAP PO SCH ×2 (09:24→21:22)
[2018-01-07] MEDS: Calcium Acetate 667 MG CAP PO SCH (09:24)
[2018-01-07] MEDS: Nicotine 21 MG PATCH TOP SCH (09:24)
--- NOTE | 2018-01-07 09:54 | HP ---
DATE OF ADMISSION: 01/06/2018 REASON/CHIEF COMPLAINT: Fever and cough. HISTORY OF PRESENT ILLNESS: Ms. Dias is a 67-year-old -Faro[place] female with past medical his tory of end-stage renal disease, hypertension, was noted to have high fever at the dialysis center. She had temperature of 101 and patient also has been having cough, productive of yellow sputum for fe w days and feeling weak as well. No chest pain. No shortness of breath. Patient was given vancomyc in, gentamicin during dialysis at the dialysis center and sent to the hospital. In the ER, patient w as evaluated and found to have a fever of 100 and had possible pneumonia on chest x-ray, so patient i s being admitted for further evaluation and management. PAST MEDICAL HISTORY: 1. End-stage renal disease on hemodialysis. 2. Hypertension. 3. Hyperlipidemia. 4. Status post multiple trauma including fracture of the right femur and left humerus and elbow. PAST SURGICAL HISTORY: Status post open reduction and internal fixation, left proximal humerus fract ure, and right supracondylar femur fracture. CURRENT MEDICATIONS: Patient was supposed to be on Pepcid 20 b.i.d., Synthroid 150 mcg daily, clonid ine 0.1 q.6 hours p.r.n., Lopid 600 b.i.d., tramadol 50 q.6 p.r.n., labetalol 200 mg b.i.d., hydralaz ine 25 t.i.d., Lipitor 80 mg daily, nicotine patch daily, Colace 100 mg b.i.d. ALLERGIES: No known drug allergies. FAMILY HISTORY: Nothing of interest. SOCIAL HISTORY: Patient lives with family. No history of smoking. No history of alcohol intake. REVIEW OF SYSTEMS: Cardiovascular: No chest pain. No shortness of breath. Respiratory: Has cough , fever. Gastrointestinal: No nausea, vomiting, abdominal pain. Genitourinary: No dysuria or pao turia. Central nervous system: No headache, no dizziness. PHYSICAL EXAMINATION: GENERAL: Patient is alert, awake, oriented x3. VITAL SIGNS: Temperature 100.7, pulse 89, respirations 20, blood pressure 115/69. HEENT: Head is normocephalic, atraumatic. Pupils equal and reactive to light. Nasopharynx is pale and dry. Hard and soft palate. No lesions seen. SKIN: Skin turgor decreased. NECK: Supple. No JVD. LUNGS: Bilateral air entry. No rales, no rhonchi. CARDIAC: S1, S2 regular. ABDOMEN: Soft, no distention, no tenderness. Normal bowel sounds present. RECTAL: Deferred. CENTRAL NERVOUS SYSTEM: No focal deficit. LABORATORY AND X-RAY FINDINGS: CBC showed WBC 12.2, hemoglobin 8.6, hematocrit 26, platelets 419. M etabolic panel shows sodium 139, potassium 3.1, chloride 32, BUN 5, creatinine 1.6, glucose 94. Lact ic acid 2.7, alkaline phosphatase 186. Urinalysis: WBC greater than 50 but bacteria rare. Chest x- ray shows nonspecific bibasilar pulmonary parenchymal opacities, left greater than right. Findings c ould suggest multifocal infection pneumonitis or aspiration. EKG shows normal sinus rhythm, no acute ST-T wave changes seen. ASSESSMENT: 1. Fever with leukocytosis with possible sepsis. 2. Questionable pneumonia. 3. End-stage renal disease on hemodialysis. 4. Hypertension, uncontrolled. 5. Chronic anemia. 6. Hypokalemia. 7. History of femur fracture and left humerus fracture, status post open reduction and internal fixa tion. PLAN: 1. Vital signs q.4 hours. 2. Activity: As tolerated. 3. Allergies: NKDA. 4. Hep-Lock. 5. Vancomycin 1 gram IV piggyback daily. 6. Continue home medication. 7. Renal diet. 8. Nephrology consult. 9. Consult Dr. Roman.
--- NOTE | 2018-01-07 11:37 | SPC ---
RIGHT UPPER EXTREMITY FISTULOGRAM: HISTORY: Evaluate fistulogram for possible usage. The patient had a previous HemoSplit dialysis catheter that became infected and has been subsequently removed. COMPARISON: None. EXPOSURE: 1.7 minutes. 14,333 mGy*^cm2. FINDINGS: The right arm was prepped and draped in sterile fashion. 1% Lidocaine, buffered with sodium bicarbon ate used for local anesthesia. Under ultrasound guidance, a micropuncture needle was used to cannula te the venous outflow tract. A 4 Maltese sheath was advanced. Through this 4 Maltese sheath, a right upper extremity fistulogram was performed. There appears to be patency of the venous outflow tract. There is no significant stenosis. The supe rior vena cava is unremarkable. The venous outflow tract appears to be via the basilic vein. There are no significant collaterals. Some collateral flow is noted when the patient is undergoing manual pressure as well as inflation of a blood pressure cuff. Manual compression inflation of the blood pr essure cuff was attempted to allow for reflux of contrast. Despite multiple attempts, adequate evalu ation of the arterial anastomosis was not possible. Given multiple attempts were made, additional at tempts were, therefore, not performed. Findings were conveyed to Dr. Cormier. IMPRESSION: Patent right upper extremity fistula via a basilic outflow tract. CODE CR POS: RUPERT
[2018-01-07] MEDS: Epoetin (ESRD) 10,000 UNITS/ML VIAL SC SCH (15:23)
[2018-01-07] MEDS ORDERED: guaiFENesin/Dextromethorphan 10 ML UDCUP PO PRN (18:08)
[2018-01-07] MEDS ORDERED: Guaifenesin DM 100-10/5 ML UDCUP PO PRN (18:11)
[2018-01-07 19:55] LABS: Body Surface Area 1.92
[2018-01-07 19:57] LABS: Creatinine, Urine 58.05 mg/dL (47-110)
[2018-01-07 19:57] LABS: 24 Hr Creatinine 428.33 mg/24 hr (710-1650); Creatinine, Urine 57.11 mg/dL (47-110)
[2018-01-07] MEDS: Atorvastatin Calcium 40 MG TAB PO SCH (21:21)
[2018-01-07] MEDS: Famotidine 20 MG TAB PO SCH (21:22)
--- NOTE | 2018-01-08 00:01 | PRG ---
DATE OF SERVICE: 01/07/2018 SUBJECTIVE: Ms. Dias is feeling better after removal of the hemodialysis catheter. She had evaluation of the fistula, have to be approximated to the skin. She will likely need a repositioning of hemodialysis catheter at least for the next few weeks before the fistula is ready for use. No back pain , no cough or sputum production, no abdominal pain or diarrhea. PHYSICAL EXAMINATION: VITAL SIGNS: T-max 98.4. LUNGS: Clear. Right subclavian area with the wound site of the previous catheter. HEART: S1, S2, regular rate. ABDOMEN: Soft, not distended. EXTREMITIES: Moves extremities equally. LABORATORY DATA: Microbiology with Staph aureus which appears to be a methicillin-sensitive strain. ASSESSMENT AND DISCUSSION: Hypertension and history of prior cerebrovascular accident, end-stage renal disease of uncertain etiology, on hemodialysis with tunneled catheter. HD access became infected with MSSA with bacteremia, catheter has been removed. No Other sites of involvement are not apparent at this time. After discharge, the patient to continue on vancomycin sliding scale at dialysis for almost 4 weeks and date of therapy is calculated around . MTDD
[2018-01-08 05:26] LABS: ALT (SGPT) 10 U/L (8-55); AST (SGOT) 25 U/L (5-34); Albumin 2.2 g/dL (3.4-4.8); Alkaline Phosphatase 156 U/L (40-150); Anion Gap 10 mmol/L (10-20); BUN (Urea Nitrogen) 16 mg/dL (9.8-20.1); Bilirubin, Total 0.4 mg/dL (0.2-1.2); Calc. Creatinine Clearance 24 mL/min (70-130); Calcium 8.1 mg/dL (7.8-10.44); Carbon Dioxide 28 mmol/L (23-31); Chloride 100 mmol/L (98-107); Estimated GFR-MDRD 20; Globulin 3.3 g/dL (2.4-3.5); Glucose 91 mg/dL (80-115); Potassium 3.1 mmol/L (3.5-5.1); Protein, Total 5.5 g/dL (6.0-8.3); Sodium 135 mmol/L (136-145)
[2018-01-08] MEDS: Levothyroxine 150 MCG TAB PO SCH (05:39)
[2018-01-08 06:07] LABS: #Eosinphils 0.1 thou/uL (0.0-0.7); #Lymphocytes 1.5 thou/uL (1.20-3.40); #Monocytes 0.7 thou/uL (0.11-0.59); #Neutrophils 3.1 thou/uL (1.40-6.50); %Basophils 0.5 % (0.0-1.0); %Eosinophils 2.1 % (0.0-10.0); %Lymphocytes 26.8 % (21.0-51.0); %Monocytes 13.1 % (0.0-10.0); %Neutrophils 57.5 % (42.0-75.0); Hemoglobin 7.7 g/dL (12.0-16.0); Mean Corpuscular HGB CONC 32.6 g/dL (32.0-36.0); Mean Corpuscular Hemoglobin 29.6 pg (27.0-31.0); Mean Corpuscular Volume 90.9 fL (78.0-98.0); Mean Platelet Volume 6.1 fL (7.4-10.4); Platelet Count 359 thou/uL (130-400); RBC Distribution Width 14.6 % (11.5-14.5); Red Blood Cell (RBC) Count 2.59 mill/uL (4.20-5.40); White Blood Cell (WBC) Count 5.4 thou/uL (4.8-10.8)
[2018-01-08] MEDS: Labetalol 100 MG TAB PO SCH ×3 (08:15→21:24)
[2018-01-08] MEDS: Calcitriol 0.25 MCG CAP PO SCH (08:15)
[2018-01-08] MEDS: NIFEdipine XL 60 MG TAB PO SCH ×3 (08:15→21:24)
[2018-01-08] MEDS: Zinc Sulfate 220 MG CAP PO SCH (08:16)
[2018-01-08] MEDS: Aspirin 81 mg Enteric Coated Tablet PO SCH (08:16)
[2018-01-08] MEDS: hydrALAZINE 25 MG TAB PO SCH ×4 (08:16→21:23)
[2018-01-08] MEDS: Docusate 100 MG CAP PO SCH ×3 (08:16→21:23)
[2018-01-08] MEDS: Gemfibrozil 600 MG TAB PO SCH ×3 (08:16→16:02)
[2018-01-08] MEDS ORDERED: Potassium Chloride 20 MEQ TAB PO SCH (09:30)
[2018-01-08] MEDS: Potassium Chloride 20 MEQ TAB PO SCH ×4 (09:45→17:30)
--- NOTE | 2018-01-08 12:29 | PRG ---
DATE OF PROGRESS NOTE: 01/07/2018 Shelby Dias's fistulogram today revealed basilic vein outflow, cephalic vein outflow obstructed. Meng escalona Wednesday hemodialysis catheter placement and right arm basilic vein transposition fistula. She und erstands the risks and benefits of surgery and consents. Questions were answered.
[2018-01-08] MEDS: Nicotine 21 MG PATCH TOP SCH (12:38)
[2018-01-08] MEDS: Atorvastatin Calcium 40 MG TAB PO SCH (21:24)
[2018-01-08] MEDS: Famotidine 20 MG TAB PO SCH (21:24)
[2018-01-09] MEDS: traMADol HCl 50 MG TAB PO PRN (04:02)
[2018-01-09 04:45] LABS: #Basophils 0.1 thou/uL (0.0-0.2); #Eosinphils 0.2 thou/uL (0.0-0.7); #Lymphocytes 2.2 thou/uL (1.20-3.40); #Monocytes 0.9 thou/uL (0.11-0.59); #Neutrophils 3.5 thou/uL (1.40-6.50); %Basophils 0.7 % (0.0-1.0); %Eosinophils 2.7 % (0.0-10.0); %Lymphocytes 31.8 % (21.0-51.0); %Monocytes 13.1 % (0.0-10.0); %Neutrophils 51.7 % (42.0-75.0); Hemoglobin 9.7 g/dL (12.0-16.0); Mean Corpuscular HGB CONC 33.5 g/dL (32.0-36.0); Mean Corpuscular Hemoglobin 30.4 pg (27.0-31.0); Mean Corpuscular Volume 90.8 fL (78.0-98.0); Mean Platelet Volume 6.4 fL (7.4-10.4); Platelet Count 404 thou/uL (130-400); RBC Distribution Width 14.1 % (11.5-14.5); White Blood Cell (WBC) Count 6.8 thou/uL (4.8-10.8)
[2018-01-09 04:55] LABS: Anion Gap 10 mmol/L (10-20); BUN (Urea Nitrogen) 14 mg/dL (9.8-20.1); Calc. Creatinine Clearance 23 mL/min (70-130); Calcium 8.2 mg/dL (7.8-10.44); Carbon Dioxide 24 mmol/L (23-31); Chloride 105 mmol/L (98-107); Estimated GFR-MDRD 19; Glucose 81 mg/dL (80-115); Potassium 3.6 mmol/L (3.5-5.1); Sodium 135 mmol/L (136-145)
[2018-01-09 05:03] LABS: Phosphorus 1.5 mg/dL (2.3-4.7)
[2018-01-09] MEDS: Levothyroxine 150 MCG TAB PO SCH (06:28)
[2018-01-09] MEDS: Calcitriol 0.25 MCG CAP PO SCH (08:56)
[2018-01-09] MEDS: Gemfibrozil 600 MG TAB PO SCH ×2 (08:56→15:34)
[2018-01-09] MEDS: Zinc Sulfate 220 MG CAP PO SCH (08:57)
[2018-01-09] MEDS: Aspirin 81 mg Enteric Coated Tablet PO SCH (08:57)
[2018-01-09] MEDS: NIFEdipine XL 60 MG TAB PO SCH ×2 (08:57→21:10)
[2018-01-09] MEDS: hydrALAZINE 25 MG TAB PO SCH ×3 (08:57→21:10)
[2018-01-09] MEDS: Labetalol 100 MG TAB PO SCH ×2 (08:57→21:10)
[2018-01-09] MEDS: Docusate 100 MG CAP PO SCH ×2 (10:32→21:11)
[2018-01-09] MEDS: Nicotine 21 MG PATCH TOP SCH (11:59)
--- NOTE | 2018-01-09 19:19 | PRG ---
DATE OF SERVICE: 01/09/2018 SUBJECTIVE: The patient seen and examined today with no new complaints; however, the patient seems t o be very reluctant to get on to dialysis and undergo any form of procedure towards that modality of treatment, did not communicate this with me. Today, the patient expressed no desire whatsoever to ge t on to dialysis and does not desire to undergo any form of procedure related to this type of treatme nt, also discussing with the daughter and the patient. They are more or less leaning towards holding off on establishing dialysis access for now; otherwise, the patient denies any new complaint except not liking the kind of diet that she is receiving, noted with the following vital signs. PHYSICAL EXAMINATION: VITAL SIGNS: Afebrile with temperature 98.9, pulse 86, respiratory rate 16, blood pressure 115/79, O 2 sat of 99%. HEENT: Unremarkable. CARDIOVASCULAR SYSTEM: First and second heart sounds were heard. RESPIRATORY SYSTEM: Clear to auscultation. DIGESTIVE SYSTEM: Revealed a benign abdomen with positive bowel sounds. EXTREMITIES: No peripheral edema. SKIN: No new gross rash. LYMPHATICS: No peripheral lymphadenopathy. LABORATORY INVESTIGATIONS: White count 6.8, hemoglobin 9.7 with platelet 404,000. Chemistry showed a sodium of 135, potassium 3.6, bicarbonate of 24, creatinine of 2.92, and phosphorus of 1.5. IMPRESSION: 1. Chronic kidney disease stage 5/4, based on creatinine clearance stage 5. 2. Anemia in the context of chronic kidney disease. 3. Sepsis in the context of line infection with Staphylococcal bacteremia. 4. Possible Clostridium difficile colitis. PLAN: 1. As documented above, the patient not eager to proceed with dialysis at this point and does not wa nt to undergo any form of procedure to that effect. As it stands now, there is no emergent indicatio n for hemodialysis. The patient's creatinine seems to be plateauing around 2.9 though surprisingly t he creatinine clearance based on 24-hour urine came back at 10, not really in keeping with what the [facility] chemistry is suggesting. We will continue with erythropoiesis stimulating agent to address the anemia of chronic kidney disease in this patient. 2. Renally dose all medications per low GFR and avoid potentially nephrotoxic agents. 3. It might be beneficial to liberalize this patient's diet in times of consistency. 4. Further management will be dependent on the clinical course.
[2018-01-09] MEDS: Atorvastatin Calcium 40 MG TAB PO SCH (21:09)
[2018-01-09] MEDS: Famotidine 20 MG TAB PO SCH (21:10)
[2018-01-09] MEDS ORDERED: Vancomycin HCl 25 MG/ML Oral PO SCH (23:30)
[2018-01-10 04:57] LABS: Anion Gap 11 mmol/L (10-20); BUN (Urea Nitrogen) 14 mg/dL (9.8-20.1); Calc. Creatinine Clearance 23 mL/min (70-130); Calcium 8.2 mg/dL (7.8-10.44); Carbon Dioxide 23 mmol/L (23-31); Chloride 107 mmol/L (98-107); Estimated GFR-MDRD 19; Glucose 85 mg/dL (80-115); Potassium 3.8 mmol/L (3.5-5.1); Sodium 137 mmol/L (136-145)
[2018-01-10 05:00] LABS: #Basophils 0.1 thou/uL (0.0-0.2); #Eosinphils 0.3 thou/uL (0.0-0.7); #Lymphocytes 2.8 thou/uL (1.20-3.40); #Monocytes 0.9 thou/uL (0.11-0.59); #Neutrophils 3.3 thou/uL (1.40-6.50); %Basophils 0.9 % (0.0-1.0); %Eosinophils 3.9 % (0.0-10.0); %Lymphocytes 38.3 % (21.0-51.0); %Monocytes 11.6 % (0.0-10.0); %Neutrophils 45.2 % (42.0-75.0); Hemoglobin 9.8 g/dL (12.0-16.0); Mean Corpuscular HGB CONC 32.8 g/dL (32.0-36.0); Mean Corpuscular Volume 91.3 fL (78.0-98.0); Mean Platelet Volume 6.4 fL (7.4-10.4); Platelet Count 451 thou/uL (130-400); RBC Distribution Width 14.4 % (11.5-14.5); Red Blood Cell (RBC) Count 3.27 mill/uL (4.20-5.40); White Blood Cell (WBC) Count 7.3 thou/uL (4.8-10.8)
[2018-01-10] MEDS: Levothyroxine 150 MCG TAB PO SCH (05:54)
[2018-01-10] MEDS: Vancomycin HCl 25 MG/ML Oral PO SCH ×4 (08:46→20:48)
[2018-01-10] MEDS: Labetalol 100 MG TAB PO SCH ×2 (08:49→20:49)
[2018-01-10] MEDS: hydrALAZINE 25 MG TAB PO SCH ×3 (08:49→20:50)
[2018-01-10] MEDS: NIFEdipine XL 60 MG TAB PO SCH ×3 (08:50→20:50)
[2018-01-10] MEDS: Zinc Sulfate 220 MG CAP PO SCH (08:51)
[2018-01-10] MEDS: Aspirin 81 mg Enteric Coated Tablet PO SCH (08:51)
[2018-01-10] MEDS: Gemfibrozil 600 MG TAB PO SCH ×2 (08:51→17:31)
[2018-01-10] MEDS: Calcitriol 0.25 MCG CAP PO SCH (08:51)
[2018-01-10] MEDS: Docusate 100 MG CAP PO SCH ×2 (08:52→20:42)
[2018-01-10] MEDS: Nicotine 21 MG PATCH TOP SCH (12:52)
[2018-01-10] MEDS: traMADol HCl 50 MG TAB PO PRN (15:33)
--- NOTE | 2018-01-10 18:15 | PRG ---
DATE OF SERVICE: 01/10/2018 HISTORY: Ms. Dias sitting up in bed, appears in no distress. Dr. Sharon Wise has recommend ed withholding dialysis for now, so she does not have an access for dialysis. She denies any chest p ain, no abdominal pain or diarrhea. OBJECTIVE: VITAL SIGNS: T-max is 98.9. LUNGS: Clear. HEART: S1, S2, regular rate. ABDOMEN: Soft, not distended. No back tenderness. No other joint tenderness. LABORATORY DATA: White cell count 7.3, hemoglobin 9.8, platelets 451, sodium 137, creatinine 2.96, G FR at 19, albumin 2.2. We have Staph aureus retrieved from two sets of blood cultures. It is a meth icillin-susceptible strain. ASSESSMENT: Hypertension, prior cerebrovascular accident, end-stage renal disease of uncertain etiol ogy, previously on hemodialysis. DISCUSSION: The HD has been withheld now and we need to continue treating the MSSA bacteremia. Idea lly, one would like to reestablish IV access for administration of either vancomycin or dose adjusted cefazolin. The alternate approach would be to give her oral Keflex 500 mg twice daily and give her for 4 weeks with followup in my clinic to make sure that she does not have recrudescence of inflammat ory process with distant dissemination. Again, the standard of care is to continue IV therapy for at least 2-4 weeks. By her case that would imply the need for accessing a central line, so I would be willing to try the oral route with Keflex again 500 twice daily to be continued for 4 weeks in total. Follow up in my clinic.
[2018-01-10] MEDS ORDERED: Acetaminophen/Codeine 30-300mg Tablet PO PRN (18:34)
[2018-01-10] MEDS: Atorvastatin Calcium 40 MG TAB PO SCH (20:49)
[2018-01-10] MEDS: Famotidine 20 MG TAB PO SCH (20:50)
[2018-01-11] MEDS: Levothyroxine 150 MCG TAB PO SCH (05:41)
--- NOTE | 2018-01-11 05:42 | PRG ---
DATE OF SERVICE: 01/10/2018 SUBJECTIVE: The patient was seen and examined with no new complaints. Noted with the following nadege l signs. OBJECTIVE: VITAL SIGNS: Afebrile with temperature 98.9, pulse 81, respiratory rate of 18, O2 sat 97% with a blo od pressure of 159/78. HEENT: Unremarkable with moist oral mucosa. No conjunctival injection or icterus. NECK: Supple CARDIOVASCULAR SYSTEM: First and second heart sounds were heard. RESPIRATORY SYSTEM: Clear to auscultation. DIGESTIVE SYSTEM: Revealed a benign abdomen with positive bowel sounds. EXTREMITIES: No peripheral edema. SKIN: No new gross rash. LYMPHATICS: No peripheral lymphadenopathy. LABORATORY INVESTIGATIONS: Showed a hemoglobin of 9.8. Chemistry showed a creatinine of 2.96, BUN o f 14, potassium 3.8. IMPRESSION: 1. Chronic kidney disease, stage 5, based on 24-hour urine creatinine clearance based on estim ated GFR. 2. Anemia of chronic kidney disease. 3. Sepsis in the context of possible aspiration pneumonitis. PLAN: 1. The patient on broad spectrum antibiotics to address the sepsis. 2. Encourage the patient to eat more food. 3. We will continue to monitor the renal function vis-?-vis dialysis access is needed as the p atient is very reluctant to undergo this treatment of dialysis. 4. Further management to be dependent on the clinical course.
--- NOTE | 2018-01-11 08:18 | RAD ---
LEFT HUMERUS 2 VIEWS: HISTORY: Followup humerus fracture. COMPARISON: Comparison is made to films of 10/23/17. That exam revealed a comminuted displaced fracture of the pr oximal left humerus. FINDINGS: On today's exam, the comminuted displaced fracture of the proximal left humerus was again noted. The re is some callus formation present; however, the fracture lines and fragments are readily visible in dicating incomplete healing. A metallic screw has been placed in the distal humerus. POS: [facility]
[2018-01-11] MEDS: Vancomycin HCl 25 MG/ML Oral PO SCH ×4 (08:35→20:17)
[2018-01-11] MEDS: Zinc Sulfate 220 MG CAP PO SCH (08:36)
[2018-01-11] MEDS: Calcitriol 0.25 MCG CAP PO SCH (08:36)
[2018-01-11] MEDS: Labetalol 100 MG TAB PO SCH ×2 (08:36→20:16)
[2018-01-11] MEDS: Docusate 100 MG CAP PO SCH ×2 (08:37→20:15)
[2018-01-11] MEDS: Aspirin 81 mg Enteric Coated Tablet PO SCH (08:37)
[2018-01-11] MEDS: hydrALAZINE 25 MG TAB PO SCH ×3 (08:37→20:15)
[2018-01-11] MEDS: Gemfibrozil 600 MG TAB PO SCH ×2 (08:37→15:07)
[2018-01-11] MEDS: Nicotine 21 MG PATCH TOP SCH (12:08)
--- NOTE | 2018-01-11 15:02 | PRG ---
DATE OF SERVICE: 01/11/2018 SUBJECTIVE: The patient was seen and examined and noted with the following vital signs. OBJECTIVE: VITAL SIGNS: Afebrile with temperature of 98.5, pulse 78, respiratory rate of 16, O2 sat of 99% with blood pressure 116/60. HEENT: Unremarkable with moist oral mucosa. NECK: Supple. No conjunctival injection or icterus. CARDIOVASCULAR: First and second heart sounds were heard. RESPIRATORY: Clear to auscultation. DIGESTIVE: Revealed a benign abdomen with positive bowel sounds. EXTREMITIES: No peripheral edema. SKIN: No new gross rash. LYMPHATICS: No peripheral lymphadenopathy. LABORATORY DATA: No laboratory investigation today. IMPRESSION: 1. Advanced chronic kidney disease, temporarily off dialysis. 2. Line infection with sepsis, on treatment. 3. Clostridium difficile colitis, on treatment. 4. Anemia of chronic kidney disease. PLAN: 1. Renal function panel to reevaluate this patient's renal function the need for renal replace ment therapy. 2. Not very clear at this yet when the patient will require hemodialysis, but we will continue to mo nitor this patient very closely. 3. Renally dose all medications and avoid potentially nephrotoxic agents. 4. We will consider appetite stimulant to enable this patient to eat appropriately. 5. Further management to be dependent on the clinical course.
[2018-01-11] MEDS: Famotidine 20 MG TAB PO SCH (20:15)
[2018-01-11] MEDS: Atorvastatin Calcium 40 MG TAB PO SCH (20:15)
[2018-01-11] MEDS: NIFEdipine XL 60 MG TAB PO SCH (20:16)
[2018-01-11] MEDS ORDERED: Cephalexin 250 MG CAP PO SCH ×2 (21:00→22:00)
[2018-01-12] MEDS: Levothyroxine 150 MCG TAB PO SCH (05:46)
[2018-01-12] MEDS: Labetalol 100 MG TAB PO SCH ×2 (08:05→20:58)
[2018-01-12] MEDS: Vancomycin HCl 25 MG/ML Oral PO SCH ×4 (08:05→20:57)
[2018-01-12] MEDS: Cephalexin 250 MG CAP PO SCH ×2 (08:06→20:58)
[2018-01-12] MEDS: NIFEdipine XL 60 MG TAB PO SCH ×2 (08:06→20:58)
[2018-01-12] MEDS: Calcitriol 0.25 MCG CAP PO SCH (08:06)
[2018-01-12] MEDS: hydrALAZINE 25 MG TAB PO SCH ×3 (08:06→20:58)
[2018-01-12] MEDS: Aspirin 81 mg Enteric Coated Tablet PO SCH (08:06)
[2018-01-12] MEDS: Docusate 100 MG CAP PO SCH ×2 (08:06→20:59)
[2018-01-12] MEDS: Gemfibrozil 600 MG TAB PO SCH ×2 (08:06→16:26)
[2018-01-12] MEDS: Zinc Sulfate 220 MG CAP PO SCH (08:09)
[2018-01-12 09:07] LABS: #Basophils 0.1 thou/uL (0.0-0.2); #Eosinphils 0.5 thou/uL (0.0-0.7); #Lymphocytes 2.1 thou/uL (1.20-3.40); #Monocytes 0.6 thou/uL (0.11-0.59); #Neutrophils 4.3 thou/uL (1.40-6.50); %Basophils 1.1 % (0.0-1.0); %Eosinophils 6.1 % (0.0-10.0); %Lymphocytes 27.3 % (21.0-51.0); %Monocytes 8.4 % (0.0-10.0); Hemoglobin 10.5 g/dL (12.0-16.0); Mean Corpuscular HGB CONC 32.6 g/dL (32.0-36.0); Mean Corpuscular Volume 91.9 fL (78.0-98.0); Mean Platelet Volume 6.1 fL (7.4-10.4); Platelet Count 613 thou/uL (130-400); RBC Distribution Width 15.1 % (11.5-14.5); White Blood Cell (WBC) Count 7.6 thou/uL (4.8-10.8)
[2018-01-12 09:15] LABS: Albumin 2.5 g/dL (3.4-4.8); Anion Gap 11 mmol/L (10-20); BUN (Urea Nitrogen) 16 mg/dL (9.8-20.1); BUN/Creatinine Ratio 5.48; Calc. Creatinine Clearance 23 mL/min (70-130); Carbon Dioxide 23 mmol/L (23-31); Chloride 108 mmol/L (98-107); Estimated GFR-MDRD 19; Glucose 75 mg/dL (80-115); Phosphorus 3.3 mg/dL (2.3-4.7); Potassium 4.9 mmol/L (3.5-5.1); Sodium 137 mmol/L (136-145)
--- NOTE | 2018-01-12 11:28 | PRG ---
DATE OF SERVICE: 01/08/2018 SUBJECTIVE: The patient seen and examined today and noted with the following vital signs. PHYSICAL EXAMINATION: VITAL SIGNS: Afebrile with temperature 99.3, pulse 84, respiratory rate 16, satting 98%, blood press ure 174/72. HEENT: Unremarkable. CARDIOVASCULAR SYSTEM: First and second heart sounds were heard. RESPIRATORY SYSTEM: Clear to auscultation. DIGESTIVE SYSTEM: Revealed a benign abdomen with positive bowel sounds. EXTREMITIES: No peripheral edema. . LYMPHATICS: No peripheral lymphadenopathy. LABORATORY INVESTIGATIONS: , sodium of 135, potassium 3.1. IMPRESSION: 1. End-stage renal disease on hemodialysis creatinine of 2.9; however . 2. Anemia . 3. Hypokalemia. 4. Sepsis. PLAN: 1. . 2. Replete potassium with potassium supplementation. 3. Will transfuse this patient . 4. Further management will be dependent on the clinical course.
[2018-01-12] MEDS: Nicotine 21 MG PATCH TOP SCH (12:05)
[2018-01-12] MEDS: Atorvastatin Calcium 40 MG TAB PO SCH (20:58)
[2018-01-12] MEDS: Famotidine 20 MG TAB PO SCH (20:59)
[2018-01-13] MEDS: Levothyroxine 150 MCG TAB PO SCH (05:00)
--- NOTE | 2018-01-13 07:16 | CON ---
DATE OF SERVICE: 01/13/2018 TIME: 7 a.m. HISTORY OF PRESENT ILLNESS: Ms. Dias is a 67-year-old female currently on chronic dialysis, curren tly admitted for sepsis, but with difficult portal sites. The patient has a history of trauma of the right femur and left proximal humerus and left distal elbow, proximal humerus nonunion. The patient is currently in the hospital being treated by Medicine. I discussed with the primary team that the patient is not a surgical candidate at this time given her sepsis. She is going to require reverse s houlder arthroplasty and must be cleared of that. I need to get the patient ambulating with the righ t lower extremity before I proceed with her left reverse shoulder arthroplasty. Also need to get the patient stably dialyzed before proceeding. The patient will be seen back in my office at the end of this month for a 12 week follow up so can begin weightbearing to right lower extremity.
--- NOTE | 2018-01-13 07:40 | PRG ---
DATE OF SERVICE: 01/12/2018 SUBJECTIVE: Patient seen and examined, seems to be feeling okay with no new complaint noted with the following vital signs. PHYSICAL EXAMINATION: VITAL SIGNS: Afebrile with temperature 98.4, pulse 74, respiratory 18, O2 sat 96%, blood pressure 14 5/62. HEENT: Unremarkable with moist oral mucosa. NECK: Supple. No conjunctival injection or icterus. CARDIOVASCULAR SYSTEM: First and second heart sounds were heard. RESPIRATORY SYSTEM: Clear to auscultation anteriorly. DIGESTIVE SYSTEM: Revealed a benign abdomen. EXTREMITIES: No peripheral edema. LABORATORY INVESTIGATION: Showed hemoglobin 10.5. Chemistry: Creatinine 2.92. IMPRESSION: History of end-stage renal disease on hemodialysis seems to have experienced some renal recovery. .
[2018-01-13] MEDS: Labetalol 100 MG TAB PO SCH ×2 (08:32→20:52)
[2018-01-13] MEDS: Aspirin 81 mg Enteric Coated Tablet PO SCH (08:32)
[2018-01-13] MEDS: Zinc Sulfate 220 MG CAP PO SCH (08:32)
[2018-01-13] MEDS: Gemfibrozil 600 MG TAB PO SCH ×2 (08:32→16:28)
[2018-01-13] MEDS: Vancomycin HCl 25 MG/ML Oral PO SCH ×4 (08:32→20:52)
[2018-01-13] MEDS: Calcitriol 0.25 MCG CAP PO SCH (08:33)
[2018-01-13] MEDS: NIFEdipine XL 60 MG TAB PO SCH ×2 (08:33→20:53)
[2018-01-13] MEDS: hydrALAZINE 25 MG TAB PO SCH ×4 (08:33→20:53)
[2018-01-13] MEDS: Docusate 100 MG CAP PO SCH ×2 (08:33→20:54)
[2018-01-13] MEDS: Cephalexin 250 MG CAP PO SCH ×2 (08:33→20:53)
[2018-01-13] MEDS: Nicotine 21 MG PATCH TOP SCH (13:24)
--- NOTE | 2018-01-13 13:51 | RAD ---
MODIFIED BARIUM SWALLOW WITH SPEECH THERAPIST: History: Eating difficulties, dysphagia. Exposure: 2.5 minutes of fluoroscopic time; 1.096 mGy*cm^2. FINDINGS/IMPRESSION: A modified barium swallow was performed by the speech therapist. No aspiration or penetration seen du ring the examination. Please see dedicated speech therapy report for specific findings and recommenda tions. POS: RUPERT
--- NOTE | 2018-01-13 17:04 | PRG ---
DATE OF SERVICE: 01/13/2018 SUBJECTIVE: The patient was seen and examined. Patient seems to be refusing all lab draws as well a s her medications. In any case, the patient noted with the following vital signs. PHYSICAL EXAMINATION: VITAL SIGNS: Afebrile with temperature 98.3, pulse 84, respiratory rate of 18, . HEENT: Unremarkable with moist oral mucosa. Neck is supple. No conjunctival injection or icterus. CARDIOVASCULAR SYSTEM: First and second heart sounds heard. RESPIRATORY SYSTEM: Clear to auscultation. DIGESTIVE SYSTEM: Revealed a benign abdomen with positive bowel sounds. EXTREMITIES: No peripheral edema. SKIN: No new gross rash. LYMPHATICS: No peripheral lymphadenopathy. IMPRESSION: 1. Renal function seems to have plateaued around creatinine of 2.9, which induced to be possibly sta ge 4 chronic kidney disease. In any case, the patient feels reluctant to consider any modality of tr eatment. 2. Management to be dependent on the clinical course.
[2018-01-13] MEDS: Atorvastatin Calcium 40 MG TAB PO SCH (20:54)
[2018-01-13] MEDS: Famotidine 20 MG TAB PO SCH (20:54)
[2018-01-13 22:18] LABS: Albumin 2.6 g/dL (3.4-4.8); Anion Gap 13 mmol/L (10-20); BUN (Urea Nitrogen) 16 mg/dL (9.8-20.1); BUN/Creatinine Ratio 5.56; Calc. Creatinine Clearance 24 mL/min (70-130); Calcium 7.6 mg/dL (7.8-10.44); Carbon Dioxide 19 mmol/L (23-31); Chloride 109 mmol/L (98-107); Estimated GFR-MDRD 20; Glucose 104 mg/dL (80-115); Phosphorus 3.1 mg/dL (2.3-4.7); Potassium 4.7 mmol/L (3.5-5.1); Sodium 136 mmol/L (136-145)
[2018-01-14] MEDS: Levothyroxine 150 MCG TAB PO SCH (06:04)
[2018-01-14] MEDS: Labetalol 100 MG TAB PO SCH (08:00)
[2018-01-14] MEDS: Cephalexin 250 MG CAP PO SCH (08:03)
[2018-01-14] MEDS: hydrALAZINE 25 MG TAB PO SCH (08:05)
[2018-01-14] MEDS: Vancomycin HCl 25 MG/ML Oral PO SCH ×2 (08:05→12:56)
[2018-01-14] MEDS: NIFEdipine XL 60 MG TAB PO SCH (08:07)
[2018-01-14] MEDS: Aspirin 81 mg Enteric Coated Tablet PO SCH (08:07)
[2018-01-14] MEDS: Calcitriol 0.25 MCG CAP PO SCH (08:07)
[2018-01-14] MEDS: Gemfibrozil 600 MG TAB PO SCH (08:08)
[2018-01-14] MEDS: Docusate 100 MG CAP PO SCH (08:10)
[2018-01-14] MEDS: Zinc Sulfate 220 MG CAP PO SCH (08:10)
--- NOTE | 2018-01-14 09:25 | PRG ---
DATE OF SERVICE: 01/14/2018 SUBJECTIVE: She is sitting up in bed. She denies any headaches, no shortness of breath, no chest pa in, no abdominal pain or diarrhea. She has been afebrile. Does not have any access right now. OBJECTIVE: LUNGS: Clear. HEART: S1, S2, regular rate. ABDOMEN: Soft, not distended. LABORATORY DATA: White cell count 7.6, hemoglobin 10.5, platelets 613. She needs repeat blood cultu res to verify resolution of bacteremia. She is currently receiving cephalexin p.o. She has develope d diarrhea and a C. diff test was positive. She is on oral vancomycin. 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 Ideally, one would like to administ er IV vancomycin or cefazolin for another 4 weeks, but the patient has declined replacement of the ca theter. We will continue Keflex for 4 weeks. Now, she has developed complication of C. diff and we will have to continue on oral vancomycin for the duration of the Keflex therapy and date of therapy i s 02/09. Follow up blood cultures. When she has fever again, repeat blood cultures in addition. Mo nitor for distant sites of dissemination including spine, long bones, joints, and lungs.
[2018-01-14] MEDS: Epoetin (ESRD) 10,000 UNITS/ML VIAL SC SCH (10:26)
[2018-01-14 12:17] VITALS: BP 134/48; TEMP 98.5
[2018-01-14] MEDS: Nicotine 21 MG PATCH TOP SCH (12:57)
== END 2018-01-14 15:02 | disposition home or self-care (01) | DRG 314 ==
LOC: ERS 21:18 → T4-A 01-06 00:22
PROVIDERS: ADMIT Internal Medicine; ATTEND Internal Medicine
PROC: 0JPVXXZ Removal of Tunneled Vascular Access Device from Upper Extremity Subcutaneous Tissue and Fascia, External Approach (ICD-10-PCS; principal; 2018-01-06)
DX: T80.211A Bloodstream infection due to central venous catheter, initial encounter (principal); A41.01 Sepsis due to Methicillin susceptible Staphylococcus aureus; N18.6 End stage renal disease; A04.72 Enterocolitis due to Clostridium difficile, not specified as recurrent; I69.354 Hemiplegia and hemiparesis following cerebral infarction affecting left non-dominant side; I12.0 Hypertensive chronic kidney disease with stage 5 chronic kidney disease or end stage renal disease; N25.81 Secondary hyperparathyroidism of renal origin; Z99.2 Dependence on renal dialysis; D63.1 Anemia in chronic kidney disease; E83.39 Other disorders of phosphorus metabolism; F17.210 Nicotine dependence, cigarettes, uncomplicated
CPT/HCPCS: 36415; 36430; 36901; 51701; 71045; 74230; 80048; 80053; 80069; 81003; 81015; 82570; 82575; 83605; 84100; 85025; 86850; 86900; 86901; 87040; 87077; 87086; 87149; 87186; 87324; 87449; 87493; 93005; A4216; A4353; G8978-GP-CL; G8979-GP-CJ; G8987-GO-CL; G8988-GO-CJ; G8996-GN-CJ; G8997-GN-CI; J1644; J2001; J2543; J3370; J7050; P9016; Q4081

== ENCOUNTER 2018-05-23 20:07 | Inpatient (IN) | payer MEDICARE, MEDICAID ==
[2018-05-23 20:56] LABS: #Lymphocytes 0.6 thou/uL (1.20-3.40); #Monocytes 0.6 thou/uL (0.11-0.59); #Neutrophils 10.7 thou/uL (1.40-6.50); %Eosinophils 0.3 % (0.0-10.0); %Lymphocytes 5.3 % (21.0-51.0); %Monocytes 4.9 % (0.0-10.0); %Neutrophils 89.5 % (42.0-75.0); Hemoglobin 9.2 g/dL (12.0-16.0); Mean Corpuscular HGB CONC 32.8 g/dL (32.0-36.0); Mean Corpuscular Hemoglobin 30.7 pg (27.0-31.0); Mean Corpuscular Volume 93.5 fL (78.0-98.0); Platelet Count 230 thou/uL (130-400); RBC Distribution Width 12.3 % (11.5-14.5); Red Blood Cell (RBC) Count 2.99 mill/uL (4.20-5.40)
[2018-05-23 21:11] LABS: ALT (SGPT) Less than 7 U/L (8-55); AST (SGOT) 9 U/L (5-34); Albumin 3.4 g/dL (3.4-4.8); Alkaline Phosphatase 89 U/L (40-150); Anion Gap 16 mmol/L (10-20); BUN (Urea Nitrogen) 56 mg/dL (9.8-20.1); Bilirubin, Total 0.8 mg/dL (0.2-1.2); Calc. Creatinine Clearance 0 mL/min (70-130); Calcium 9.3 mg/dL (7.8-10.44); Carbon Dioxide 15 mmol/L (23-31); Chloride 104 mmol/L (98-107); Estimated GFR-MDRD 13; Globulin 3.8 g/dL (2.4-3.5); Glucose 106 mg/dL (80-115); Lipase 19 U/L (8-78); Magnesium 2.1 mg/dL (1.6-2.6); Potassium 4.4 mmol/L (3.5-5.1); Protein, Total 7.2 g/dL (6.0-8.3); Sodium 131 mmol/L (136-145)
--- NOTE | 2018-05-23 21:18 | RAD ---
FRONTAL RADIOGRAPH CHEST: 05/23/2018 HISTORY: Weakness. Anorexia. COMPARISON: 01/05/2018 FINDINGS: Multiple old medial right-sided rib fractures are noted. There is no pneumothorax, pleural fluid, focal consolidation, or alveolar edema. IMPRESSION: No acute findings. POS: [facility]
[2018-05-23 21:59] LABS: Bilirubin Negative (Negative); Blood, Urine Moderate (Negative); Clarity CLOUDY (Clear); Glucose, Urine (Dipstick) Negative (Negative); Leukocyte Large (Negative); Nitrite Negative (Negative); Protein, Urine (Dipstick) 100 mg/dL (Neg-Trace); Specific Gravity, Urine 1.013 (1.002-1.036)
[2018-05-23 22:00] LABS: Bacteria/HPF 4+ HPF (None Seen); Hyaline Casts/LPF 4-6 HYALINE CAST LPF (0-3 Hyaline); Pathc Cast-AUWi Flag 0.43 (0-2.49); Squamous Epithelial 0-3 HPF (0-3)
[2018-05-23] MEDS ORDERED: cefTRIAXone\\ROCEPHIN 2 GM VIAL ONE (22:43)
[2018-05-23 22:57] LABS: Creatinine, Urine 152.88 mg/dL (47-110)
[2018-05-23 23:41] VITALS: BMI 24.7
[2018-05-23] MEDS: Lactated Ringer's 1,000 ML IV SCH (23:53)
[2018-05-24] MEDS: Lactated Ringer's 1,000 ML IV SCH (05:49)
[2018-05-24] MEDS: Acetaminophen 325 MG TAB PO PRN (06:06)
[2018-05-24 07:02] LABS: Anion Gap 14 mmol/L (10-20); BUN (Urea Nitrogen) 50 mg/dL (9.8-20.1); Calc. Creatinine Clearance 18 mL/min (70-130); Calcium 8.8 mg/dL (7.8-10.44); Carbon Dioxide 14 mmol/L (23-31); Chloride 111 mmol/L (98-107); Estimated GFR-MDRD 15; Glucose 96 mg/dL (80-115); Potassium 4.2 mmol/L (3.5-5.1); Sodium 135 mmol/L (136-145)
[2018-05-24] MEDS ORDERED: Prevnar 13-Val Conj/PF 0.5 ML SYRINGE IM ONE (09:00)
--- NOTE | 2018-05-24 09:25 | CON ---
DATE OF CONSULTATION: 05/24/2018 CONSULTING PHYSICIAN: Sharon Wise M.D. REQUESTING PHYSICIAN: ER physician and Dr. Adrian. REASON FOR CONSULTATION: Acute on chronic kidney disease. IMPRESSION: 1. Acute on chronic kidney disease. This is likely multifactorial including, but not limited to pre renal in the context of poor p.o. intake with excessive nausea and vomiting and slight dehydration in addition to cytokine-mediated injury in the context of infections/urinary tract infection. 2. Metabolic acidosis in the context of problem #1. 3. Urinary tract infection, likely because of this nausea and vomiting. PLAN: 1. Discontinue lactated Ringer's and start this patient on a bicarbonate based infusion. 2. Broad spectrum antibiotics pending urine culture and sensitivity. 3. Renally dose all medications. 4. Avoid potentially nephrotoxic agents. 5. Further management will be dependent on the clinical course. HISTORY OF PRESENT ILLNESS: History is that of a 67-year-old female patient with chronic kidney dise ase who was transiently on hemodialysis with recovered renal function to the point of coming off hemo dialysis. In any case, the patient seems to be doing well with a baseline creatinine in the 2 range, but for the past 2 weeks has been experiencing worsening weakness, dizziness, and urine that has bee n described as smelling strong. The patient also noted pain with urination. As a result of this, th e patient was brought to the ER where she was noted to have elevated creatinine of 4 above the patien t's baseline creatinine of 2. The patient also noted with evidence of urinary tract infection per ur inalysis. As a result of the renal deterioration the decision has been taken to involve Renal in the management of this case. PAST MEDICAL HISTORY: Chronic kidney disease stage 3-4, severe hypertension. MEDICATIONS: Reviewed and as documented on [facility]. ALLERGIES: No known drug allergy. FAMILY HISTORY: None significantly related to presenting illness. SOCIAL HISTORY: Denies alcohol, tobacco or illicit drug use. REVIEW OF SYSTEMS: As documented in the body of the history. All the other systems were reviewed an d found not to be significantly related to the presenting illness. PHYSICAL EXAMINATION: GENERAL: The patient noted to be febrile with a temperature of 101.6, pulse 96, respiratory rate 16, O2 sat 99% with blood pressure 138/68. HEENT: Unremarkable with moist oral mucosa. NECK: Supple, no conjunctival injection, no icterus. CARDIOVASCULAR SYSTEM: First and second heart sounds were heard. RESPIRATORY SYSTEM: Clear to auscultation. DIGESTIVE SYSTEM: Revealed a benign abdomen with positive bowel sounds. EXTREMITIES: No peripheral edema. SKIN: No new gross rash. LYMPHATICS: No peripheral lymphadenopathy. GENITOURINARY: Costovertebral angle tenderness is negative. SUMMARY: A 67-year-old female patient who presented here with dizziness, nausea, and vomiting, and n oted with acute on chronic kidney disease as well as for the urinary tract infection. Thank you for this consultation. We will follow with you.
[2018-05-24] MEDS: Sodium Bicarbonate 150 MEQ in Dextrose 5% in Water 1,000 ML IV SCH ×2 (09:53→21:55)
[2018-05-24] MEDS: Ciprofloxacin Lactate/D5W 200 MG in Premix Bag 1 BAG IVPB SCH ×2 (09:54→21:55)
[2018-05-24] MEDS ORDERED: traMADol HCl 50 MG TAB PO PRN (09:57)
[2018-05-24] MEDS: cefTRIAXone\\ROCEPHIN 1 GM in Sodium Chloride 0.9% 100 ML IVPB SCH (10:06)
[2018-05-25] MEDS: Acetaminophen 325 MG TAB PO PRN ×2 (00:28→08:57)
[2018-05-25] MEDS: Levothyroxine 150 MCG TAB PO SCH (05:27)
[2018-05-25] MEDS: Aspirin 325 MG TAB PO SCH (08:57)
[2018-05-25] MEDS: Ferrous Sulfate 325 MG TAB PO SCH (08:58)
[2018-05-25] MEDS: Ciprofloxacin Lactate/D5W 200 MG in Premix Bag 1 BAG IVPB SCH ×2 (08:58→21:43)
[2018-05-25] MEDS: cefTRIAXone\\ROCEPHIN 1 GM in Sodium Chloride 0.9% 100 ML IVPB SCH (08:58)
--- NOTE | 2018-05-25 08:59 | HP ---
CHIEF COMPLAINT: Weakness and strong-smelling urine. HISTORY OF PRESENT ILLNESS: Ms. Dias is a 67-year-old female with past medical history of hypertension, hypothyroidism, and CVA, who was brought in because of generalized weakness. The patient has been. Doing well. She was able to ambulate with walker, eating well until a few days ago like a week ago when she started to become weak and lethargic, which has gotten worse in the last few days to the point she did not want to get up and move, she did not want to do anything, not eating well, not taking fluids well, feeling dizzy, and her urine smelled strong , but did not have any fever until she came here, so the patient was brought into the hospital because of these symptoms. In the ER, the patient was evaluated and was found to be hypotensive and also developed fever of 101.6. She was found to have urinary tract infection, so she was given Rocephin and given IV fluids and admitted for further evaluation and management. PAST MEDICAL HISTORY: 1. Hypertension. 2. Hypothyroidism. 3. Status post multiple traumas including fracture of the right femur and left humerus and elbow. PAST SURGICAL HISTORY: Status post ORIF, left proximal humerus fracture, and right supracondylar humeral fracture. CURRENT MEDICATIONS: The patient is on aspirin 325 mg daily, hydralazine 50 mg t.i.d., iron daily, labetalol 200 mg b.i.d., levothyroxine 150 mcg daily, nifedipine 60 b.i.d., tramadol 50 b.i.d. p.r.n., zinc 50 mg daily. ALLERGIES: NKDA. FAMILY HISTORY: Nothing contributory. SOCIAL HISTORY: The patient lives with her family. No history of smoking. No history of alcohol or drug abuse. REVIEW OF SYSTEMS: CARDIOVASCULAR: No chest pain, no shortness of breath. RESPIRATORY: No fever, cough. GASTROINTESTINAL: No nausea, vomiting. No abdominal pain. GENITOURINARY SYSTEM: has strong odor CENTRAL NERVOUS SYSTEM: Weakness and dizziness. PHYSICAL EXAMINATION: GENERAL: The patient is alert, awake, and oriented x2. VITAL SIGNS: Temperature 101.6, pulse 96, respiratory rate 18, blood pressure 94 /60. HEENT: Head is normocephalic and atraumatic. Pupils are equal and reactive. Nasopharynx is pale and dry. HEART: S1 and S2. No murmur, rubs, or gallops. SKIN: Skin turgor decreased. NECK: Supple. No JVD. LUNGS: Bilateral air entry with no rales, no rhonchi. ABDOMEN: Soft, no distention, no tenderness. Normal bowel movements. NEUROLOGIC: The patient is alert, awake, and oriented x3. Motor system; 4/5 in all extremities. Deep tendon reflexes 2+ bilaterally with plantars downgoing. Sensory intact. LABORATORY DATA: CBC shows a WBC of 12, hemoglobin 9.2, hematocrit 27, platelets 230. Metabolic panel; sodium 131, potassium 4.4, chloride 104, CO2 of 15, BUN 56 , creatinine 4, glucose 106. Urinalysis; urine wbc's too many to count, bacteria 4 +, leukocyte esterase large. Urine blood positive. EKG shows normal sinus rhythm, no acute ST changes seen. Chest x-ray negative. ASSESSMENT: 1. Sepsis due to urinary tract infection and metabolic encephalopathy. 2. Metabolic acidosis. 3. Acute kidney injury. 4. Hypotension. 5. Hypothyroidism. PLAN: 1. Vital signs q. 4 hours. 2. Activity as tolerated. 3. Allergies: No known drug allergies. 4. Continue IV flulids at 100 mL per hour. 5. Rocephin 1 g IV piggyback daily, Cipro 500 mg IV piggyback q. 12 hours. 6. continue home medications. 7. Infectious Disease consult. Job ID: [id number] [facility]
[2018-05-25] MEDS: Zinc Sulfate 220 MG CAP PO SCH (09:00)
[2018-05-25] MEDS: Sodium Bicarbonate 150 MEQ in Dextrose 5% in Water 1,000 ML IV SCH ×2 (09:18→20:00)
[2018-05-25 12:30] LABS: #Eosinphils 0.2 thou/uL (0.0-0.7); #Lymphocytes 1.2 thou/uL (1.20-3.40); #Monocytes 0.9 thou/uL (0.11-0.59); #Neutrophils 5.4 thou/uL (1.40-6.50); %Basophils 0.1 % (0.0-1.0); %Eosinophils 2.8 % (0.0-10.0); %Lymphocytes 15.5 % (21.0-51.0); %Monocytes 11.3 % (0.0-10.0); %Neutrophils 70.3 % (42.0-75.0); Hemoglobin 8.8 g/dL (12.0-16.0); Mean Corpuscular HGB CONC 32.4 g/dL (32.0-36.0); Mean Corpuscular Hemoglobin 30.9 pg (27.0-31.0); Mean Corpuscular Volume 95.3 fL (78.0-98.0); Mean Platelet Volume 7.9 fL (7.4-10.4); Platelet Count 226 thou/uL (130-400); RBC Distribution Width 12.3 % (11.5-14.5); Red Blood Cell (RBC) Count 2.84 mill/uL (4.20-5.40); White Blood Cell (WBC) Count 7.6 thou/uL (4.8-10.8)
[2018-05-25 12:51] LABS: Anion Gap 13 mmol/L (10-20); BUN (Urea Nitrogen) 31 mg/dL (9.8-20.1); Calc. Creatinine Clearance 21 mL/min (70-130); Calcium 8.7 mg/dL (7.8-10.44); Carbon Dioxide 23 mmol/L (23-31); Chloride 105 mmol/L (98-107); Estimated GFR-MDRD 19; Glucose 113 mg/dL (80-115); Phosphorus 3.1 mg/dL (2.3-4.7); Potassium 3.5 mmol/L (3.5-5.1); Sodium 137 mmol/L (136-145)
[2018-05-25 13:57] LABS: Anion Gap 15 mmol/L (10-20); BUN (Urea Nitrogen) 32 mg/dL (9.8-20.1); Calc. Creatinine Clearance 21 mL/min (70-130); Calcium 8.8 mg/dL (7.8-10.44); Carbon Dioxide 22 mmol/L (23-31); Chloride 105 mmol/L (98-107); Estimated GFR-MDRD 19; Glucose 111 mg/dL (80-115); Potassium 3.6 mmol/L (3.5-5.1); Sodium 138 mmol/L (136-145)
--- NOTE | 2018-05-25 18:12 | CT ---
ABDOMEN AND PELVIC CT SCAN WITHOUT IV CONTRAST: 05/25/18 HISTORY: 67-year-old female with history of urosepsis with stomach pain. Small bilateral pleural effusions and moderate bilateral pleural based parenchymal changes, worse in the right base, evidence for subsegmental atelectasis or minimal pneumonitis. Numerous gallstones are noted in the gallbladder without overt pericholecystic fluid or abnormal fat stranding. No ductal di latation. The visualized pancreas, spleen, adrenal glands, are unremarkable. No evidence for renal ca lculi or acute obstruction. There is evidence for a right lateral inferior abdominal wall hernia j ust above the level of the right iliac crest. This contains the cecum and right colon primarily. No C T evidence for acute appendicitis. Mild fat stranding in the colonic gutters noted but no evidence fo r abscess. Urinary bladder is not well distended. Uterus and adnexal regions appear unremarkable. Min imal free fluid in the pelvis. IMPRESSION: Bilateral small pleural effusions and pleural based parenchymal changes evidence for subsegmental ate lectasis and/or pneumonitis. Right lateral inferior abdominal wall hernia containing the cecum. No ev idence for obstructing calculus. Multiple gallstones without gallbladder wall thickening or perich olecystic fluid. Minimal free pelvic fluid. Normal appearing appendix. No evidence for an abscess. POS: VICKI
[2018-05-25] MEDS ORDERED: Epoetin (ESRD) 20,000 UNITS/ML SC SCH (20:00)
[2018-05-26] MEDS: Sodium Bicarbonate 150 MEQ in Dextrose 5% in Water 1,000 ML IV SCH (03:46)
[2018-05-26] MEDS: Acetaminophen 325 MG TAB PO PRN (05:13)
[2018-05-26] MEDS: Levothyroxine 150 MCG TAB PO SCH (05:13)
[2018-05-26] MEDS: Ferrous Sulfate 325 MG TAB PO SCH (08:52)
[2018-05-26] MEDS: Zinc Sulfate 220 MG CAP PO SCH (08:52)
[2018-05-26] MEDS: cefTRIAXone\\ROCEPHIN 1 GM in Sodium Chloride 0.9% 100 ML IVPB SCH (08:52)
[2018-05-26] MEDS: Aspirin 325 MG TAB PO SCH (08:52)
[2018-05-26] MEDS: Folic Acid/Vit B Comp W-C PO SCH (08:52)
--- NOTE | 2018-05-26 09:47 | CON ---
DATE OF CONSULTATION: 05/25/2018 REASON FOR CONSULTATION: Urosepsis. HISTORY OF PRESENT ILLNESS: 67-year-old patient, whom I had seen previously in December 2017, when she presented with a history of prior CVA with a left-sided residual paresis, hypertension, and end-stage renal disease, on hemodialysis at that time through a tunneled hemodialysis catheter. 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 The plan at that time was to treat her with IV antimicrobial therapy; however, the patient refused the replacement of the catheter. She did not require resumption of dialysis and we basically put her on oral Keflex, which she finished the course of therapy for 4 weeks and has not had any evidence of recrudescence of staphylococcal infection, but this time, she presents with weakness, lethargy with a change in the color and smell of her urine, but no dysuria. No headaches. No visual symptoms, sore throat, odynophagia, or dysphagia. No dyspnea or chest pain. No abdominal pain. No back pain. She had no joint symptoms. She does have evidence of constipation intermittently. PAST MEDICAL HISTORY: Hypertension, hypothyroidism, renal insufficiency with temporary dialysis through a tunneled catheter, which was discontinued due to improvement of the kidney function. She did have a dialysis catheter infection by methicillin-susceptible Staphylococcus aureus, which was treated with oral Keflex because the patient declined IV therapy. PAST SURGICAL HISTORY: Includes open reduction and internal fixation of left proximal humerus fracture and right supracondylar humeral fracture. ALLERGIES: NONE. FAMILY HISTORY: Noncontributory. SOCIAL HISTORY: Never smoker. She had been living by herself with one of her sons. No alcoholic beverage use. No drug use. MEDICATIONS: Current medication list includes; 1. Tylenol with ceftriaxone. 2. Ciprofloxacin. 3. Tramadol. PHYSICAL EXAMINATION: VITAL SIGNS: T-max 102.8, blood pressure 120/73, pulse 63, and respirations 18. SKIN: Exam was not remarkable. She has a peripheral IV access. LYMPHATICS: No lymphadenopathy. HEENT: Ocular movements conjugate. She has numerous missing teeth; remainder ones with quite bit of decay and gum disease. NECK: Supple. No jugular venous distention or carotid bruits. LUNGS: Symmetric. Clear breath sounds. HEART: S1 and S2. Regular rate with a soft aortic murmur. ABDOMEN: Soft, not distended or tender. No bladder distention. No ascites MUSCULOSKELETAL: No joint inflammatory process no (Please refer to duplicate dictation for remainder of H&P) Job ID: [id number] [facility]
--- NOTE | 2018-05-26 10:03 | CON ---
DATE OF CONSULTATION: 05/25/2018 IDENTIFICATION: 67-year-old lady. REASON FOR CONSULTATION: Urosepsis. HISTORY OF PRESENT ILLNESS: Ms. Dias has a history of prior CVA with residual hemiparesis, end-stage renal disease of uncertain etiology with improvements in the renal function and recent discontinuation of hemodialysis as well as a recent episode of hemodialysis catheter infection, which led to removal of the catheter without any replacement. During the last visit in December, she declined placement of another catheter and she was treated with oral Keflex for the Staphylococcus aureus bacteremia. Thus far, she has not had any evidence of recrudescence of staphylococcal infection, but was brought to the hospital this time with general weakness, general malaise, and fever. She was found to have abnormal urinalysis and had positive blood cultures with E. coli. The same organism was identified in the urine cultures as well. She has been treated with antimicrobial therapy with rapid improvement. Currently, she is in the room with family members. She appears in no distress. No headaches, visual symptoms, sore throat, odynophagia, or dysphagia. No cough or sputum production. No back pain. No abdominal pain or diarrhea. Voiding without difficulty. No joint symptoms. Still with a little bit of weakness in the left side. PAST MEDICAL HISTORY: Hypertension, hypothyroidism, fracture right femur and left femur and elbow, previous MSSA (methicillin-sensitive Staphylococcus aureus) bacteremia associated with hemodialysis line colonization. ALLERGIES: NONE. FAMILY HISTORY: Noncontributory. SOCIAL HISTORY: Never smoker. Lives by herself with help from family members who live nearby. CURRENT MEDICATIONS: Include: 1. Tylenol. 2. Aspirin. 3. Ceftriaxone. 4. Cipro. 5. Feosol. 6. Synthroid. 7. Tramadol. PHYSICAL EXAMINATION: VITAL SIGNS: T-max 102.8. She is now afebrile. Blood pressure 120/73, pulse 63, respirations 18, and O2 sat 95%. GENERAL: Appears in no distress, oriented. SKIN: With no abnormalities. No lymphadenopathy. HEENT: Ocular movements conjugate. Oral cavity normal. NECK: Supple. LUNGS: Clear without wheezing or crackles. S1 and S2 with a soft aortic murmur. ABDOMEN: Soft, not distended or tender. No ascites. : No bladder distention. MUSCULOSKELETAL: No joint inflammatory activity. Slight weakness in left side. SAMPLE SUPERVISOR: Cognitive function appears to be intact. LABORATORY DATA: White cell count down from 12 to 7.6, hemoglobin 8.8, MCV 95, platelets 226. Sodium 138, creatinine down from 4.28 to 3.03, the lowest creatinine she has had recently was 2.8 in January. Liver profile was normal. Albumin 3.4, globulin 3.8. Urinalysis with greater than 50 wbc's. Urine culture with E. coli with a broad susceptibility profile except for ampicillin and Bactrim. Same organism isolated from blood cultures x2. IMAGING STUDIES: Include a chest x-ray, no acute findings. ASSESSMENT: 1. End-stage renal disease of unknown etiology with more recent improvement in the renal function, which allowed discontinuation of hemodialysis. The patient does not have any dialysis access at this point. 2. Recent episode of MSSA or methicillin-sensitive Staphylococcus aureus bacteremia, likely due to hemodialysis catheter colonization, which has been removed without replacement. No evidence of recrudescence of the staphylococcal infection at this time. 3. Urosepsis, likely pyelonephritis with bacteremia. DISCUSSION: The patient needs imaging study to rule out obstruction, nephrolithiasis. We will order a CT stone protocol for that. Transition to oral quinolone for discharge planning, 3 to 4 weeks, depending on the findings in the CT scan. If no abnormalities are noted, then 2 weeks, otherwise a longer period of time. Urology consultation might be required depending on findings on the CT stone protocol. Job ID: [id number]
[2018-05-26] MEDS: Ciprofloxacin Lactate/D5W 200 MG in Premix Bag 1 BAG IVPB SCH (10:11)
[2018-05-26 19:52] LABS: Iron 20 ug/dL (50-170); Iron Binding Capacity, Total 176 mcg/dL (265-497)
[2018-05-26 19:53] LABS: Albumin 3.3 g/dL (3.4-4.8); Anion Gap 14 mmol/L (10-20); BUN (Urea Nitrogen) 24 mg/dL (9.8-20.1); BUN/Creatinine Ratio 8.36; Calc. Creatinine Clearance 22 mL/min (70-130); Calcium 9.3 mg/dL (7.8-10.44); Carbon Dioxide 32 mmol/L (23-31); Chloride 97 mmol/L (98-107); Estimated GFR-MDRD 20; Glucose 99 mg/dL (80-115); Iron 19 ug/dL (50-170); Phosphorus 3.2 mg/dL (2.3-4.7); Potassium 3.5 mmol/L (3.5-5.1); Sodium 139 mmol/L (136-145)
--- NOTE | 2018-05-26 20:21 | PRG ---
DATE OF SERVICE: 05/26/2018 SUBJECTIVE: The patient was seen and examined. Seems to be doing much better OBJECTIVE: VITAL SIGNS: Afebrile. Temperature 95, pulse 66, respiratory rate of 18, O2 saturations 93%, with blood pressure 138/73. HEENT: Unremarkable. Moist oral mucosa. NECK: Supple. No conjunctival injection or icterus. CARDIOVASCULAR: First and second heart sounds were heard. RESPIRATORY: Clear to auscultation. DIGESTIVE: Reviewed. Benign abdomen. EXTREMITIES: No peripheral edema. SKIN: No new bruise or rash. LYMPHATICS: No peripheral lymphadenopathy. IMPRESSION: 1. Acute on chronic kidney disease in the context of urinary tract infection and intravascular depletion. 2. Metabolic acidosis, resolved. 3. Urinary tract infection with Escherichia coli sensitive to many antibiotics. PLAN: 1. Please discontinue bicarb drip. 2. Continue renal supportive measures. 3. Renally dose all medications. 4. Outpatient Nephrology followup status post discharge recommended. Job ID: [id number]
[2018-05-26] MEDS: Cipro 250 MG TAB PO SCH (20:54)
[2018-05-27] MEDS: Cipro 250 MG TAB PO SCH (04:25)
[2018-05-27] MEDS: Levothyroxine 150 MCG TAB PO SCH (04:25)
[2018-05-27 05:06] LABS: #Eosinphils 0.3 thou/uL (0.0-0.7); #Lymphocytes 1.9 thou/uL (1.20-3.40); #Monocytes 0.6 thou/uL (0.11-0.59); %Basophils 0.2 % (0.0-1.0); %Eosinophils 5.8 % (0.0-10.0); %Lymphocytes 32.1 % (21.0-51.0); %Monocytes 10.6 % (0.0-10.0); %Neutrophils 51.3 % (42.0-75.0); Hemoglobin 8.3 g/dL (12.0-16.0); Mean Corpuscular HGB CONC 33.2 g/dL (32.0-36.0); Mean Corpuscular Hemoglobin 31.4 pg (27.0-31.0); Mean Corpuscular Volume 94.8 fL (78.0-98.0); Mean Platelet Volume 7.8 fL (7.4-10.4); Platelet Count 285 thou/uL (130-400); RBC Distribution Width 12.5 % (11.5-14.5); Red Blood Cell (RBC) Count 2.63 mill/uL (4.20-5.40); White Blood Cell (WBC) Count 5.9 thou/uL (4.8-10.8)
[2018-05-27 05:22] LABS: Albumin 2.9 g/dL (3.4-4.8); Anion Gap 13 mmol/L (10-20); BUN (Urea Nitrogen) 22 mg/dL (9.8-20.1); BUN/Creatinine Ratio 7.97; Calc. Creatinine Clearance 23 mL/min (70-130); Carbon Dioxide 29 mmol/L (23-31); Chloride 101 mmol/L (98-107); Estimated GFR-MDRD 21; Glucose 85 mg/dL (80-115); Phosphorus 3.8 mg/dL (2.3-4.7); Potassium 3.3 mmol/L (3.5-5.1); Sodium 140 mmol/L (136-145)
[2018-05-27] MEDS: Zinc Sulfate 220 MG CAP PO SCH (08:10)
[2018-05-27] MEDS: Folic Acid/Vit B Comp W-C PO SCH (08:10)
[2018-05-27] MEDS: Aspirin 325 MG TAB PO SCH (08:10)
[2018-05-27] MEDS: Ferrous Sulfate 325 MG TAB PO SCH (08:10)
--- NOTE | 2018-05-27 09:52 | PRG ---
DATE OF SERVICE: 05/25/2018 SUBJECTIVE: The patient seen and examined. Seems to be doing much better. Noted with the following vital signs. OBJECTIVE: VITAL SIGNS: Temperature 98.3, pulse 75, respiratory rate of 20, O2 saturation of 99%, blood pressure 152/78. HEENT: Unremarkable. CARDIOVASCULAR: First and second heart sounds were heard. RESPIRATORY: Clear to auscultation. DIGESTIVE SYSTEM: Reviewed positive bowel sounds. EXTREMITIES: No peripheral edema. SKIN: No any gross rash. LYMPHATICS: No peripheral lymphadenopathy. LABORATORY DATA: Hemoglobin of 8.8. Creatinine down to 3.03. On microscopy, significant for E coli growth, sensitive to many antibiotics. IMPRESSION: 1. Acute on chronic kidney disease which seems to be improving. 2. Metabolic acidosis, improving. 3. Urinary tract infection. 4. Anemia of chronic kidney disease. PLAN: 1. Evaluate iron studies and replete accordingly, parenterally if need be. 2. In the next 24 hours, the patient's antibiotics based on sensitivities can be streamlined down to ciprofloxacin oral and discontinue all the IV antibiotics. 3. Patient may benefit from erythropoietin-stimulating agent injection. 4. Further management will be dependent on the clinical course. Job ID: [id number]
[2018-05-27] MEDS ORDERED: Potassium Chloride 20 MEQ TAB PO SCH (10:15)
[2018-05-27 16:46] VITALS: BP 120/83; TEMP 98.6
--- NOTE | 2018-05-27 21:14 | PRG ---
DATE OF SERVICE: 05/27/2018 SUBJECTIVE: The patient was seen and examined with no new complaint. Noted with the following. OBJECTIVE: VITAL SIGNS: Afebrile, temperature 98.6, pulse 68, respiratory rate of 18, O2 saturation of 99% with a blood pressure of 120/83. HEENT: Unremarkable. Moist oral mucosa. NECK: Supple. No conjunctival injection or icterus. CARDIOVASCULAR SYSTEM: First and second heart sounds were heard. RESPIRATORY SYSTEM: Clear to auscultation. DIGESTIVE SYSTEM: Reviewed. Benign abdomen with positive bowel sounds. EXTREMITIES: No peripheral edema. SKIN: No new bruise or rash. LYMPHATICS: No peripheral lymphadenopathy. IMPRESSION: 1. Acute on chronic kidney disease, improving. 2. Hypokalemia. 3. Urinary tract infection, on treatment. PLAN: 1. Repeat potassium. 2. Renally dose all medications. 3. From the renal standpoint, the patient is good for discharge. Job ID: [id number]
--- NOTE | 2018-05-28 16:19 | EKG ---
Test Reason : Blood Pressure : / mmHG Vent. Rate : 091 BPM Atrial Rate : 091 BPM P-R Int : 160 ms QRS Dur : 084 ms QT Int : 352 ms P-R-T Axes : 015 091 058 degrees QTc Int : 432 ms Normal sinus rhythm Rightward axis Borderline ECG Confirmed by MIRANDA RENEE ([id number]), magazine editor SHANDRA VIRAMONTES ([id number]) on 05/28/2018 4:18:53 PM Referred By: MADAI RENEE Confirmed By:MIRANDA RENEE
--- NOTE | 2018-05-30 11:47 | DIS ---
DATE OF ADMISSION: 05/23/2018 DATE OF DISCHARGE: 05/27/2018 ADMITTING DIAGNOSES: 1. Sepsis due to urinary tract infection. 2. Metabolic encephalopathy, acute. 3. Metabolic acidosis. 4. Acute kidney injury. 5. Hypotension. 6. Hypothyroid. FINAL DIAGNOSES: 1. Sepsis with Escherichia coli due to urinary tract infection, improving. 2. Acute kidney injury, improved. 3. Acute metabolic encephalopathy, improved. 4. Metabolic acidosis, improved. 5. Hypotension, controlled and improved. 6. Hypothyroid. BRIEF SUMMARY OF HOSPITAL COURSE: Ms. Dias is a 67-year-old female, admitted because of change in the mental status. The patient was found to have urinary tract infection. Culture showed E coli, both blood and urine. The patient was started initially on Rocephin and consultation with Infectious Disease. The patient was seen by Dr. Roman. A CT of abdomen with stone protocol to rule out any nephrolithiasis was done and there was no evidence of nephrolithiasis. The patient's blood culture revealed E coli, sensitive to quinolone as well as ceftriaxone. The patient's antibiotic was changed to Cipro. The patient had no fever was alert and awake. She has been eating. The patient was also seen by Dr. Herrera of Nephrology for acute kidney injury and metabolic acidosis, but patient's kidney injury improved and BUN which was 56 came down to 22, creatinine came down from 4.2 to 2.7. DISCHARGE MEDICATIONS: Include; 1. Levothyroxine 150 mcg daily. 2. Labetalol 200 mg b.i.d. 3. Tramadol 50 b.i.d. p.r.n. 4. Nifedipine 60 mg b.i.d. 5. Hydralazine 50 b.i.d. 6. Aspirin 325 mg daily. 7. Cipro 250 b.i.d. for 2 weeks. 8. Ferrous sulfate daily. 9. Tylenol p.r.n. FOLLOWUP: The patient will come to followup in 2 weeks. Job ID: [id number] [facility]
== END 2018-05-27 17:28 | disposition home or self-care (01) | DRG 871 ==
LOC: ERS 20:07 → T4-A 22:05
PROVIDERS: ADMIT Internal Medicine; ATTEND Internal Medicine
DX: A41.51 Sepsis due to Escherichia coli [E. coli] (principal); G93.41 Metabolic encephalopathy; N18.6 End stage renal disease; N17.9 Acute kidney failure, unspecified; E87.2 Acidosis; I12.0 Hypertensive chronic kidney disease with stage 5 chronic kidney disease or end stage renal disease; N10 Acute pyelonephritis; I69.354 Hemiplegia and hemiparesis following cerebral infarction affecting left non-dominant side; N39.0 Urinary tract infection, site not specified; E86.0 Dehydration; E03.9 Hypothyroidism, unspecified; D63.1 Anemia in chronic kidney disease; E87.6 Hypokalemia
CPT/HCPCS: 36415; 51701; 71045; 74176; 80048; 80053; 80069; 81003; 81015; 82570; 82728; 83540; 83550; 83690; 83735; 84540; 85025; 87040; 87077; 87086; 87149; 87186; 87804; 90471; 90670; 93005; 96361; 96365; A4353; G0009; J0696; J0744; J7050; J7070; Q4081

== ENCOUNTER 2022-02-01 18:29 | Inpatient (IN) | payer MEDICARE, MEDICAID ==
[2022-02-01 19:26] LABS: #Eosinphils 0.1 thou/uL (0.0-0.7); #Monocytes 0.5 thou/uL (0.11-0.59); #Neutrophils 7.6 thou/uL (1.40-6.50); %Basophils 0.4 % (0.0-1.0); %Eosinophils 1.6 % (0.0-10.0); %Lymphocytes 11.2 % (21.0-51.0); %Monocytes 4.9 % (0.0-10.0); Hemoglobin 13.1 g/dL (12.0-16.0); Mean Corpuscular HGB CONC 34.7 g/dL (32.0-36.0); Mean Corpuscular Hemoglobin 32.2 pg (27.0-31.0); Mean Platelet Volume 6.9 fL (7.4-10.4); Platelet Count 203 thou/uL (130-400); RBC Distribution Width 11.7 % (11.5-14.5); Red Blood Cell (RBC) Count 4.05 mill/uL (4.20-5.40); White Blood Cell (WBC) Count 9.3 thou/uL (4.8-10.8)
[2022-02-01 19:28] LABS: Bacteria/HPF 4+ HPF (None Seen); Bilirubin Negative (Negative); Blood, Urine 1+ (Negative); Clarity Extra Turbid (Clear); Glucose, Urine (Dipstick) Normal (Negative); Ketone, Urine Negative (Negative); Leukocyte 500 Leu/uL (Negative); Nitrite Negative (Negative); Protein, Urine (Dipstick) 100 mg/dL (Neg-Trace); RBC/HPF 0-3 HPF (0-3); Renal Epithelial 0-3 HPF (None Seen); Specific Gravity, Urine 1.013 (1.002-1.036); Squamous Epithelial 0-3 HPF (0-3); WBC/HPF Greater than 50 HPF (0-3)
[2022-02-01 19:41] LABS: ALT (SGPT) Less than 7 U/L (8-55); AST (SGOT) 15 U/L (5-34); Albumin 3.6 g/dL (3.4-4.8); Alkaline Phosphatase 75 U/L (40-110); Anion Gap 18 mmol/L (10-20); BUN (Urea Nitrogen) 30 mg/dL (9.8-20.1); Bilirubin, Total 0.9 mg/dL (0.2-1.2); CK (CPK) 156 U/L (29-168); Calc. Creatinine Clearance 0 mL/min (70-130); Calcium 8.7 mg/dL (7.8-10.44); Carbon Dioxide 12 mmol/L (23-31); Chloride 107 mmol/L (98-107); Estimated GFR 14; Globulin 3.5 g/dL (2.4-3.5); Glucose 159 mg/dL (80-115); Protein, Total 7.1 g/dL (5.8-8.1); Sodium 134 mmol/L (136-145)
[2022-02-01 19:50] LABS: SARS-CoV-2 NAA Rapid Test Not Detected (NotDetected)
[2022-02-01 19:52] LABS: Potassium 2.9 mmol/L (3.5-5.1)
[2022-02-01] MEDS ORDERED: cefTRIAXone\\ROCEPHIN 2 GM VIAL ONE (20:32)
[2022-02-01] MEDS ORDERED: Potassium Chloride 20 MEQ TAB ONE (20:42)
[2022-02-01 20:55] LABS: Magnesium 1.8 mg/dL (1.6-2.6)
[2022-02-01] MEDS ORDERED: Acetaminophen 325 MG TAB PO PRN (21:31)
[2022-02-01] MEDS ORDERED: HYDROcodone/Acetaminophen 5/325 mg Tablet PO PRN (21:31)
[2022-02-01] MEDS ORDERED: Ondansetron PF 4 MG/2 ML Vial IVP PRN (21:31)
[2022-02-01] MEDS ORDERED: Magnesium 2 GM/50 ML(in water) 2 GM in Premix Bag 1 BAG IVPB SCH (22:00)
[2022-02-01] MEDS: Sodium Chloride 0.9% 1,000 ML IV SCH (23:41)
[2022-02-02 01:10] VITALS: BMI 24.3
[2022-02-02 04:41] LABS: #Basophils 0.1 thou/uL (0.0-0.2); #Eosinphils 0.1 thou/uL (0.0-0.7); #Lymphocytes 1.5 thou/uL (1.20-3.40); #Monocytes 0.5 thou/uL (0.11-0.59); #Neutrophils 7.5 thou/uL (1.40-6.50); %Basophils 0.5 % (0.0-1.0); %Eosinophils 1.2 % (0.0-10.0); %Monocytes 5.4 % (0.0-10.0); %Neutrophils 77.8 % (42.0-75.0); Hemoglobin 12.8 g/dL (12.0-16.0); Mean Corpuscular HGB CONC 32.5 g/dL (32.0-36.0); Mean Corpuscular Volume 95.3 fL (78.0-98.0); Mean Platelet Volume 7.4 fL (7.4-10.4); Platelet Count 221 thou/uL (130-400); RBC Distribution Width 11.7 % (11.5-14.5); Red Blood Cell (RBC) Count 4.12 mill/uL (4.20-5.40); White Blood Cell (WBC) Count 9.6 thou/uL (4.8-10.8)
[2022-02-02 04:57] LABS: Potassium 3.8 mmol/L (3.5-5.1)
[2022-02-02 05:00] LABS: ALT (SGPT) Less than 7 U/L (8-55); AST (SGOT) 16 U/L (5-34); Albumin 3.4 g/dL (3.4-4.8); Alkaline Phosphatase 75 U/L (40-110); Anion Gap 16 mmol/L (10-20); BUN (Urea Nitrogen) 27 mg/dL (9.8-20.1); Bilirubin, Total 0.6 mg/dL (0.2-1.2); Calc. Creatinine Clearance 21 mL/min (70-130); Calcium 8.3 mg/dL (7.8-10.44); Carbon Dioxide 14 mmol/L (23-31); Chloride 111 mmol/L (98-107); Estimated GFR 17; Glucose 112 mg/dL (80-115); Protein, Total 6.4 g/dL (5.8-8.1); Sodium 137 mmol/L (136-145)
[2022-02-02] MEDS: Sodium Chloride 0.9% 1,000 ML IV SCH (07:22)
[2022-02-02] MEDS ORDERED: Non-Formulary Item 1 EACH (Atorvastatin Calcium [Atorvastatin Calcium] 80 MG Tablet) PO SCH (09:00)
[2022-02-02] MEDS ORDERED: IRON CARBONYL PO SCH (09:00)
[2022-02-02] MEDS ORDERED: [UNRECOGNIZED DRUG - OTHER] PO SCH (09:00)
[2022-02-02] MEDS ORDERED: ASCORBIC ACID PO SCH (09:00)
[2022-02-02] MEDS ORDERED: Levothyroxine 150 MCG TAB PO SCH (09:00)
[2022-02-02] MEDS: Ferrous Sulfate 325 MG TAB PO SCH (10:14)
[2022-02-02] MEDS: Aspirin 325 MG TAB PO SCH (10:14)
[2022-02-02] MEDS: Enoxaparin Sodium 30 MG/0.3 ML SYRINGE SC SCH (10:15)
[2022-02-02] MEDS: Sodium Bicarbonate 150 MEQ in Dextrose 5% in Water 1,000 ML IV SCH ×2 (11:57→22:12)
[2022-02-02 18:30] LABS: Creatinine, Urine 104.24 mg/dL (47-110)
[2022-02-02] MEDS: Atorvastatin Calcium 40 MG TAB PO SCH (20:58)
[2022-02-02] MEDS: cefTRIAXone\\ROCEPHIN 2 GM in Sodium Chloride 0.9% 100 ML IVPB SCH (20:58)
[2022-02-03] MEDS: Levothyroxine Sodium 125 MCG TAB PO SCH (05:53)
[2022-02-03] MEDS: Aspirin 325 MG TAB PO SCH (09:21)
[2022-02-03] MEDS: Enoxaparin Sodium 30 MG/0.3 ML SYRINGE SC SCH (09:21)
[2022-02-03] MEDS: Megestrol Acetate 800 MG/20 ML UDCUP PO SCH (09:21)
[2022-02-03] MEDS: Ferrous Sulfate 325 MG TAB PO SCH (09:21)
[2022-02-03] MEDS: Ondansetron ODT 4 MG TAB PO PRN (09:23)
[2022-02-03 12:44] LABS: Albumin 3.1 g/dL (3.4-4.8); Anion Gap 14 mmol/L (10-20); BUN (Urea Nitrogen) 18 mg/dL (9.8-20.1); BUN/Creatinine Ratio 8.11; Calc. Creatinine Clearance 29 mL/min (70-130); Calcium 8.5 mg/dL (7.8-10.44); Carbon Dioxide 27 mmol/L (23-31); Chloride 101 mmol/L (98-107); Estimated GFR 23; Glucose 107 mg/dL (80-115); Phosphorus 2.4 mg/dL (2.3-4.7); Potassium 3.7 mmol/L (3.5-5.1); Sodium 138 mmol/L (136-145)
[2022-02-03] MEDS ORDERED: VANCOMYCIN 1.25 GM/250 ML BAG 1.25 GM in Premix Bag 1 BAG IVPB SCH (14:00)
[2022-02-03] MEDS: Atorvastatin Calcium 40 MG TAB PO SCH (20:50)
[2022-02-03] MEDS: cefTRIAXone\\ROCEPHIN 2 GM in Sodium Chloride 0.9% 100 ML IVPB SCH (20:50)
[2022-02-03] MEDS: Sodium Bicarbonate 150 MEQ in Dextrose 5% in Water 1,000 ML IV SCH (20:58)
[2022-02-03] MEDS ORDERED: Vancomycin 1 GM in Premix Bag 1 BAG IVPB SCH (21:00)
[2022-02-04] MEDS: Levothyroxine Sodium 125 MCG TAB PO SCH (05:58)
[2022-02-04] MEDS: Sodium Bicarbonate 150 MEQ in Dextrose 5% in Water 1,000 ML IV SCH (05:58)
[2022-02-04 08:28] LABS: Hemoglobin 12.9 g/dL (12.0-16.0); Mean Corpuscular HGB CONC 32.7 g/dL (32.0-36.0); Mean Corpuscular Hemoglobin 30.9 pg (27.0-31.0); Mean Corpuscular Volume 94.6 fL (78.0-98.0); Mean Platelet Volume 7.4 fL (7.4-10.4); Platelet Count 145 thou/uL (130-400); RBC Distribution Width 11.8 % (11.5-14.5); Red Blood Cell (RBC) Count 4.16 mill/uL (4.20-5.40); White Blood Cell (WBC) Count 5.6 thou/uL (4.8-10.8)
[2022-02-04 09:13] LABS: Carbon Dioxide 23 mmol/L (23-31); Chloride 98 mmol/L (98-107); Sodium 138 mmol/L (136-145)
[2022-02-04 09:14] LABS: Albumin 2.8 g/dL (3.4-4.8); BUN (Urea Nitrogen) 13 mg/dL (9.8-20.1); BUN/Creatinine Ratio 7.14; Calc. Creatinine Clearance 35 mL/min (70-130); Calcium 8.1 mg/dL (7.8-10.44); Estimated GFR 30; Glucose 107 mg/dL (80-115)
[2022-02-04 09:16] LABS: Phosphorus 1.9 mg/dL (2.3-4.7)
[2022-02-04 09:17] LABS: Anion Gap 20 mmol/L (10-20)
[2022-02-04] MEDS: Enoxaparin Sodium 30 MG/0.3 ML SYRINGE SC SCH (09:26)
[2022-02-04] MEDS: Megestrol Acetate 800 MG/20 ML UDCUP PO SCH (09:26)
[2022-02-04] MEDS: Aspirin 325 MG TAB PO SCH (09:26)
[2022-02-04] MEDS: Ferrous Sulfate 325 MG TAB PO SCH (09:26)
[2022-02-04] MEDS ORDERED: Polyethylene Glycol 3350 17 GM Packet PO SCH (10:15)
[2022-02-04] MEDS ORDERED: Potassium Phosphate 30 MMOL in Sodium Chloride 0.9% 250 ML 250 ML IVPB SCH (10:30)
[2022-02-04] MEDS: Lactated Ringer's 1,000 ML IV SCH (11:03)
[2022-02-04 11:05] LABS: Eosinophils 7 % (0-10); Lymphocytes 25 % (21-51); MDiff Complete? YES; Monocytes 8 % (0-10); Neutrophil 59 % (42-75); Platelet Morphology Comment Appears Adequate; RBC Morphology Normal; Reactive Lymphocytes 1 % (0-10)
[2022-02-04 11:08] LABS: Magnesium 1.6 mg/dL (1.6-2.6)
[2022-02-04] MEDS: hydrALAZINE 20 MG/ML VIAL SLOW IVP PRN (12:51)
[2022-02-04 13:51] LABS: Vancomycin, Random 15.7 ug/mL (See Comment)
[2022-02-04] MEDS ORDERED: VANCOMYCIN 1.25 GM/250 ML BAG 1.25 GM in Premix Bag 1 BAG IVPB SCH (16:00)
[2022-02-04] MEDS ORDERED: Scopolamine 1.5 mg/72 hour Patch TD SCH (18:00)
[2022-02-04] MEDS: Ondansetron ODT 4 MG TAB PO PRN (18:37)
[2022-02-04] MEDS: Atorvastatin Calcium 40 MG TAB PO SCH (21:10)
[2022-02-04] MEDS: cefTRIAXone\\ROCEPHIN 2 GM in Sodium Chloride 0.9% 100 ML IVPB SCH (21:11)
[2022-02-05] MEDS: Lactated Ringer's 1,000 ML IV SCH ×3 (02:42→15:12)
[2022-02-05 05:30] LABS: Albumin 2.8 g/dL (3.4-4.8); Anion Gap 15 mmol/L (10-20); BUN (Urea Nitrogen) 11 mg/dL (9.8-20.1); BUN/Creatinine Ratio 6.43; Calc. Creatinine Clearance 38 mL/min (70-130); Calcium 7.3 mg/dL (7.8-10.44); Carbon Dioxide 31 mmol/L (23-31); Chloride 96 mmol/L (98-107); Estimated GFR 32; Glucose 93 mg/dL (80-115); Phosphorus 3.4 mg/dL (2.3-4.7); Potassium 2.8 mmol/L (3.5-5.1); Sodium 139 mmol/L (136-145)
[2022-02-05] MEDS ORDERED: Potassium Chloride 40 MEQ in Premix Bag 1 BAG IVPB SCH (06:00)
[2022-02-05] MEDS: Levothyroxine Sodium 125 MCG TAB PO SCH (06:04)
[2022-02-05 06:12] LABS: Magnesium 1.4 mg/dL (1.6-2.6)
[2022-02-05] MEDS ORDERED: Magnesium Sulfate 2 GM in Sodium Chloride 0.9% 100 ML IVPB SCH (06:30)
[2022-02-05] MEDS ORDERED: Magnesium 2 GM/50 ML(in water) 2 GM in Premix Bag 1 BAG IVPB SCH ×2 (08:00→12:00)
[2022-02-05] MEDS: Ferrous Sulfate 325 MG TAB PO SCH (09:34)
[2022-02-05] MEDS: Enoxaparin Sodium 30 MG/0.3 ML SYRINGE SC SCH (09:34)
[2022-02-05] MEDS: Megestrol Acetate 800 MG/20 ML UDCUP PO SCH (09:34)
[2022-02-05] MEDS: Polyethylene Glycol 3350 17 GM Packet PO SCH (09:35)
[2022-02-05] MEDS ORDERED: Potassium Chloride 20 MEQ TAB PO SCH (10:00)
[2022-02-05] MEDS ORDERED: Bupivacaine/Epinephrine 0.25% 30 ML VIAL ONE (10:08)
[2022-02-05 10:37] LABS: Potassium 3.7 mmol/L (3.5-5.1)
[2022-02-05] MEDS ORDERED: fentaNYL Citrate/PF 100 MCG/2 ML SYRINGE ONE (10:42)
[2022-02-05] MEDS ORDERED: SUGAMMADEX SODIUM 200 MG/2 ML VIAL ONE (10:48)
[2022-02-05] MEDS ORDERED: Sodium Chloride 0.9% 100 ML ONE (10:56)
[2022-02-05] MEDS ORDERED: cefOXitin 2 GM VIAL ONE (10:56)
[2022-02-05] MEDS ORDERED: ePHEDrine 50 MG/ML VIAL ONE (11:07)
[2022-02-05] MEDS ORDERED: Phenylephrine 10 MG/ML VIAL ONE (11:07)
[2022-02-05] MEDS ORDERED: PROPOFOL 200 MG/20 ML VIAL ONE (11:07)
[2022-02-05] MEDS ORDERED: Rocuronium Bromide 10 MG/ML (10ML VIAL) ONE (11:07)
[2022-02-05] MEDS ORDERED: Ondansetron PF 4 MG/2 ML Vial ONE (11:07)
[2022-02-05] MEDS ORDERED: Succinylcholine 200 MG/10 ml SYRINGE FS ONE (11:07)
[2022-02-05] MEDS ORDERED: Lidocaine 1% PF 5 ML VIAL ONE (11:07)
[2022-02-05] MEDS ORDERED: Ondansetron HCl/PF 4 MG/2 ML Vial IVP PRN (11:59)
[2022-02-05] MEDS ORDERED: Promethazine HCl 25 MG/ML VIAL IM PRN (11:59)
[2022-02-05] MEDS ORDERED: Promethazine HCl 25 MG/ML VIAL IVPB PRN (11:59)
[2022-02-05] MEDS: Potassium Chloride 40 MEQ in Premix Bag 1 BAG IVPB SCH ×2 (13:54→14:25)
[2022-02-05] MEDS: ASCORBIC ACID DT SCH (14:42)
[2022-02-05] MEDS: IRON CARBONYL DT SCH (14:42)
[2022-02-05] MEDS: cefTRIAXone\\ROCEPHIN 2 GM in Sodium Chloride 0.9% 100 ML IVPB SCH (21:15)
[2022-02-05] MEDS: Atorvastatin Calcium 40 MG TAB PO SCH (21:15)
[2022-02-06] MEDS: Lactated Ringer's 1,000 ML IV SCH ×2 (00:18→11:20)
[2022-02-06] MEDS: hydrALAZINE 20 MG/ML VIAL SLOW IVP PRN ×2 (00:18→19:39)
[2022-02-06] MEDS: Levothyroxine Sodium 125 MCG TAB PO SCH (05:14)
[2022-02-06 05:58] LABS: Phosphorus 3.2 mg/dL (2.3-4.7)
[2022-02-06 05:59] LABS: ALT (SGPT) 13 U/L (8-55); AST (SGOT) 26 U/L (5-34); Albumin 2.8 g/dL (3.4-4.8); Alkaline Phosphatase 69 U/L (40-110); Anion Gap 14 mmol/L (10-20); BUN (Urea Nitrogen) 14 mg/dL (9.8-20.1); Bilirubin, Total 0.5 mg/dL (0.2-1.2); Calc. Creatinine Clearance 34 mL/min (70-130); Calcium 7.5 mg/dL (7.8-10.44); Carbon Dioxide 27 mmol/L (23-31); Chloride 97 mmol/L (98-107); Estimated GFR 28; Globulin 2.7 g/dL (2.4-3.5); Glucose 93 mg/dL (80-115); Potassium 4.2 mmol/L (3.5-5.1); Protein, Total 5.5 g/dL (5.8-8.1); Sodium 134 mmol/L (136-145)
[2022-02-06] MEDS ORDERED: Ergocalciferol 1.25 MG(50,000 UNITS) CAP PO SCH (09:00)
[2022-02-06] MEDS: Megestrol Acetate 800 MG/20 ML UDCUP PO SCH (09:54)
[2022-02-06] MEDS: Ferrous Sulfate 325 MG TAB PO SCH (09:54)
[2022-02-06] MEDS: Polyethylene Glycol 3350 17 GM Packet PO SCH (09:54)
[2022-02-06] MEDS: Enoxaparin Sodium 30 MG/0.3 ML SYRINGE SC SCH (11:01)
[2022-02-06 16:42] VITALS: BP 189/76; TEMP 97.6
== END 2022-02-06 20:20 | DRG 854 ==
LOC: ERS 18:29 → 2NO 20:46 → OBSVTOIN 02-02 07:31
PROVIDERS: ADMIT Internal Medicine; ATTEND Internal Medicine
PROC: 3E03329 Introduction of Other Anti-infective into Peripheral Vein, Percutaneous Approach (ICD-10-PCS; 2022-02-02)
PROC: 02HV33Z Insertion of Infusion Device into Superior Vena Cava, Percutaneous Approach (ICD-10-PCS; 2022-02-04)
PROC: 0FT44ZZ Resection of Gallbladder, Percutaneous Endoscopic Approach (ICD-10-PCS; principal; 2022-02-05)
DX: A41.1 Sepsis due to other specified staphylococcus (principal); E87.1 Hypo-osmolality and hyponatremia; N17.9 Acute kidney failure, unspecified; N30.00 Acute cystitis without hematuria; E87.2 Acidosis; K80.00 Calculus of gallbladder with acute cholecystitis without obstruction; N18.4 Chronic kidney disease, stage 4 (severe); I69.351 Hemiplegia and hemiparesis following cerebral infarction affecting right dominant side; Z20.822 Contact with and (suspected) exposure to COVID-19; E03.9 Hypothyroidism, unspecified; E87.6 Hypokalemia; E86.0 Dehydration; E55.9 Vitamin D deficiency, unspecified; E83.39 Other disorders of phosphorus metabolism; F17.210 Nicotine dependence, cigarettes, uncomplicated; I12.9 Hypertensive chronic kidney disease with stage 1 through stage 4 chronic kidney disease, or unspecified chronic kidney disease; E83.42 Hypomagnesemia; Z79.890 Hormone replacement therapy; Z79.82 Long term (current) use of aspirin; Z98.890 Other specified postprocedural states; Z79.899 Other long term (current) drug therapy
CPT/HCPCS: 36415; 71045; 74176; 80053; 80069; 80202; 81003; 81015; 82306; 82550; 82570; 83605; 83735; 83880; 84100; 84156; 84300; 84484; 85025; 87040; 87077; 87086; 87149; 87186; 88304; 88313; 88341; 88342; 93005; 93306; 93970; 96374; 96375; C1713; G0378; J0360; J0694; J0696; J1650; J2370; J2405; J2704; J3370; J3475; J3480; J3490; J7050; J7070; J7120; Q0162; U0002

== ENCOUNTER 2022-04-02 01:08 | Emergency (ER) | payer MEDICARE, OTHER ==
[2022-04-02] MEDS ORDERED: MD-Gastroview 120 ML BOT ONE (09:11)
== END 2022-04-02 02:50 ==
LOC: ERS 01:08
DX: K94.23 Gastrostomy malfunction (principal); I12.0 Hypertensive chronic kidney disease with stage 5 chronic kidney disease or end stage renal disease; N18.6 End stage renal disease; F17.220 Nicotine dependence, chewing tobacco, uncomplicated
CPT/HCPCS: 43762; 74018; Q9963

== ENCOUNTER 2022-04-03 04:42 | Emergency (ER) | payer MEDICARE, MEDICAID ==
[2022-04-03] MEDS ORDERED: GASTROGRAFIN 30 ML BOT ONE (09:48)
== END 2022-04-03 05:13 ==
LOC: ERS 04:42
DX: K94.23 Gastrostomy malfunction (principal); I12.0 Hypertensive chronic kidney disease with stage 5 chronic kidney disease or end stage renal disease; N18.6 End stage renal disease; F17.220 Nicotine dependence, chewing tobacco, uncomplicated
CPT/HCPCS: 43762; 74018; Q9963

== ENCOUNTER 2022-04-03 18:53 | Emergency (ER) | payer MEDICARE, MEDICAID ==
[~2022-04-03 18:53] MED LIST changes: +GASTROGRAFIN 30 ML BOT ONE; -Lidocaine 1% PF 5 ML VIAL ONE; -PHENYLEPHRINE-NS 100 MCG/ML 10 ML SYRINGE ONE; -PROPOFOL 200 MG/20 ML VIAL ONE; -Succinylcholine Chloride 20 MG/ML 10 ml SYRINGE FS ONE; -ePHEDrine/0.9% NaCl/PF SYRINGE 50 mg/10 ml ONE
== END 2022-04-03 20:34 ==
LOC: ERS 18:53
DX: K94.23 Gastrostomy malfunction (principal); I12.0 Hypertensive chronic kidney disease with stage 5 chronic kidney disease or end stage renal disease; N18.6 End stage renal disease; F17.220 Nicotine dependence, chewing tobacco, uncomplicated
CPT/HCPCS: 43762; 74018; Q9963

== ENCOUNTER 2022-05-04 12:38 | Inpatient (IN) | payer MEDICARE, MEDICAID ==
[2022-05-04 13:28] LABS: #Basophils 0.1 thou/uL (0.0-0.2); #Eosinphils 0.3 thou/uL (0.0-0.7); #Lymphocytes 2.1 thou/uL (1.20-3.40); #Neutrophils 10.5 thou/uL (1.40-6.50); %Basophils 0.4 % (0.0-1.0); %Eosinophils 2.3 % (0.0-10.0); %Lymphocytes 15.1 % (21.0-51.0); %Monocytes 7.3 % (0.0-10.0); Mean Corpuscular HGB CONC 31.3 g/dL (32.0-36.0); Mean Corpuscular Hemoglobin 30.2 pg (27.0-31.0); Mean Corpuscular Volume 96.5 fl (78.0-98.0); Platelet Count 380 thou/uL (130-400); RBC Distribution Width 14.3 % (11.5-14.5); Red Blood Cell (RBC) Count 3.96 mill/uL (4.20-5.40)
[2022-05-04 14:12] LABS: ALT (SGPT) 55 U/L (8-55); AST (SGOT) 30 U/L (5-34); Albumin 3.3 g/dL (3.4-4.8); Alkaline Phosphatase 86 U/L (40-110); Anion Gap 18 mmol/L (10-20); BUN (Urea Nitrogen) 104 mg/dL (9.8-20.1); Bilirubin, Total 0.4 mg/dL (0.2-1.2); Calc. Creatinine Clearance 0 mL/min (70-130); Calcium 10.2 mg/dL (7.8-10.44); Carbon Dioxide 18 mmol/L (23-31); Chloride 113 mmol/L (98-107); Estimated GFR 19; Globulin 4.8 g/dL (2.4-3.5); Glucose 118 mg/dL (80-115); Potassium 4.4 mmol/L (3.5-5.1); Protein, Total 8.1 g/dL (5.8-8.1); Sodium 145 mmol/L (136-145)
[2022-05-04] MEDS ORDERED: Morphine 4 MG/ML VIAL ONE (14:45)
[2022-05-04 14:46] LABS: Bacteria/HPF 4+ HPF (None Seen); Bilirubin Negative (Negative); Blood, Urine Negative (Negative); Clarity Cloudy (Clear); Glucose, Urine (Dipstick) Normal (Negative); Ketone, Urine Negative (Negative); Leukocyte 75 Leu/uL (Negative); Nitrite Negative (Negative); Protein, Urine (Dipstick) 30 mg/dL (Neg-Trace); RBC/HPF 0-3 HPF (0-3); Specific Gravity, Urine 1.016 (1.002-1.036); Squamous Epithelial 0-3 HPF (0-3); Urobilinogen Normal mg/dL (Less than 2)
[2022-05-04] MEDS ORDERED: Cefepime 2 GM VIAL ONE (16:20)
[2022-05-04 18:12] LABS: Hemoglobin A1c 5.1 % (4.0-6.0)
[2022-05-04] MEDS ORDERED: LACOSAMIDE 10 MG/ML PER TUBE SCH (21:00)
[2022-05-04] MEDS: Lactated Ringer's 1,000 ML IV SCH (21:39)
[2022-05-05] MEDS: Lactated Ringer's 1,000 ML IV SCH ×2 (03:24→08:31)
[2022-05-05] MEDS ORDERED: Polyethylene Glycol 3350 17 GM Packet PER TUBE PRN (06:18)
[2022-05-05] MEDS: Amlodipine 10 MG TAB PER TUBE SCH (08:28)
[2022-05-05] MEDS: Floranex 1 GM Packet PER TUBE SCH (08:28)
[2022-05-05] MEDS: Famotidine 20 MG TAB PER TUBE SCH (08:28)
[2022-05-05] MEDS: Aspirin Chewable 81 MG TAB PER TUBE SCH (08:28)
[2022-05-05] MEDS: Enoxaparin Sodium 30 MG/0.3 ML SYRINGE SC SCH (08:28)
[2022-05-05] MEDS: Levothyroxine Sodium 125 MCG TAB PER TUBE SCH (08:29)
[2022-05-05] MEDS: Atorvastatin Calcium 40 MG TAB PER TUBE SCH (08:29)
[2022-05-05] MEDS ORDERED: Polyethylene Glycol 3350 17 GM Packet PER TUBE SCH (09:00)
[2022-05-05 09:05] LABS: #Eosinphils 0.4 thou/uL (0.0-0.7); #Lymphocytes 1.5 thou/uL (1.20-3.40); #Monocytes 0.9 thou/uL (0.11-0.59); #Neutrophils 7.3 thou/uL (1.40-6.50); %Basophils 0.4 % (0.0-1.0); %Eosinophils 4.2 % (0.0-10.0); %Lymphocytes 14.7 % (21.0-51.0); %Monocytes 9.1 % (0.0-10.0); %Neutrophils 71.6 % (42.0-75.0); Mean Corpuscular HGB CONC 31.4 g/dL (32.0-36.0); Mean Corpuscular Hemoglobin 30.5 pg (27.0-31.0); Mean Corpuscular Volume 97.1 fl (78.0-98.0); Mean Platelet Volume 6.9 fL (7.4-10.4); Platelet Count 324 thou/uL (130-400); Red Blood Cell (RBC) Count 3.61 mill/uL (4.20-5.40); White Blood Cell (WBC) Count 10.2 thou/uL (4.8-10.8)
[2022-05-05 09:22] LABS: Anion Gap 15 mmol/L (10-20); BUN (Urea Nitrogen) 87 mg/dL (9.8-20.1); Calc. Creatinine Clearance 24 mL/min (70-130); Calcium 9.6 mg/dL (7.8-10.44); Carbon Dioxide 18 mmol/L (23-31); Chloride 119 mmol/L (98-107); Estimated GFR 23; Glucose 94 mg/dL (80-115); Potassium 4.6 mmol/L (3.5-5.1); Sodium 147 mmol/L (136-145)
[2022-05-05] MEDS ORDERED: Lacosamide 50 MG in Sodium Chloride 0.9% 50 ML IVPB SCH (11:30)
[2022-05-05] MEDS: Calcium Carbonate 500 MG ChewTAB PER TUBE SCH (11:49)
[2022-05-05] MEDS: Lacosamide 50 MG in Sodium Chloride 0.9% 50 ML IVPB SCH (20:58)
[2022-05-06 02:53] VITALS: BMI 21.7
[2022-05-06 07:13] LABS: #Eosinphils 0.3 thou/uL (0.0-0.7); #Lymphocytes 1.7 thou/uL (1.20-3.40); #Neutrophils 8.8 thou/uL (1.40-6.50); %Basophils 0.1 % (0.0-1.0); %Eosinophils 2.7 % (0.0-10.0); %Lymphocytes 14.2 % (21.0-51.0); %Monocytes 8.5 % (0.0-10.0); %Neutrophils 74.4 % (42.0-75.0); Hemoglobin 10.8 g/dL (12.0-16.0); Mean Corpuscular HGB CONC 32.5 g/dL (32.0-36.0); Mean Corpuscular Hemoglobin 31.1 pg (27.0-31.0); Mean Corpuscular Volume 95.9 fl (78.0-98.0); Platelet Count 357 10x3/uL (130-400); Red Blood Cell (RBC) Count 3.46 mill/uL (4.20-5.40); White Blood Cell (WBC) Count 11.8 10x3/uL (4.8-10.8)
[2022-05-06 07:21] LABS: Anion Gap 16 mmol/L (10-20); BUN (Urea Nitrogen) 74 mg/dL (9.8-20.1); Calc. Creatinine Clearance 23 mL/min (70-130); Calcium 9.6 mg/dL (7.8-10.44); Carbon Dioxide 16 mmol/L (23-31); Chloride 122 mmol/L (98-107); Estimated GFR 22; Glucose 113 mg/dL (80-115); Potassium 4.4 mmol/L (3.5-5.1); Sodium 150 mmol/L (136-145)
[2022-05-06] MEDS: Levothyroxine Sodium 125 MCG TAB PER TUBE SCH (09:04)
[2022-05-06] MEDS: Atorvastatin Calcium 40 MG TAB PER TUBE SCH (09:04)
[2022-05-06] MEDS: Aspirin Chewable 81 MG TAB PER TUBE SCH (09:04)
[2022-05-06] MEDS: Enoxaparin Sodium 30 MG/0.3 ML SYRINGE SC SCH (09:04)
[2022-05-06] MEDS: Famotidine 20 MG TAB PER TUBE SCH (09:04)
[2022-05-06] MEDS: Floranex 1 GM Packet PER TUBE SCH (09:04)
[2022-05-06] MEDS: Calcium Carbonate 500 MG ChewTAB PER TUBE SCH (09:04)
[2022-05-06] MEDS: Amlodipine 10 MG TAB PER TUBE SCH (09:04)
[2022-05-06] MEDS: Lacosamide 50 MG in Sodium Chloride 0.9% 50 ML IVPB SCH ×2 (09:49→19:58)
[2022-05-07 06:42] LABS: #Eosinphils 0.2 thou/uL (0.0-0.7); #Monocytes 1.1 thou/uL (0.11-0.59); #Neutrophils 10.9 thou/uL (1.40-6.50); %Basophils 0.2 % (0.0-1.0); %Eosinophils 1.6 % (0.0-10.0); %Neutrophils 76.2 % (42.0-75.0); Hemoglobin 11.2 g/dL (12.0-16.0); Mean Corpuscular HGB CONC 31.4 g/dL (32.0-36.0); Mean Corpuscular Hemoglobin 30.3 pg (27.0-31.0); Mean Corpuscular Volume 96.7 fl (78.0-98.0); Mean Platelet Volume 7.1 fL (7.4-10.4); Platelet Count 370 10x3/uL (130-400); RBC Distribution Width 13.8 % (11.5-14.5); Red Blood Cell (RBC) Count 3.68 mill/uL (4.20-5.40); White Blood Cell (WBC) Count 14.2 10x3/uL (4.8-10.8)
[2022-05-07 07:00] LABS: Anion Gap 17 mmol/L (10-20); BUN (Urea Nitrogen) 64 mg/dL (9.8-20.1); Calc. Creatinine Clearance 22 mL/min (70-130); Calcium 9.7 mg/dL (7.8-10.44); Carbon Dioxide 15 mmol/L (23-31); Chloride 123 mmol/L (98-107); Estimated GFR 22; Glucose 118 mg/dL (80-115)
[2022-05-07 07:07] LABS: Sodium 151 mmol/L (136-145)
[2022-05-07] MEDS: Aspirin Chewable 81 MG TAB PER TUBE SCH (09:47)
[2022-05-07] MEDS: Floranex 1 GM Packet PER TUBE SCH (09:47)
[2022-05-07] MEDS: Levothyroxine Sodium 125 MCG TAB PER TUBE SCH (09:47)
[2022-05-07] MEDS: Atorvastatin Calcium 40 MG TAB PER TUBE SCH (09:47)
[2022-05-07] MEDS: Enoxaparin Sodium 30 MG/0.3 ML SYRINGE SC SCH (09:47)
[2022-05-07] MEDS: Famotidine 20 MG TAB PER TUBE SCH (09:47)
[2022-05-07] MEDS: Calcium Carbonate 500 MG ChewTAB PER TUBE SCH (09:47)
[2022-05-07] MEDS: Amlodipine 10 MG TAB PER TUBE SCH (09:48)
[2022-05-07] MEDS: Lacosamide 50 MG in Sodium Chloride 0.9% 50 ML IVPB SCH ×2 (13:38→21:03)
[2022-05-07] MEDS: Acetaminophen 325 MG TAB PER TUBE PRN (21:04)
[2022-05-08] MEDS: Enoxaparin Sodium 30 MG/0.3 ML SYRINGE SC SCH (09:06)
[2022-05-08] MEDS: Amlodipine 10 MG TAB PER TUBE SCH (09:07)
[2022-05-08] MEDS: Famotidine 20 MG TAB PER TUBE SCH (09:07)
[2022-05-08] MEDS: Levothyroxine Sodium 125 MCG TAB PER TUBE SCH (09:07)
[2022-05-08] MEDS: Acetaminophen 325 MG TAB PER TUBE PRN (09:30)
[2022-05-08] MEDS: Lacosamide 50 MG in Sodium Chloride 0.9% 50 ML IVPB SCH (10:09)
[2022-05-08 17:02] VITALS: BP 152/75; TEMP 97.8
== END 2022-05-08 16:59 | disposition hospice, inpatient (51) | DRG 640 ==
LOC: ERS 12:38 → T4-A 16:33 → OBSVTOIN 05-05 15:08
PROVIDERS: ADMIT Student in an Organized Health Care Education/Training Program; ATTEND Student in an Organized Health Care Education/Training Program
DX: E86.0 Dehydration (principal); Z66 Do not resuscitate; Z51.5 Encounter for palliative care; Z20.822 Contact with and (suspected) exposure to COVID-19; E43 Unspecified severe protein-calorie malnutrition; N18.6 End stage renal disease; G93.41 Metabolic encephalopathy; J98.11 Atelectasis; I69.354 Hemiplegia and hemiparesis following cerebral infarction affecting left non-dominant side; I12.0 Hypertensive chronic kidney disease with stage 5 chronic kidney disease or end stage renal disease; E87.0 Hyperosmolality and hypernatremia; F03.90 Unspecified dementia, unspecified severity, without behavioral disturbance, psychotic disturbance, mood disturbance, and anxiety; E78.5 Hyperlipidemia, unspecified; G40.909 Epilepsy, unspecified, not intractable, without status epilepticus; E03.9 Hypothyroidism, unspecified; R13.12 Dysphagia, oropharyngeal phase; K21.9 Gastro-esophageal reflux disease without esophagitis; Z99.2 Dependence on renal dialysis; Z79.899 Other long term (current) drug therapy; Z79.82 Long term (current) use of aspirin; Z79.890 Hormone replacement therapy; Z90.49 Acquired absence of other specified parts of digestive tract; Z82.49 Family history of ischemic heart disease and other diseases of the circulatory system; Z87.01 Personal history of pneumonia (recurrent); Z93.1 Gastrostomy status; Z68.21 Body mass index [BMI] 21.0-21.9, adult
CPT/HCPCS: 36415; 36416; 70450; 71045; 72125; 80048; 80053; 81003; 81015; 83036; 83605; 84145; 84484; 85025; 87040; 87086; 93005; 97139; C9254; J0692; J1650; J2270; J7120; U0003; U0005